=== PATIENT | female | born 1930 | race Caucasian/White ===

== ENCOUNTER 2017-01-08 17:43 | Inpatient (IN) | payer MEDICARE, OTHER ==
[~2017-01-08] VITALS: Ht 160 cm; Wt 63.9 kg
[~2017-01-08 17:43] MED LIST: ACET325T33 PO; AMLO-218 PO; CALC-459 PO; CHOL50009 PO; DOCU-144 PO; DONE10TA7 PO; FER325 PO; LEVO137T24 PO; MEMA28CA PO; MULT-212 PO; OMEP10CA2 PO; OXYC-281 PO; PARO10TA26 PO; SERT100T PO; [UNRECOGNIZED DRUG - CODE] PO
--- NOTE | 2017-01-08 18:35 | RADRPT ---
PROCEDURE: XR Chest. CLINICAL INDICATION: Shortness of breath, assess for pulmonary edema TECHNIQUE: Single frontal view of the chest was obtained. COMPARISON: None available FINDINGS: The cardiomediastinal silhouette is borderline enlarged. Pulmonary vasculature is within normal gar its. There is diffuse increased interstitial thickening. There is prominent aortic calcification.. No signs of pleural fluid or pneumothorax are seen. There is diffuse bony demineralization. IMPRESSION: 1. Hypoventilatory examination. Borderline prominent. Heart size. 2. Prominent interstitial markings likely reflecting chronic lung change. 3. Prominent aortic calcification. RPTAT: HBST .Warner Arrington MD, MD Date Time Electronically viewed and signed by .Warner Arrington MD, on 01/08/2017 18:34 .T/
[2017-01-08] MEDS ORDERED: ACET325T45 PO (18:36)
[2017-01-08] MEDS ORDERED: AMLO-147 PO (18:39)
[2017-01-08] MEDS ORDERED: DOCU-159 PO (18:40)
[2017-01-08] MEDS ORDERED: DIVA125T14 PO (18:40)
[2017-01-08] MEDS ORDERED: ERGO500037 PO (18:41)
[2017-01-08] MEDS ORDERED: EXEL46P TD (18:42)
[2017-01-08] MEDS ORDERED: LEVO137T3 PO (18:43)
[2017-01-08] MEDS ORDERED: ATOR10TA65 PO (18:43)
[2017-01-08] MEDS ORDERED: SERT25TA83 PO (18:44)
[2017-01-08] MEDS ORDERED: TRAM-40 PO (18:45)
[2017-01-08 19:06] LABS: BASOPHILS % 0.3 % (0.0-2.0); EOSINOPHILS # 0.1 10^3/ul (0.0-0.5); EOSINOPHILS % 1.6 % (0.0-7.0); HEMATOCRIT 44.6 % (37.0-47.0); HEMOGLOBIN 14.9 g/dl (12.0-16.0); LYMPHOCYTES # 2.2 10^3/ul (0.8-2.9); LYMPHOCYTES % 30.9 % (15.0-51.0); MEAN CORPUSCULAR HEMOGLOBIN 29.8 pg (29.0-33.0); MEAN CORPUSCULAR HGB CONC 33.4 g/dl (32.0-37.0); MEAN CORPUSCULAR VOLUME 89.2 fl (82.0-101.0); MEAN PLATELET VOLUME 9.5 fl (7.4-10.4); MONOCYTE # 0.5 10^3/ul (0.3-0.9); MONOCYTES % 7.4 % (0.0-11.0); NEUTROPHIL # 4.1 10^3/ul (1.6-7.5); NEUTROPHILS % 59.1 % (39.0-77.0); PLATELET COUNT 320 10^3/UL (140-415); RED CELL DISTRIBUTION WIDTH 12.3 % (11.5-14.5)
--- NOTE | 2017-01-08 19:06 | ERA ---
ER Documentation Chief Complaint Date/Time DATE: 01/08/17 TIME: 19:02 Chief Complaint CHEST PAIN WITH MILD SOB PER STAFF. NONVERBAL. COMPLAINT PER FAMILY HPI 86-year-old female with a history of CHF, hypertension, hypothyroidism, dementia , and contractures sent from her snf for evaluation of weight gain and possible heart failure. The patient is unable to give a history as she is nonverbal at baseline per EMS. ROS Limited secondary to clinical condition, nonverbal, dementia Medications Home Meds Reported Medications Tramadol Hcl* (Ultram*) 50 Mg Tablet, 50 MG PO Q12H Y for PAIN 1-01/13, TAB 01/08/17 Sertraline Hcl* (Sertraline Hcl*) 25 Mg Tablet, 25 MG PO DAILY, #30 TAB 01/08/17 Atorvastatin Calcium (Atorvastatin Calcium) 10 Mg Tablet, 10 MG PO QHS, #30 TAB 01/08/17 Levothyroxine Sodium* (Levothyroxine Sodium*) 137 Mcg Tablet, 137 MCG PO BEFORE BREAKFAST, #30 TAB 01/08/17 Rivastigmine* Patch (Exelon* Patch) 4.6 Mg/24 Hr Patch.td24, 1 PATCH TD Q24H, PATCH 01/08/17 Ergocalciferol (Vitamin D2) (VITAMIN D2) 50,000 Unit Capsule, 70277 UNIT PO Q7D , CAP 01/08/17 Docusate Sodium* (Docusate Sodium*) 100 Mg Capsule, 100 MG PO BID, #60 CAP 01/08/17 Divalproex Sodium* (Depakote*) 125 Mg Tablet.dr, 250 MG PO TID, #90 TAB 01/08/17 Amlodipine Besylate* (Amlodipine Besylate*) 10 Mg Tablet, 10 MG PO DAILY, #30 TAB HOLD FOR SBP LESS THAN 110 MMHG OR HR LESS THAN 60 BPM 01/08/17 Acetaminophen* (Acetaminophen*) 325 Mg Tablet, 650 MG PO BID Y for PAIN AND OR ELEVATED TEMP, #30 TAB 01/08/17 Discontinued Reported Medications Paroxetine Hcl* (Paxil*) 10 Mg Tablet, 5 MG PO HS, TAB 01/27/14 Sertraline Hcl* (Zoloft*) 100 Mg Tablet, 100 MG PO DAILY, TAB 01/27/14 Acetaminophen* (Tylenol*) 325 Mg Tablet, 650 MG PO Q4H Y for MILD PAIN LEVEL 1-3 , TAB 01/27/14 Oxycodone Hcl-Acetaminophen* (Percocet*) 5-325 Mg Tablet, 2 TAB PO Q4H Y for SEVERE PAIN LEVEL 7-10, TAB 01/27/14 Oxycodone Hcl-Acetaminophen* (Percocet*) 5-325 Mg Tablet, 1 TAB PO Q6 Y for PAIN , TAB 01/27/14 Docusate Sodium* (Colace*) 100 Mg Capsule, 100 MG PO BID Y for CONSTIPATION, CAP 01/27/14 Donepezil* (Aricept*) 10 Mg Tablet, 10 MG PO QHS, TAB 01/27/14 Amlodipine Besylate* (Norvasc*) 10 Mg Tablet, 10 MG PO DAILY, TAB 01/27/14 Ferrous Sulfate* (Ferrous Sulfate*) 325 Mg Tabec, 325 MG PO TID, TAB 01/27/14 Memantine* (Namenda* XR) 28 Mg Cap.spr.24, 28 MG PO DAILY, TAB 01/27/14 Levothyroxine Sodium* (Synthroid*) 137 Mcg Tablet, 137 MCG PO AC BREAKFAST, TAB 01/27/14 Omeprazole* (Prilosec*) 10 Mg Capsule.dr, 10 MG PO AC BREAKFAST, CAP 01/27/14 Amino Acids/Protein Hydrolys (Pro-Stat 64 Liquid) 30 Ml Liquid, 30 ML PO DAILY 01/27/14 Multivitamin With Minerals (ONE DAILY) 1 Each Tablet, 1 EACH PO DAILY 01/27/14 Calcium Carbonate (Calcium Carbonate) 500 Mg Tab.chew, 500 MG PO BID, TAB.CHEW 01/27/14 Cholecalciferol* (Vitamin D*) 5,000 Unit Tablet, 62334 UNIT PO WEEKLY ON THURSDAY, TAB 01/27/14 Allergies Allergies: Coded Allergies: Penicillins (Verified Allergy, Severe, 01/08/17) lactose (Unverified Allergy, Unknown, 01/08/17) PMhx/Soc History of Surgery: Yes (Right Hip ORIF 11/2013, Left Hip ORIF 2010, appendectomy) Anesthesia Reaction: No Hx Neurological Disorder: No Hx Respiratory Disorders: No Hx Cardiac Disorders: Yes (Hypertension, Palpitation) Hx Psychiatric Problems: Yes (Dementia, Alzheimer's ) Hx Miscellaneous Medical Probl: No Hx Alcohol Use: No Hx Substance Use: No Hx Tobacco Use: No Smoking Status: Never smoker FmHx Family History: other (Unable to obtain) Physical Exam Vitals Vital Signs Date Time Temp Pulse Resp B/P Pulse Ox O2 Delivery O2 Flow Rate FiO2 01/08/17 18:37 75 16 130/69 96 Room Air 01/08/17 17:50 97.8 78 16 137/70 95 Physical Exam Const: well appearing, no distress Head: Atraumatic Eyes: Normal Conjunctiva ENT: Normal External Ears, Nose and Mouth. Neck: No JVD. No meningismus. Resp: Diminished bilaterally with bibasilar crackles, however poor respiratory effort Cardio: Regular rate and rhythm, 2/6 HSM Abd: Soft, non tender, non distended. Normal bowel sounds Skin: No petechiae or rashes Ext: No cyanosis, or edema. contractures of extremities Neur: Awake and alert, makes incomprehensible sounds, nonverbal. spontaneously moving arms and legs. Psych: calm Procedures/MDM EMERGENT LABS AND DIAGNOSTIC STUDIES: Lab Results above were reviewed and interpreted by me. CBC and BMP unremarkable Troponin within normal limits BNP elevated Urinalysis shows evidence of possible infection 12-lead EKG was interpreted by Pippa Guadarrama MD: Atrial flutter versus normal sinus rhythm Dense of old anterior, lateral, inferior infarct Normal axis Normal intervals No acute ST or T wave changes suggestive of acute ischemia or STEMI. Radiology Results as interpreted by Radiology below were reviewed by Marcus Guadarrama MD: CXR: IMPRESSION: 1. Hypoventilatory examination. Borderline prominent. Heart size. 2. Prominent interstitial markings likely reflecting chronic lung change. 3. Prominent aortic calcification. RPTAT: HBST .Warner Arrington MD, Date Time Electronically viewed and signed by .Warner Arrington MD, on 01/08/2017 18:34 Initial Nursing notes reviewed. Previous Medical Records requested via the Electronic Health Record. EMERGENCY DEPARTMENT COURSE / MEDICAL DECISION MAKING: Patient is presenting with weight gain and for evaluation for CHF. Initial vitals were stable. EKG did not show acute ischemia. Initial troponin is negative. Chest x-ray did not show evidence of fluid overload or pneumonia. I spoke with her primary care doctor, , requested the patient be admitted for her weight gain and possible heart failure. Patient's blood pressure was elevated (>120/80) but appears stable without evidence of hypertensive emergency or urgency. The patient was counseled about the risks of hypertension and urged to pursue outpatient monitoring and therapy within a week with their primary care physician. Departure Diagnosis: Primary Impression: Weight gain Condition: Stable SOILA GUADARRAMA MD Jan 08, 2017 19:06
[2017-01-08 19:19] LABS: ANION GAP 9 (8-16); BLOOD UREA NITROGEN 11 mg/dl (7-20); CALCIUM 9.8 mg/dl (8.4-10.2); CARBON DIOXIDE 32 mmol/L (21-31); CHLORIDE 104 mmol/L (97-110); CREATININE 0.56 mg/dl (0.44-1.00); GLUCOSE 87 mg/dl (70-220); POTASSIUM 4.3 mmol/L (3.5-5.1); SODIUM 141 mmol/L (135-144)
[2017-01-08 19:34] LABS: TROPONIN-I < 0.012 ng/ml (0.00-0.12)
[2017-01-08 20:18] LABS: ADD UMIC YES; UR ASCORBIC ACID 40 mg/dL (NEGATIVE); UR BILIRUBIN (Dip) NEGATIVE (NEGATIVE); UR BLOOD (Dip) 1+ mg/dL (NEGATIVE); UR CLARITY CLOUDY (CLEAR); UR COLOR YELLOW (YELLOW); UR GLUCOSE (Dip) NEGATIVE (NEGATIVE); UR KETONES (Dip) NEGATIVE (NEGATIVE); UR LEUKOCYTE ESTERASE (Dip) 3+ Leu/ul (NEGATIVE); UR MUCUS FEW /HPF (NONE SEEN); UR NITRITE (Dip) NEGATIVE (NEGATIVE); UR RBC 19 /HPF (0-5); UR SPECIFIC GRAVITY (Dip) 1.012 (1.003-1.030); UR TOTAL PROTEIN (Dip) NEGATIVE (NEGATIVE); UR UROBILINOGEN (Dip) NEGATIVE (NEGATIVE)
[2017-01-08] MEDS ORDERED: ACETAMINOPHEN 325 MG TAB PO PRN (20:30)
[2017-01-08] MEDS ORDERED: ONDANSETRON 4 MG INJ IV PRN (20:30)
[2017-01-08 20:50] VITALS: Ht 160 cm; Wt 63.9 kg
[2017-01-08] MEDS ORDERED: RIVASTIGMINE 4.6MG/24H PATCH TRANSDERM SCH (22:30)
[2017-01-08] MEDS ORDERED: ERGOCALCIFEROL 50,000 UNIT CAP PO SCH (22:30)
[2017-01-08] MEDS ORDERED: traMADol 50 MG TAB PO PRN (22:30)
[2017-01-08] MEDS ORDERED: DOCUSATE SODIUM 100 MG CAP PO SCH (22:30)
[2017-01-09] MEDS: DIVALPROEX (EC) 125 MG TAB PO SCH ×4 (00:07→20:53)
[2017-01-09 03:16] VITALS: BP 142/65; RESP 16
[2017-01-09 05:13] LABS: BASOPHILS % 0.6 % (0.0-2.0); EOSINOPHILS # 0.3 10^3/ul (0.0-0.5); EOSINOPHILS % 3.4 % (0.0-7.0); HEMOGLOBIN 13.9 g/dl (12.0-16.0); LYMPHOCYTES # 2.4 10^3/ul (0.8-2.9); LYMPHOCYTES % 32.3 % (15.0-51.0); MEAN CORPUSCULAR HEMOGLOBIN 29.3 pg (29.0-33.0); MEAN CORPUSCULAR HGB CONC 33.1 g/dl (32.0-37.0); MEAN CORPUSCULAR VOLUME 88.4 fl (82.0-101.0); MEAN PLATELET VOLUME 9.5 fl (7.4-10.4); MONOCYTE # 0.7 10^3/ul (0.3-0.9); MONOCYTES % 9.2 % (0.0-11.0); NEUTROPHIL # 3.9 10^3/ul (1.6-7.5); NEUTROPHILS % 53.8 % (39.0-77.0); PLATELET COUNT 300 10^3/UL (140-415); RED BLOOD COUNT 4.75 10^6/ul (4.20-5.40); RED CELL DISTRIBUTION WIDTH 12.6 % (11.5-14.5); WHITE BLOOD COUNT 7.3 10^3/ul (4.8-10.8)
[2017-01-09 05:49] LABS: CALCIUM 9.4 mg/dl (8.4-10.2); CREATININE 0.47 mg/dl (0.44-1.00); POTASSIUM 3.8 mmol/L (3.5-5.1)
[2017-01-09] MEDS: LEVOTHYROXINE 137 MCG TAB PO SCH (07:31)
[2017-01-09 08:20] VITALS: BP 113/54; RESP 17
[2017-01-09] MEDS: AMLODIPINE 10 MG TAB PO SCH (08:36)
[2017-01-09] MEDS: SERTRALINE 50 MG TAB PO SCH (08:36)
[2017-01-09] MEDS: DOCUSATE SODIUM 100 MG CAP PO SCH ×2 (08:39→20:52)
[2017-01-09] MEDS ORDERED: DIVALPROEX (EC) 125 MG TAB PO SCH (09:00)
[2017-01-09] MEDS: RIVASTIGMINE 4.6MG/24H PATCH TRANSDERM SCH (11:32)
[2017-01-09] MEDS ORDERED: LEVALBUTEROL (NEB) 0.63 MG/3 ML AMP HHN PRN (13:00)
--- NOTE | 2017-01-09 13:35 | HP ---
DATE OF ADMISSION: 01/08/2017 CHIEF COMPLAINT: Chest pain with mild shortness of breath per staff. The patient is nonverbal with underlying dementia. HISTORY OF PRESENT ILLNESS: The patient is an 86-year-old female with history of dementia, congesti ve heart failure, hypertension, hypothyroidism, anxiety and high cholesterol. The patient was sent from [facility] for complaints of shortness of breath in chains per family member and also evaluation for recent weight gain. The patient is nonverbal at baseline. Most of the history was obtained from medical records and talking to the nursing staff. The patient underwent a 12-lead EKG in the emergency room which revealed atrial flutter versus normal sinus rhythm and old anterior and lateral inferior infarct, no acute ST-T wave changes suggestive of acute ischemia, non-ST eleva tion myocardial infarction. The patient's troponin was negative on admission. However, the BNP was elevated to 486. Patient also noted to have positive leukocyte esterase on urinalysis. However, p atient did not have any leukocytosis. Chest x-ray in the emergency room revealed hypoventilatory ex amination, borderline prominent heart size, prominence of interstitial markings likely reflecting ch ronic lung change, prominent aortic calcifications. The patient will be admitted for further evalua tion and management. PAST MEDICAL HISTORY: Per HPI. PAST SURGICAL HISTORY: Right hip ORIF on 11/2013, left hip ORIF in 2010 and status post appendectom y. FAMILY HISTORY: Noncontributory. SOCIAL HISTORY: Patient is a resident of detention facility. No history of tobacco, alcohol or illicit drug use reported. ALLERGIES: PATIENT IS ALLERGIC TO PENICILLIN ANTIBIOTICS, LACTOSE. MEDICATIONS ON ADMISSION: Includes: 1. Tramadol. 2. Sertraline. 3. Atorvastatin. 4. Levothyroxine. 5. Exelon patch. 6. Vitamin D2. 7. Colace. 8. Depakote. 9. Amlodipine. 10. Tylenol. REVIEW OF SYSTEMS: A 12-point review of systems is negative unless what mentioned in the HPI. PHYSICAL ASSESSMENT: GENERAL: Well-developed, well-nourished female who is awake and nonverbal at baseline, moans in res ponse to touch. VITAL SIGNS: Temperature is 96.7, heart rate is 82, blood pressure is 113/54, respiratory rate 17, oxygen saturation 96% on room air. HEENT: Head is atraumatic, normocephalic. Pupils equal, round, reactive to light and accommodation . Oral mucosa is pink and moist. NECK: Supple, no cervical lymphadenopathy. JVD is present. LUNGS: Diminished bilaterally with bibasilar crackles with poor respiratory effort. No wheezing no kaylie. CARDIOVASCULAR: Irregular rhythm and rate. II/ murmur noted. ABDOMEN: Round, soft, nondistended, nontender. Bowel sounds present. No guarding, no rebound tend erness. EXTREMITIES: Mild edema 2+ bilateral lower extremity and contracted. NEUROLOGIC: The patient is awake, alert, spontaneously moves upper extremities and lower extremity with contracture awake, alert, nonverbal at baseline. LABORATORY DATA: On admission, CBC: White blood cells 7.0, hemoglobin 14.9, hematocrit 44.6, plate lets 320. Chemistry: Sodium is 141, potassium 4.3, chloride 104, carbon dioxide 32, anion gap 9, B UN is 11, creatinine 0.52, glucose 87, calcium 9.8. Troponin less than 0.012. BNP is 486. ASSESSMENT AND PLAN: 1. Possible congestive heart failure exacerbation. We will obtain 2D echo to evaluate left ventric ular and valvular function. We will ask Dr. Dyer to see patient in cardiology consultation. 2. Rule out acute coronary syndrome. We will obtain cardiac enzymes q.8 hours x2. 3. Shortness of breath secondary to congestive heart failure exacerbation. 4. Possible urinary tract infection. Will obtain urine culture and start Levaquin. 5. Hypothyroidism. Continue current dose of Synthroid. Will check TSH and T4. 6. Alzheimer dementia. We will continue Exelon patch. 7. Hypertension. The patient is currently normotensive. Further recommendations based on clinical course. We will continue Lovenox for deep venous thrombosis prophylaxis and Pepcid for peptic ulce r disease prophylaxis. Further recommendations based on clinical course. Plan of care discussed [facility] Dr. Mckinney. Dictated By: ALO GUERRERO HOT DOG VENDOR for FRANKY MCKINNEY MD SR/NTS Conf#: [id number] DID#: [id number]
[2017-01-09 13:52] LABS: CHOL/HDL RATIO 3.3 RATIO
[2017-01-09 14:22] LABS: THYROID STIMULATING HORMONE 4.91 MIU/L (0.465-4.680)
[2017-01-09] MEDS: FAMOTIDINE 20 MG TAB PO SCH (14:54)
[2017-01-09] MEDS: LEVOFLOXACIN 250MG/D5W (PMX) 50 ML IVPB SCH (14:54)
[2017-01-09] MEDS: ENOXAPARIN 30 MG/0.3 ML SYG SC SCH (14:55)
--- NOTE | 2017-01-09 16:16 | RADRPT ---
PROCEDURE: US Lower extremity Venous. CLINICAL INDICATION: Bilateral lower extremity edema TECHNIQUE: Multiple sonographic images of the bilateral lower extremity deep venous system was obt ained utilizing grayscale, color-flow, compressive sonography and doppler imaging with augmentation. The images were reviewed on a PACS workstation. COMPARISON: US LOWER EXTREMITY 01/27/2014 FINDINGS: There is normal compressibility and flow within the bilateral common femoral, femoral , posterior ti bial and popliteal veins. RPTAT: AA IMPRESSION: No sonographic evidence for deep venous thrombosis. .Humberto Rai MD, MD Date Time Electronically viewed and signed by .Humberto Rai MD, on 01/09/2017 16:16 .S/
[2017-01-09] MEDS ORDERED: FUROSEMIDE 20 MG INJ IV SCH (16:30)
[2017-01-09] MEDS: POTASSIUM CHLORIDE (SR) 10 MEQ TAB PO SCH (17:56)
[2017-01-09 18:59] LABS: CREATINE KINASE 32 IU/L (23-200)
[2017-01-09 19:11] LABS: CK-MB 0.49 ng/ml (0.0-2.4); TROPONIN-I < 0.012 ng/ml (0.00-0.12)
[2017-01-09 20:00] VITALS: BP 116/85; RESP 20
--- NOTE | 2017-01-09 20:17 | RADRPT ---
Echocardiogram Report Patient Name: IVY BRICENO Gender: Female Date: 1930 Study Date: 09-Jan-2017 Ceramic Coater: [facility] Location: 2264 Ref. Physician: ALO GUERRERO Quality: Good Procedures: Transthoracic echocardiogram with complete 2D, M-Mode, and doppler examination. Indications: Evaluate Left Ventricular function. Murmur. 2D/M Mode Doppler Measurement Value Normal Ranges Measurement Value Normal Ranges AoR Diam MM 3.0 cm AV Mean Dimitri 2.6 m/sec ACS MM 1.6 cm AV Mean PG 30.0 mmHg LA/Ao MM 1.0 AV Peak Dimitri 3.7 m/sec LA Dimen MM 3.0 cm AV Peak PG 54.0 mmHg LVIDd 2D 3.4 3.5 - 5.6 cm AV VTI 71.4 cm LVIDs 2D 2.7 2.1 - 4.1 cm MV E Peak Dimitri 0.9 m/sec LVPWd 2D 1.2 0.6 - 1.1 cm MV A Peak Dimitri 1.5 m/sec IVSd 2D 1.2 0.6 - 1.1 cm MV E/A 0.6 EDV 2D 48.9 cm3 MV Decel Time 323 msec ESV 2D 19.[address] [facility] 3 LA Dimen 2D 3.0 2.3 - 4.0 cm MV E/A 0.6 TR Peak Dimitri 2.9 m/sec TR Peak PG 33.7 mmHg Findings Left Ventricle: Hyperdynamic left ventricular systolic function. Normal left ventricular cavity size. Mild concentric left ventricular hypertrophy. Ejection fraction is visually estimated at >65 %. Tissue Doppler/Mitral Doppler indices are consistent with pseudonormalization with mildly elevated left atrial pressure (Stage II diastolic dysfunction). Right Ventricle: Normal right ventricular size. Normal right ventricular systolic function. Left Atrium: The left atrium is normal in size. Right Atrium: The right atrium is normal in size. Mitral Valve: Moderate mitral annular calcification. Trace mitral regurgitation. Aortic Valve: Moderate aortic stenosis. Mean PG 30.00 mmHg. Aortic cusps appear mildly calcified. Tricuspid Valve: Normal appearance of the tricuspid valve. There is trace tricuspid regurgitation. Pulmonic Valve: Normal pulmonic valve appearance. Pericardium: Normal pericardium with no significant pericardial effusion. Aorta: Normal aortic root. IVC: Normal size and normal respiratory collapse consistent with normal right atrial pressure. Pulmonary Artery: Not well visualized. Conclusions 1.Hyperdynamic left ventricular systolic function. Normal left ventricular cavity size. Mild concentric left ventricular hypertrophy. Ejection fraction is visually estimated at >65 %. Tissue Doppler/Mitral Doppler indices are consistent with pseudonormalization with mildly elevated left atrial pressure (Stage II diastolic dysfunction). 2.Moderate mitral annular calcification. Trace mitral regurgitation. 3.Moderate aortic stenosis by gradient only. LALO not calculated by lead medical technologist. Mean PG 30.00 mmHg. Aortic cusps appear mildly calcified. 4.Normal appearance of the tricuspid valve. There is trace tricuspid regurgitation. Electronically Signed By: Mathew Dyer 09-Jan-2017 20:16:56 -0700 Patient Name: IVY BRICENO Study Date: 09-Jan-2017 [id number]
[2017-01-09] MEDS: ISOSORBIDE DINITRATE 10 MG TAB PO SCH (20:53)
[2017-01-09] MEDS: ATORVASTATIN 10 MG TAB PO SCH (20:53)
[2017-01-09] MEDS ORDERED: INFLUENZA VIRUS VACCINE 0.5 ML SYG IM* ONE (21:00)
[2017-01-10 01:37] LABS: CREATINE KINASE 22 IU/L (23-200)
[2017-01-10 01:43] LABS: CK-MB 0.57 ng/ml (0.0-2.4)
[2017-01-10 01:44] LABS: TROPONIN-I < 0.012 ng/ml (0.00-0.12)
[2017-01-10 02:00] VITALS: BP 131/65; RESP 20
[2017-01-10] MEDS: FUROSEMIDE 20 MG INJ IV SCH ×2 (05:23→17:29)
[2017-01-10 06:34] LABS: BASOPHIL # 0.1 10^3/ul (0.0-0.1); BASOPHILS % 0.7 % (0.0-2.0); EOSINOPHILS # 0.4 10^3/ul (0.0-0.5); EOSINOPHILS % 4.8 % (0.0-7.0); HEMATOCRIT 39.6 % (37.0-47.0); HEMOGLOBIN 13.2 g/dl (12.0-16.0); LYMPHOCYTES # 1.9 10^3/ul (0.8-2.9); LYMPHOCYTES % 25.9 % (15.0-51.0); MEAN CORPUSCULAR HEMOGLOBIN 29.7 pg (29.0-33.0); MEAN CORPUSCULAR HGB CONC 33.3 g/dl (32.0-37.0); MEAN CORPUSCULAR VOLUME 89.2 fl (82.0-101.0); MEAN PLATELET VOLUME 9.5 fl (7.4-10.4); MONOCYTE # 0.7 10^3/ul (0.3-0.9); MONOCYTES % 9.4 % (0.0-11.0); NEUTROPHIL # 4.3 10^3/ul (1.6-7.5); NEUTROPHILS % 58.4 % (39.0-77.0); PLATELET COUNT 305 10^3/UL (140-415); RED BLOOD COUNT 4.44 10^6/ul (4.20-5.40); RED CELL DISTRIBUTION WIDTH 12.5 % (11.5-14.5); WHITE BLOOD COUNT 7.3 10^3/ul (4.8-10.8)
[2017-01-10 06:50] LABS: CALCIUM 9.4 mg/dl (8.4-10.2); CREATININE 0.55 mg/dl (0.44-1.00); POTASSIUM 3.6 mmol/L (3.5-5.1)
[2017-01-10] MEDS: LEVOTHYROXINE 137 MCG TAB PO SCH (07:59)
[2017-01-10 08:00] VITALS: BP 135/64; RESP 18
[2017-01-10] MEDS: DOCUSATE SODIUM 10 MG/ML (10ML CUP) PO SCH ×2 (09:35→20:06)
[2017-01-10] MEDS: SERTRALINE 50 MG TAB PO SCH (09:36)
[2017-01-10] MEDS: POTASSIUM CHLORIDE (SR) 10 MEQ TAB PO SCH (09:36)
[2017-01-10] MEDS: FAMOTIDINE 20 MG TAB PO SCH (09:36)
[2017-01-10] MEDS: AMLODIPINE 10 MG TAB PO SCH (09:37)
[2017-01-10] MEDS: ISOSORBIDE DINITRATE 10 MG TAB PO SCH ×3 (09:37→20:07)
[2017-01-10] MEDS: ENOXAPARIN 30 MG/0.3 ML SYG SC SCH (09:40)
[2017-01-10 09:58] LABS: ALBUMIN 3.3 g/dl (3.3-4.9); BILIRUBIN,INDIRECT 0.2 mg/dl (0-1.1); BILIRUBIN,TOTAL 0.2 mg/dl (0.2-1.3); TOTAL PROTEIN 6.4 g/dl (6.1-8.1)
[2017-01-10] MEDS: RIVASTIGMINE 4.6MG/24H PATCH TRANSDERM SCH (11:01)
[2017-01-10] MEDS: VALPROIC ACID LIQUID CUP 250 MG/5 ML CUP PO SCH ×3 (11:03→20:06)
--- NOTE | 2017-01-10 12:10 | PN ---
Date/Time of Note Date/Time of Note DATE: 01/10/17 TIME: 12:04 Assessment/Plan VTE Prophylaxis VTE Prophylaxis Intervention: other Lines/Catheters IV [facility] Urinary Cath still in place: No Assessment/Plan Assessment/Plan 1. Possible congestive heart failure exacerbation. We will obtain 2D echo to evaluate left ventricular and valvular function. We will ask Dr. Dyer to see patient in cardiology consultation. 2. Rule out acute coronary syndrome. We will obtain cardiac enzymes q.8 hours x2. 3. Shortness of breath secondary to congestive heart failure exacerbation. 4. Possible urinary tract infection. Will obtain urine culture and start Levaquin. 5. Hypothyroidism. Continue current dose of Synthroid. Will check TSH and T4. 6. Alzheimer dementia. We will continue Exelon patch. 7. Hypertension. The patient is currently normotensive. Further recommendations based on clinical course. We will continue Lovenox for deep venous thrombosis prophylaxis and Pepcid for peptic ulcer disease prophylaxis. Further recommendations based on clinical course. Plan of care discussed with Dr. Mckinney. Subjective 24 Hr Interval Summary Free Text/Dictation Steve any chest pain, shortness of breath, C/O DRY COUGH, AFEBRILE Cardiology follows. dw staff Constitutional: requiring O2 Exam/Review of Systems Vital Signs Vitals Vital Signs Date Time Temp Pulse Resp B/P Pulse Ox O2 Delivery O2 Flow Rate FiO2 01/10/17 08:00 97.5 76 18 135/64 95 01/08/17 20:10 Room Air Intake and Output 01/09/17 01/09/17 01/10/17 15:00 23:00 07:00 Intake Total 480 ml 0 ml Balance 480 ml 0 ml Exam Constitutional: alert Respiratory: diminished breath sounds, normal air movement Cardiovascular: regular rate and rhythm Gastrointestinal: non-tender, soft Musculoskeletal: nl extremities to inspection Results Result Diagram: 01/10/17 0535 01/10/17 0535 Results 24 hrs Laboratory Tests Test 01/09/17 18:07 01/10/17 00:51 01/10/17 05:35 Creatine Kinase 32 22 L Creatine Kinase Index 1.5 2.6 Creatinine Kinase MB (Mass) 0.49 0.57 Troponin I < 0.012 < 0.012 White Blood Count 7.3 Red Blood Count 4.44 Hemoglobin 13.2 Hematocrit 39.6 Mean Corpuscular Volume 89.2 Mean Corpuscular Hemoglobin 29.7 Mean Corpuscular Hemoglobin Concent 33.3 Red Cell Distribution Width 12.5 Platelet Count 305 Mean Platelet Volume 9.5 Neutrophils % 58.4 Lymphocytes % 25.9 Monocytes % 9.4 Eosinophils % 4.8 Basophils % 0.7 Nucleated Red Blood Cells % 0.0 Neutrophils # 4.3 Lymphocytes # 1.9 Monocytes # 0.7 Eosinophils # 0.4 Basophils # 0.1 Nucleated Red Blood Cells # 0.0 Sodium Level 137 Potassium Level 3.6 Chloride Level 103 Carbon Dioxide Level 30 Anion Gap 8 Blood Urea Nitrogen 12 Creatinine 0.55 Glucose Level 97 Calcium Level 9.4 Total Bilirubin 0.2 Direct Bilirubin 0.00 Indirect Bilirubin 0.2 Aspartate Amino Transf (AST/SGOT) 42 Alanine Aminotransferase (ALT/SGPT) 32 Alkaline Phosphatase 60 Total Protein 6.4 Albumin 3.3 Medications Medications Current Medications Acetaminophen (Tylenol Tab) 650 mg BID PRN PO PAIN AND OR ELEVATED TEMP; Start 01/08/17 at 22:30 Amlodipine Besylate (Norvasc) 10 mg DAILY PO Last administered on 01/10/17 09: 37; Admin Dose 10 MG; Start 01/09/17 at 09:00 Atorvastatin Calcium (Lipitor) 10 mg QHS PO Last administered on 01/09/17 20: 53; Admin Dose 10 MG; Start 01/09/17 at 21:00 Sertraline HCl (Zoloft) 25 mg DAILY PO Last administered on 01/10/17 09:36; Admin Dose 25 MG; Start 01/09/17 at 09:00 Tramadol HCl (Ultram) 50 mg Q12H PRN PO PAIN -01/13; Start 01/08/17 at 22:30 Ergocalciferol (Drisdol) 50,000 unit Tu@09 PO ; Start 01/13/17 at 09:00 Rivastigmine Tartrate 1 patch 1 patch Q24H TRANSDERM Last administered on 11:01; Admin Dose 1 PATCH; Start 01/09/17 at 10:15 Levofloxacin/ Dextrose (Levaquin 250 Mg/ D5W 50 ml (Pmx)) 50 ml @ 50 mls/hr Q24H IVPB Last administered on 01/09/17 14:54; Admin Dose 50 MLS/HR; Start at 14:00 Famotidine (Pepcid) 20 mg DAILY PO Last administered on 01/10/17 09:36; Admin Dose 20 MG; Start 01/09/17 at 13:00 Enoxaparin Sodium (Lovenox) 30 mg DAILY SC Last administered on 01/10/17 09:40 ; Admin Dose 30 MG; Start 01/09/17 at 13:00 Potassium Chloride (Klor-Con 10) 10 meq DAILY PO Last administered on 09:36; Admin Dose 10 MEQ; Start 01/09/17 at 16:30 Isosorbide Dinitrate (Isordil) 10 mg TID PO Last administered on 01/10/17 09: 37; Admin Dose 10 MG; Start 01/09/17 at 21:00 Docusate Sodium (Colace Liquid Cup) 100 mg BID PO Last administered on 09:35; Admin Dose 100 MG; Start 01/10/17 at 09:00 Valproate Sodium (Depakene Liquid Cup) 250 mg TID PO Last administered on 11:03; Admin Dose 250 MG; Start 01/10/17 at 09:00 TRAVIS MARTINS Jan 10, 2017 12:10
[2017-01-10 14:00] VITALS: BP 123/63; RESP 18
[2017-01-10] MEDS: LEVOFLOXACIN 250MG/D5W (PMX) 50 ML IVPB SCH (14:08)
[2017-01-10] MEDS: ACETAMINOPHEN 325 MG TAB PO PRN (14:08)
--- NOTE | 2017-01-10 15:42 | CONS ---
Date/Time of Note Date/Time of Note DATE: 01/10/17 TIME: 15:38 Assessment/Plan Assessment/Plan Additional Assessment/Plan Congestive heart failure Hypertension Dyslipidemia Hypothyroidism Anxiety Heart failure clinically compensated Continue Diurese with Lasix Continue Norvasc Continue Imdur Continue Lipitor Continue GI and DVT Prophylaxis Consultation Date/Type/Reason Admit Date/Time Jan 08, 2017 at 20:12 Constitutional: requiring O2 Social History Smoking Status: Never smoker Exam/Review of Systems Vital Signs Vitals Vital Signs Date Time Temp Pulse Resp B/P Pulse Ox O2 Delivery O2 Flow Rate FiO2 01/10/17 08:00 97.5 76 18 135/64 95 01/08/17 20:10 Room Air Intake and Output 01/09/17 01/09/17 01/10/17 15:00 23:00 07:00 Intake Total 480 ml 0 ml Balance 480 ml 0 ml Exam Psych: no complaints Head: atraumatic, normocephalic Neck: non-tender, supple Respiratory: clear to auscultation Cardiovascular: regular rate and rhythm Gastrointestinal: nl liver, spleen, non-tender, soft Extremities: normal pulses Results Result Diagram: 01/10/17 0535 01/10/17 0535 Results 24 hrs Laboratory Tests Test 01/09/17 18:07 01/10/17 00:51 01/10/17 05:35 01/10/17 13:00 Creatine Kinase 32 22 L Creatine Kinase Index 1.5 2.6 Creatinine Kinase MB (Mass) 0.49 0.57 Troponin I < 0.012 < 0.012 White Blood Count 7.3 Red Blood Count 4.44 Hemoglobin 13.2 Hematocrit 39.6 Mean Corpuscular Volume 89.2 Mean Corpuscular Hemoglobin 29.7 Mean Corpuscular Hemoglobin Concent 33.3 Red Cell Distribution Width 12.5 Platelet Count 305 Mean Platelet Volume 9.5 Neutrophils % 58.4 Lymphocytes % 25.9 Monocytes % 9.4 Eosinophils % 4.8 Basophils % 0.7 Nucleated Red Blood Cells % 0.0 Neutrophils # 4.3 Lymphocytes # 1.9 Monocytes # 0.7 Eosinophils # 0.4 Basophils # 0.1 Nucleated Red Blood Cells # 0.0 Sodium Level 137 Potassium Level 3.6 Chloride Level 103 Carbon Dioxide Level 30 Anion Gap 8 Blood Urea Nitrogen 12 Creatinine 0.55 Glucose Level 97 Calcium Level 9.4 Total Bilirubin 0.2 Direct Bilirubin 0.00 Indirect Bilirubin 0.2 Aspartate Amino Transf (AST/SGOT) 42 Alanine Aminotransferase (ALT/SGPT) 32 Alkaline Phosphatase 60 Total Protein 6.4 Albumin 3.3 Thyroid Stimulating Hormone (TSH) 4.310 Medications Medications Current Medications Acetaminophen (Tylenol Tab) 650 mg BID PRN PO PAIN AND OR ELEVATED TEMP Last administered on 01/10/17 14:08; Admin Dose 650 MG; Start 01/08/17 at 22:30 Amlodipine Besylate (Norvasc) 10 mg DAILY PO Last administered on 01/10/17 09: 37; Admin Dose 10 MG; Start 01/09/17 at 09:00 Atorvastatin Calcium (Lipitor) 10 mg QHS PO Last administered on 01/09/17 20: 53; Admin Dose 10 MG; Start 01/09/17 at 21:00 Sertraline HCl (Zoloft) 25 mg DAILY PO Last administered on 01/10/17 09:36; Admin Dose 25 MG; Start 01/09/17 at 09:00 Tramadol HCl (Ultram) 50 mg Q12H PRN PO PAIN 1-01/13; Start 01/08/17 at 22:30 Ergocalciferol (Drisdol) 50,000 unit Tu@09 PO ; Start 01/13/17 at 09:00 Rivastigmine Tartrate 1 patch 1 patch Q24H TRANSDERM Last administered on 11:01; Admin Dose 1 PATCH; Start 01/09/17 at 10:15 Levofloxacin/ Dextrose (Levaquin 250 Mg/ D5W 50 ml (Pmx)) 50 ml @ 50 mls/hr Q24H IVPB Last administered on 01/10/17 14:08; Admin Dose 50 MLS/HR; Start at 14:00 Famotidine (Pepcid) 20 mg DAILY PO Last administered on 01/10/17 09:36; Admin Dose 20 MG; Start 01/09/17 at 13:00 Enoxaparin Sodium (Lovenox) 30 mg DAILY SC Last administered on 01/10/17 09:40 ; Admin Dose 30 MG; Start 01/09/17 at 13:00 Potassium Chloride (Klor-Con 10) 10 meq DAILY PO Last administered on 09:36; Admin Dose 10 MEQ; Start 01/09/17 at 16:30 Isosorbide Dinitrate (Isordil) 10 mg TID PO Last administered on 01/10/17 14: 08; Admin Dose 10 MG; Start 01/09/17 at 21:00 Docusate Sodium (Colace Liquid Cup) 100 mg BID PO Last administered on 09:35; Admin Dose 100 MG; Start 01/10/17 at 09:00 Valproate Sodium (Depakene Liquid Cup) 250 mg TID PO Last administered on 14:08; Admin Dose 250 MG; Start 01/10/17 at 09:00 AVZQUEZ MARROQUIN M.D. Jan 10, 2017 15:42
--- NOTE | 2017-01-10 16:52 | RADRPT ---
PROCEDURE: XR Chest. CLINICAL INDICATION: Shortness of breath. TECHNIQUE: Single frontal view. COMPARISON: 01/08/2017. FINDINGS: The lungs are clear. The heart size is normal. There is calcification in the aorta consistent with atherosclerosis. There is no pleural effusion. There is no pneumothorax. IMPRESSION: 1. Atherosclerosis. 2. Clear lungs. RPTAT: QQ .Amadeo Crane MD, MD Date Time Electronically viewed and signed by .Amadeo Crane MD, on 01/10/2017 16:52 .R/
[2017-01-10 20:00] VITALS: BP_SYST 100; BP_SYST 124; BP_DIAS 59; BP_DIAS 69; RESP 18; RESP 20
[2017-01-10] MEDS: ATORVASTATIN 10 MG TAB PO SCH (20:06)
[2017-01-11 02:00] VITALS: BP 134/62; RESP 18
[2017-01-11] MEDS: FUROSEMIDE 20 MG INJ IV SCH ×2 (05:12→17:38)
[2017-01-11 07:02] LABS: BASOPHIL # 0.1 10^3/ul (0.0-0.1); BASOPHILS % 0.7 % (0.0-2.0); EOSINOPHILS # 0.3 10^3/ul (0.0-0.5); EOSINOPHILS % 3.5 % (0.0-7.0); HEMATOCRIT 43.3 % (37.0-47.0); HEMOGLOBIN 14.5 g/dl (12.0-16.0); LYMPHOCYTES % 26.9 % (15.0-51.0); MEAN CORPUSCULAR HEMOGLOBIN 29.4 pg (29.0-33.0); MEAN CORPUSCULAR HGB CONC 33.5 g/dl (32.0-37.0); MEAN CORPUSCULAR VOLUME 87.8 fl (82.0-101.0); MEAN PLATELET VOLUME 9.3 fl (7.4-10.4); MONOCYTE # 0.7 10^3/ul (0.3-0.9); NEUTROPHIL # 4.3 10^3/ul (1.6-7.5); NEUTROPHILS % 58.9 % (39.0-77.0); PLATELET COUNT 317 10^3/UL (140-415); RED BLOOD COUNT 4.93 10^6/ul (4.20-5.40); RED CELL DISTRIBUTION WIDTH 12.3 % (11.5-14.5); WHITE BLOOD COUNT 7.4 10^3/ul (4.8-10.8)
[2017-01-11 07:25] LABS: CALCIUM 9.2 mg/dl (8.4-10.2); CREATININE 0.55 mg/dl (0.44-1.00); POTASSIUM 3.7 mmol/L (3.5-5.1)
[2017-01-11 08:00] VITALS: BP 141/68; RESP 18
[2017-01-11] MEDS: FAMOTIDINE 20 MG TAB PO SCH (08:17)
[2017-01-11] MEDS: SERTRALINE 50 MG TAB PO SCH (08:17)
[2017-01-11] MEDS: AMLODIPINE 10 MG TAB PO SCH (08:18)
[2017-01-11] MEDS: ISOSORBIDE DINITRATE 10 MG TAB PO SCH ×3 (08:18→22:00)
[2017-01-11] MEDS: DOCUSATE SODIUM 10 MG/ML (10ML CUP) PO SCH ×2 (08:18→21:58)
[2017-01-11] MEDS: POTASSIUM CHLORIDE (SR) 10 MEQ TAB PO SCH (08:18)
[2017-01-11] MEDS: LEVOTHYROXINE 137 MCG TAB PO SCH (08:19)
[2017-01-11] MEDS: VALPROIC ACID LIQUID CUP 250 MG/5 ML CUP PO SCH ×3 (08:19→21:58)
[2017-01-11] MEDS: ENOXAPARIN 30 MG/0.3 ML SYG SC SCH (08:20)
[2017-01-11] MEDS: RIVASTIGMINE 4.6MG/24H PATCH TRANSDERM SCH (11:15)
--- NOTE | 2017-01-11 12:34 | PN ---
Date/Time of Note Date/Time of Note DATE: 01/11/17 TIME: 12:33 Assessment/Plan VTE Prophylaxis VTE Prophylaxis Intervention: other Lines/Catheters IV C[facility]ter Type (from [facility]): Saline Lock Urinary Cath still in place: No Assessment/Plan Assessment/Plan 1. Possible congestive heart failure exacerbation. - perp cardiology 2. Rule out acute coronary syndrome. 3. Shortness of breath secondary to congestive heart failure exacerbation. 4. Possible urinary tract infection. Will obtain urine culture and start Levaquin. 5. Hypothyroidism. Continue current dose of Synthroid. Will check TSH and T4. 6. Alzheimer dementia. We will continue Exelon patch. 7. Hypertension. The patient is currently normotensive. Further recommendations based on clinical course. We will continue Lovenox for deep venous thrombosis prophylaxis and Pepcid for peptic ulcer disease prophylaxis. Further recommendations based on clinical course. Plan of care discussed with Dr. Mckinney. Subjective 24 Hr Interval Summary Constitutional: requiring O2 Exam/Review of Systems Vital Signs Vitals Vital Signs Date Time Temp Pulse Resp B/P Pulse Ox O2 Delivery O2 Flow Rate FiO2 01/11/17 08:00 97.4 76 18 141/68 97 01/08/17 20:10 Room Air Intake and Output 01/10/17 01/10/17 01/11/17 14:59 22:59 06:59 Intake Total 50 ml 740 ml 0 ml Balance 50 ml 740 ml 0 ml Exam Respiratory: diminished breath sounds, normal air movement Cardiovascular: regular rate and rhythm Gastrointestinal: non-tender, soft Musculoskeletal: nl extremities to inspection Extremities: normal pulses Neurological: other Results Result Diagram: 01/11/17 0612 01/11/17 0612 Results 24 hrs Laboratory Tests Test 01/10/17 13:00 01/10/17 14:33 01/11/17 06:12 Thyroid Stimulating Hormone (TSH) 4.310 Free Thyroxine 1.27 White Blood Count 7.4 Red Blood Count 4.93 Hemoglobin 14.5 Hematocrit 43.3 Mean Corpuscular Volume 87.8 Mean Corpuscular Hemoglobin 29.4 Mean Corpuscular Hemoglobin Concent 33.5 Red Cell Distribution Width 12.3 Platelet Count 317 Mean Platelet Volume 9.3 Neutrophils % 58.9 Lymphocytes % 26.9 Monocytes % 9.0 Eosinophils % 3.5 Basophils % 0.7 Nucleated Red Blood Cells % 0.0 Neutrophils # 4.3 Lymphocytes # 2.0 Monocytes # 0.7 Eosinophils # 0.3 Basophils # 0.1 Nucleated Red Blood Cells # 0.0 Sodium Level 140 Potassium Level 3.7 Chloride Level 100 Carbon Dioxide Level 32 H Anion Gap 12 Blood Urea Nitrogen 14 Creatinine 0.55 Glucose Level 116 Calcium Level 9.2 Medications Medications Current Medications Acetaminophen (Tylenol Tab) 650 mg BID PRN PO PAIN AND OR ELEVATED TEMP Last administered on 01/10/17 14:08; Admin Dose 650 MG; Start 01/08/17 at 22:30 Amlodipine Besylate (Norvasc) 10 mg DAILY PO Last administered on 01/11/17 08: 18; Admin Dose 10 MG; Start 01/09/17 at 09:00 Atorvastatin Calcium (Lipitor) 10 mg QHS PO Last administered on 01/10/17 20: 06; Admin Dose 10 MG; Start 01/09/17 at 21:00 Sertraline HCl (Zoloft) 25 mg DAILY PO Last administered on 01/11/17 08:17; Admin Dose 25 MG; Start 01/09/17 at 09:00 Tramadol HCl (Ultram) 50 mg Q12H PRN PO PAIN 1-01/13 Last administered on 22:22; Admin Dose 50 MG; Start 01/08/17 at 22:30 Ergocalciferol (Drisdol) 50,000 unit Tu@09 PO ; Start 01/13/17 at 09:00 Rivastigmine Tartrate 1 patch 1 patch Q24H TRANSDERM Last administered on 11:15; Admin Dose 1 PATCH; Start 01/09/17 at 10:15 Levofloxacin/ Dextrose (Levaquin 250 Mg/ D5W 50 ml (Pmx)) 50 ml @ 50 mls/hr Q24H IVPB Last administered on 01/10/17 14:08; Admin Dose 50 MLS/HR; Start at 14:00 Famotidine (Pepcid) 20 mg DAILY PO Last administered on 01/11/17 08:17; Admin Dose 20 MG; Start 01/09/17 at 13:00 Enoxaparin Sodium (Lovenox) 30 mg DAILY SC Last administered on 01/11/17 08:20 ; Admin Dose 30 MG; Start 01/09/17 at 13:00 Potassium Chloride (Klor-Con 10) 10 meq DAILY PO Last administered on 08:18; Admin Dose 10 MEQ; Start 01/09/17 at 16:30 Isosorbide Dinitrate (Isordil) 10 mg TID PO Last administered on 01/11/17 12: 13; Admin Dose 10 MG; Start 01/09/17 at 21:00 Docusate Sodium (Colace Liquid Cup) 100 mg BID PO Last administered on 08:18; Admin Dose 100 MG; Start 01/10/17 at 09:00 Valproate Sodium (Depakene Liquid Cup) 250 mg TID PO Last administered on 12:13; Admin Dose 250 MG; Start 01/10/17 at 09:00 TRAVIS MARTINS Jan 11, 2017 12:34
[2017-01-11 14:00] VITALS: BP 139/74; RESP 20
[2017-01-11] MEDS: LEVOFLOXACIN 250MG/D5W (PMX) 50 ML IVPB SCH (15:00)
--- NOTE | 2017-01-11 16:57 | CONS ---
Date/Time of Note Date/Time of Note DATE: 01/11/17 TIME: 16:56 Assessment/Plan Assessment/Plan Additional Assessment/Plan Congestive heart failure Hypertension Dyslipidemia Hypothyroidism Anxiety Heart failure clinically compensated Continue Diurese with Lasix Continue Norvasc Continue Imdur Continue Lipitor Continue GI and DVT Prophylaxis Consultation Date/Type/Reason Admit Date/Time Jan 11, 2017 at 02:22 Initial Consult Date Exam/Review of Systems Vital Signs Vitals Vital Signs Date Time Temp Pulse Resp B/P Pulse Ox O2 Delivery O2 Flow Rate FiO2 01/11/17 08:00 97.4 76 18 141/68 97 01/08/17 20:10 Room Air Intake and Output 01/10/17 01/10/17 01/11/17 15:00 23:00 07:00 Intake Total 50 ml 740 ml 0 ml Balance 50 ml 740 ml 0 ml Exam Head: atraumatic, normocephalic Neck: non-tender, supple Respiratory: clear to auscultation Cardiovascular: regular rate and rhythm Gastrointestinal: nl liver, spleen, non-tender, soft Extremities: normal pulses Results Result Diagram: 01/11/17 0612 01/11/17 0612 Results 24 hrs Laboratory Tests Test 01/11/17 06:12 White Blood Count 7.4 Red Blood Count 4.93 Hemoglobin 14.5 Hematocrit 43.3 Mean Corpuscular Volume 87.8 Mean Corpuscular Hemoglobin 29.4 Mean Corpuscular Hemoglobin Concent 33.5 Red Cell Distribution Width 12.3 Platelet Count 317 Mean Platelet Volume 9.3 Neutrophils % 58.9 Lymphocytes % 26.9 Monocytes % 9.0 Eosinophils % 3.5 Basophils % 0.7 Nucleated Red Blood Cells % 0.0 Neutrophils # 4.3 Lymphocytes # 2.0 Monocytes # 0.7 Eosinophils # 0.3 Basophils # 0.1 Nucleated Red Blood Cells # 0.0 Sodium Level 140 Potassium Level 3.7 Chloride Level 100 Carbon Dioxide Level 32 H Anion Gap 12 Blood Urea Nitrogen 14 Creatinine 0.55 Glucose Level 116 Calcium Level 9.2 Medications Medications Current Medications Acetaminophen (Tylenol Tab) 650 mg BID PRN PO PAIN AND OR ELEVATED TEMP Last administered on 01/10/17 14:08; Admin Dose 650 MG; Start 01/08/17 at 22:30 Amlodipine Besylate (Norvasc) 10 mg DAILY PO Last administered on 01/11/17 08: 18; Admin Dose 10 MG; Start 01/09/17 at 09:00 Atorvastatin Calcium (Lipitor) 10 mg QHS PO Last administered on 01/10/17 20: 06; Admin Dose 10 MG; Start 01/09/17 at 21:00 Sertraline HCl (Zoloft) 25 mg DAILY PO Last administered on 01/11/17 08:17; Admin Dose 25 MG; Start 01/09/17 at 09:00 Tramadol HCl (Ultram) 50 mg Q12H PRN PO PAIN -01/13 Last administered on 22:22; Admin Dose 50 MG; Start 01/08/17 at 22:30 Ergocalciferol (Drisdol) 50,000 unit Tu@09 PO ; Start 01/13/17 at 09:00 Rivastigmine Tartrate 1 patch 1 patch Q24H TRANSDERM Last administered on 11:15; Admin Dose 1 PATCH; Start 01/09/17 at 10:15 Levofloxacin/ Dextrose (Levaquin 250 Mg/ D5W 50 ml (Pmx)) 50 ml @ 50 mls/hr Q24H IVPB Last administered on 01/11/17 15:00; Admin Dose 50 MLS/HR; Start at 14:00 Famotidine (Pepcid) 20 mg DAILY PO Last administered on 01/11/17 08:17; Admin Dose 20 MG; Start 01/09/17 at 13:00 Enoxaparin Sodium (Lovenox) 30 mg DAILY SC Last administered on 01/11/17 08:20 ; Admin Dose 30 MG; Start 01/09/17 at 13:00 Potassium Chloride (Klor-Con 10) 10 meq DAILY PO Last administered on 08:18; Admin Dose 10 MEQ; Start 01/09/17 at 16:30 Isosorbide Dinitrate (Isordil) 10 mg TID PO Last administered on 01/11/17 12: 13; Admin Dose 10 MG; Start 01/09/17 at 21:00 Docusate Sodium (Colace Liquid Cup) 100 mg BID PO Last administered on 08:18; Admin Dose 100 MG; Start 01/10/17 at 09:00 Valproate Sodium (Depakene Liquid Cup) 250 mg TID PO Last administered on t 12:13; Admin Dose 250 MG; Start 01/10/17 at 09:00 VAZQUEZ MARROQUIN M.D. Jan 11, 2017 16:56
[2017-01-11 20:00] VITALS: BP 131/81; RESP 18
[2017-01-11] MEDS: ATORVASTATIN 10 MG TAB PO SCH (21:58)
[2017-01-12 02:00] VITALS: BP 146/67; RESP 17
[2017-01-12] MEDS: FUROSEMIDE 20 MG INJ IV SCH ×2 (06:09→18:10)
[2017-01-12] MEDS: LEVOTHYROXINE 137 MCG TAB PO SCH (06:09)
[2017-01-12 06:34] LABS: BASOPHIL # 0.1 10^3/ul (0.0-0.1); BASOPHILS % 0.7 % (0.0-2.0); EOSINOPHILS # 0.3 10^3/ul (0.0-0.5); EOSINOPHILS % 4.4 % (0.0-7.0); HEMATOCRIT 41.8 % (37.0-47.0); HEMOGLOBIN 13.9 g/dl (12.0-16.0); LYMPHOCYTES # 2.3 10^3/ul (0.8-2.9); LYMPHOCYTES % 33.8 % (15.0-51.0); MEAN CORPUSCULAR HEMOGLOBIN 29.7 pg (29.0-33.0); MEAN CORPUSCULAR HGB CONC 33.3 g/dl (32.0-37.0); MEAN CORPUSCULAR VOLUME 89.3 fl (82.0-101.0); MEAN PLATELET VOLUME 9.4 fl (7.4-10.4); MONOCYTE # 0.7 10^3/ul (0.3-0.9); MONOCYTES % 10.2 % (0.0-11.0); NEUTROPHIL # 3.4 10^3/ul (1.6-7.5); NEUTROPHILS % 49.7 % (39.0-77.0); PLATELET COUNT 298 10^3/UL (140-415); RED BLOOD COUNT 4.68 10^6/ul (4.20-5.40); RED CELL DISTRIBUTION WIDTH 12.3 % (11.5-14.5); WHITE BLOOD COUNT 6.9 10^3/ul (4.8-10.8)
--- NOTE | 2017-01-12 06:57 | CONS ---
DATE OF ADMISSION: 01/11/2017 DATE OF CONSULTATION: 01/09/2017 CARDIOLOGY CONSULTATION REASON FOR CONSULTATION: Shortness of breath, assess for congestive heart failure and chest pain, a ssess for acute coronary syndrome. REQUESTING PHYSICIAN: Dr. Franky Mckinney HISTORY OF PRESENT ILLNESS: Ms. Gomes is an 86-year-old female with a history of dementia, ashlee estive heart failure, hypertension, hypothyroidism, dyslipidemia, prior open reduction and internal fixation of the left hip in 2010, right hip in 2013, status post appendectomy, who initially present ed with complaints of shortness of breath, associated weight gain and episodes of substernal chest p ain. The patient's chest pain is poorly described, occurring at rest. Upon arrival in the emergenc y department, temperature 97.8, blood pressure 137/70, pulse 78, respirations 16, saturating 95%. T he patient's labs revealed a white blood cell count of 7.0, hemoglobin 14.9, platelet count of 320. Sodium 141, potassium 4.3, creatinine of 0.56, BUN 11. Troponin negative. BNP is elevated at 486. TSH mildly elevated at 4.91, LDL 108, HDL 53. The patient's UA was positive. Patient underwent a chest x-ray revealing hypoventilatory examination, borderline prominent heart size, prominent inter stitial markings likely reflecting chronic lung change and a venous ultrasound that revealed no sono graphic evidence for DVT. The patient's electrocardiogram revealed sinus rhythm at a rate of 72 wit h normal axis, inferior Q's and poor R-wave progression concerning for prior anterior anterolateral FL. The patient has been admitted to the floor and since admit to the floor, has had relatively sta ble vital signs. The patient's troponin negative x1. The patient has been placed on daily La six diuresis with Norvasc for control of blood pressure. ALLERGIES: PENICILLIN. SOCIAL HISTORY: No tobacco, ETOH or illicit drug use. FAMILY HISTORY: No history of sudden cardiac or early CAD. REVIEW OF SYSTEMS: As above in HPI. CONSTITUTIONAL: No fevers, chills. PULMONARY: Shortness of breath. CARDIOVASCULAR: Chest pain. GASTROINTESTINAL: No vomiting. GENITOURINARY: No hematuria. MUSCULOSKELETAL: Degenerative joint disease. PSYCHIATRIC: medications. NEUROLOGIC: No documented history of CVA. ENDOCRINE: Hypothyroidism. PHYSICAL EXAMINATION: VITAL SIGNS: Temperature of 96.7, blood pressure 113/54, pulse 82, respirations 17, saturating 96%. GENERAL: The patient is alert, awake, noncommunicative. NECK: JVP approximately 9 cm of water. CHEST: Upper airway chest rhonchorous sounds with mildly decreased breath sounds at the bases bilat erally. HEART: Regular rate and rhythm. Normal S1, increased S2, I/ systolic murmur, nondisplaced PMI. ABDOMEN: Positive bowel sounds, soft. EXTREMITIES: 1+ edema bilaterally, 1+ pulses bilaterally, posterior tibial, dorsalis pedis. LABORATORY DATA: Most recently from today, sodium 140, potassium 3.8, creatinine 0.47, BUN of 9. W [place] blood cell count 7.3, hemoglobin 13.9, platelet count 300. IMAGING STUDIES: As above in HPI. No further imaging studies for my review at this time. ECG: As above in HPI. No further electrocardiograms for my review at this time. IMPRESSION: 1. Chest pain, assess for acute coronary syndrome, somewhat poorly described. 2. Abnormal electrocardiogram with inferior Q's and poor R-wave progression across the anterior juwan ds and anterolateral Q's. Assess for acute coronary syndrome, concerning for history of prior myoca rdial infarction. 3. Shortness of breath with increased BNP, assess for congestive heart failure. 4. Dyslipidemia. 5. Urinary tract infection. 6. Hypothyroidism. 7. Psychiatric disorder. RECOMMENDATIONS: 1. At this time, would complete a rule out for myocardial infarction to ensure that the patient's E KG abnormalities are chronic in nature and not due to any recent acute coronary syndrome and that th e chest pain was not indicative of an acute coronary syndrome such as acute myocardial infarction. 2. Continue the patient's baseline Norvasc at this time, and we will give patient low dose Isordil as well given chest pains. 3. Check a 2D echocardiogram to further assess patient's ejection fraction, wall motion, rule out a ny major valvular abnormalities. 4. Continue patient's gentle Lasix diuresis, following strict I's and O's and creatinine to grade d iuresis closely. 5. Continue the patient's antibiotics and follow up all culture data including urine culture, and c ontinue the patient's bronchodilator therapy. 6. Continue the patient's statin and adjust it according to a fasting lipid panel and that should b e checked. Thank you for allowing me to take part in the care of this patient. I will continue to follow along very closely with you with further recommendations to be made as [facility] Dictated By: RAMILA LYNCH/REN Conf#: [id number] DID#: [id number] CC: FRANKY MCKINNEY MD;*EndCC*
[2017-01-12 07:14] LABS: CALCIUM 9.3 mg/dl (8.4-10.2); CREATININE 0.65 mg/dl (0.44-1.00); POTASSIUM 3.6 mmol/L (3.5-5.1)
[2017-01-12 07:41] VITALS: BP 131/65; RESP 17
[2017-01-12] MEDS: DOCUSATE SODIUM 10 MG/ML (10ML CUP) PO SCH ×2 (09:10→20:42)
[2017-01-12] MEDS: POTASSIUM CHLORIDE (SR) 10 MEQ TAB PO SCH (09:11)
[2017-01-12] MEDS: VALPROIC ACID LIQUID CUP 250 MG/5 ML CUP PO SCH ×3 (09:11→20:42)
[2017-01-12] MEDS: ISOSORBIDE DINITRATE 10 MG TAB PO SCH ×3 (09:12→20:41)
[2017-01-12] MEDS: AMLODIPINE 10 MG TAB PO SCH (09:12)
[2017-01-12] MEDS: FAMOTIDINE 20 MG TAB PO SCH (09:12)
[2017-01-12] MEDS: SERTRALINE 50 MG TAB PO SCH (09:12)
[2017-01-12] MEDS: ENOXAPARIN 30 MG/0.3 ML SYG SC SCH (09:17)
[2017-01-12] MEDS: RIVASTIGMINE 4.6MG/24H PATCH TRANSDERM SCH (11:19)
[2017-01-12 13:12] VITALS: BP 119/59; PULSE 78
[2017-01-12] MEDS: LEVOFLOXACIN 250MG/D5W (PMX) 50 ML IVPB SCH (13:14)
[2017-01-12 14:27] VITALS: BP 122/61; RESP 19
[2017-01-12 18:09] VITALS: BP 126/66; PULSE 81
--- NOTE | 2017-01-12 18:28 | PN ---
Date/Time of Note Date/Time of Note DATE: 01/12/17 TIME: 18:20 Assessment/Plan VTE Prophylaxis VTE Prophylaxis Intervention: SCD's Lines/Catheters [facility] Saline Lock Urinary Cath still in place: No Assessment/Plan Chief Complaint/Hosp Course Patient remains hemodynamically stable in no distress Problems: Assessment/Plan - Possible congestive heart failure exacerbation. Results pending for 2D echo. Dr. Dyer is following in cardiology consultation. - Rule out acute coronary syndrome. Cardiac enzymes are negative 3. - Shortness of breath secondary to congestive heart failure exacerbation. - Hypertension, continue Norvasc - UTI per UA. Continue Levaquin. - Hypothyroidism. Continue current dose of Synthroid. - Alzheimer dementia. Continue Exelon patch. Further recommendations based on clinical course. Plan of care discussed with Dr. Mckinney. Exam/Review of Systems Vital Signs Vitals Vital Signs Date Time Temp Pulse Resp B/P Pulse Ox O2 Delivery O2 Flow Rate FiO2 01/12/17 18:09 81 126/66 01/12/17 14:27 98.5 19 95 01/08/17 20:10 Room Air Intake and Output 01/11/17 01/11/17 01/12/17 15:00 23:00 07:00 Intake Total 175 ml 0 ml Balance 175 ml 0 ml Exam Constitutional: non-verbal Head: normocephalic Neck: supple Respiratory: diminished breath sounds Cardiovascular: irregular rhythm, murmurs/extra sounds Gastrointestinal: non-tender, soft Extremities: edema, other (Contracted) Results Result Diagram: 01/12/17 0548 01/12/17 0548 Results 24 hrs Laboratory Tests Test 01/12/17 05:48 White Blood Count 6.9 Red Blood Count 4.68 Hemoglobin 13.9 Hematocrit 41.8 Mean Corpuscular Volume 89.3 Mean Corpuscular Hemoglobin 29.7 Mean Corpuscular Hemoglobin Concent 33.3 Red Cell Distribution Width 12.3 Platelet Count 298 Mean Platelet Volume 9.4 Neutrophils % 49.7 Lymphocytes % 33.8 Monocytes % 10.2 Eosinophils % 4.4 Basophils % 0.7 Nucleated Red Blood Cells % 0.0 Neutrophils # 3.4 Lymphocytes # 2.3 Monocytes # 0.7 Eosinophils # 0.3 Basophils # 0.1 Nucleated Red Blood Cells # 0.0 Sodium Level 138 Potassium Level 3.6 Chloride Level 99 Carbon Dioxide Level 34 H Anion Gap 9 Blood Urea Nitrogen 22 H Creatinine 0.65 Glucose Level 95 Calcium Level 9.3 Medications Medications Current Medications Acetaminophen (Tylenol Tab) 650 mg BID PRN PO PAIN AND OR ELEVATED TEMP Last administered on 01/10/17 14:08; Admin Dose 650 MG; Start 01/08/17 at 22:30 Amlodipine Besylate (Norvasc) 10 mg DAILY PO Last administered on 01/12/17 09: 12; Admin Dose 10 MG; Start 01/09/17 at 09:00 Atorvastatin Calcium (Lipitor) 10 mg QHS PO Last administered on 01/11/17 21: 58; Admin Dose 10 MG; Start 01/09/17 at 21:00 Sertraline HCl (Zoloft) 25 mg DAILY PO Last administered on 01/12/17 09:12; Admin Dose 25 MG; Start 01/09/17 at 09:00 Tramadol HCl (Ultram) 50 mg Q12H PRN PO PAIN -01/13 Last administered on 22:22; Admin Dose 50 MG; Start 01/08/17 at 22:30 Ergocalciferol (Drisdol) 50,000 unit Tu@09 PO ; Start 01/13/17 at 09:00 Rivastigmine Tartrate (Exelon 4.6 Mg/ 24 Hr Patch) 1 patch Q24H TRANSDERM Last administered on 01/12/17 11:19; Admin Dose 1 PATCH; Start 01/09/17 at 10:15 Famotidine (Pepcid) 20 mg DAILY PO Last administered on 01/12/17 09:12; Admin Dose 20 MG; Start 01/09/17 at 13:00 Enoxaparin Sodium (Lovenox) 30 mg DAILY SC Last administered on 01/12/17 09:17 ; Admin Dose 30 MG; Start 01/09/17 at 13:00 Potassium Chloride (Klor-Con 10) 10 meq DAILY PO Last administered on 09:11; Admin Dose 10 MEQ; Start 01/09/17 at 16:30 Isosorbide Dinitrate (Isordil) 10 mg TID PO Last administered on 01/12/17 13: 14; Admin Dose 10 MG; Start 01/09/17 at 21:00 Docusate Sodium (Colace Liquid Cup) 100 mg BID PO Last administered on 09:10; Admin Dose 100 MG; Start 01/10/17 at 09:00 Valproate Sodium (Depakene Liquid Cup) 250 mg TID PO Last administered on 13:14; Admin Dose 250 MG; Start 01/10/17 at 09:00 Levofloxacin (Levaquin) 250 mg DAILY@06 PO ; Start 01/13/17 at 06:00 ALO GUERERRO Jan 12, 2017 18:28
--- NOTE | 2017-01-12 19:12 | CONS ---
Date/Time of Note Date/Time of Note DATE: 01/12/17 TIME: 19:05 Assessment/Plan Assessment/Plan Chief Complaint/Hosp Course IMPRESSION: 1. Chest pain, assess for acute coronary syndrome, somewhat poorly described.- negative trop x 3/NL EF 60-65% by echo this admit 2. Abnormal electrocardiogram with inferior Q's and poor R-wave progression across the anterior leads and anterolateral Q's. Assess for acute coronary syndrome, concerning for history of prior myocardial infarction. 3. Shortness of breath with increased BNP, assess for congestive heart failure. 4. Dyslipidemia. 5. Urinary tract infection. 6. Hypothyroidism. 7. Psychiatric disorder. REcc: -Continue norvasc/isordil -Continue statin -Continue lasix but change to PO and follow volume sttatus -Continue abx's and f/u cx data -Continue bronchodilators Problems: Consultation Date/Type/Reason Admit Date/Time Jan 11, 2017 at 02:22 Initial Consult Date 01/11/2017 Type of Consultation: Cardiology Reason for Consultation Chest pain Referring Provider: FRANKY LEMUS MD Exam/Review of Systems Vital Signs Vitals Vital Signs Date Time Temp Pulse Resp B/P Pulse Ox O2 Delivery O2 Flow Rate FiO2 01/12/17 18:09 81 126/66 01/12/17 14:27 98.5 19 95 01/08/17 20:10 Room Air Intake and Output 01/11/17 01/11/17 01/12/17 15:00 23:00 07:00 Intake Total 175 ml 0 ml Balance 175 ml 0 ml Exam Review of Systems: CONSTITUTIONAL: No fevers, chills. PULMONARY: No sob CARDIOVASCULAR: No chest pain/palpitations GASTROINTESTINAL: No nausea/vomiting. GENITOURINARY: No hematuria/dysuria. MUSCULOSKELETAL: No myagias/arthalgias. PSYCHIATRIC: The patient denies depression. NEUROLOGIC: lethargic Constitutional: alert Psych: no complaints Head: normocephalic ENMT: mucosa pink and moist Neck: supple Respiratory: diminished breath sounds (at bases/B) Cardiovascular: regular rate and rhythm Gastrointestinal: non-tender, soft Musculoskeletal: muscle tone (normal) Extremities: edema (none) Neurological: lethargic, other (No focal deficits) Results Result Diagram: 01/12/1748 01/12/17547 Results 24 hrs Laboratory Tests Test 01/12/17 05:48 White Blood Count 6.9 Red Blood Count 4.68 Hemoglobin 13.9 Hematocrit 41.8 Mean Corpuscular Volume 89.3 Mean Corpuscular Hemoglobin 29.7 Mean Corpuscular Hemoglobin Concent 33.3 Red Cell Distribution Width 12.3 Platelet Count 298 Mean Platelet Volume 9.4 Neutrophils % 49.7 Lymphocytes % 33.8 Monocytes % 10.2 Eosinophils % 4.4 Basophils % 0.7 Nucleated Red Blood Cells % 0.0 Neutrophils # 3.4 Lymphocytes # 2.3 Monocytes # 0.7 Eosinophils # 0.3 Basophils # 0.1 Nucleated Red Blood Cells # 0.0 Sodium Level 138 Potassium Level 3.6 Chloride Level 99 Carbon Dioxide Level 34 H Anion Gap 9 Blood Urea Nitrogen 22 H Creatinine 0.65 Glucose Level 95 Calcium Level 9.3 Medications Medications Current Medications Acetaminophen (Tylenol Tab) 650 mg BID PRN PO PAIN AND OR ELEVATED TEMP Last administered on 01/10/17 14:08; Admin Dose 650 MG; Start 01/08/17 at 22:30 Amlodipine Besylate (Norvasc) 10 mg DAILY PO Last administered on 01/12/17 09: 12; Admin Dose 10 MG; Start 01/09/17 at 09:00 Atorvastatin Calcium (Lipitor) 10 mg QHS PO Last administered on 01/11/17 21: 58; Admin Dose 10 MG; Start 01/09/17 at 21:00 Sertraline HCl (Zoloft) 25 mg DAILY PO Last administered on 01/12/17 09:12; Admin Dose 25 MG; Start 01/09/17 at 09:00 Tramadol HCl (Ultram) 50 mg Q12H PRN PO PAIN -01/13 Last administered on 22:22; Admin Dose 50 MG; Start 01/08/17 at 22:30 Ergocalciferol (Drisdol) 50,000 unit Tu@09 PO ; Start 01/13/17 at 09:00 Rivastigmine Tartrate (Exelon 4.6 Mg/ 24 Hr Patch) 1 patch Q24H TRANSDERM Last administered on 01/12/17 11:19; Admin Dose 1 PATCH; Start 01/09/17 at 10:15 Famotidine (Pepcid) 20 mg DAILY PO Last administered on 01/12/17 09:12; Admin Dose 20 MG; Start 01/09/17 at 13:00 Enoxaparin Sodium (Lovenox) 30 mg DAILY SC Last administered on 01/12/17 09:17 ; Admin Dose 30 MG; Start 01/09/17 at 13:00 Potassium Chloride (Klor-Con 10) 10 meq DAILY PO Last administered on 09:11; Admin Dose 10 MEQ; Start 01/09/17 at 16:30 Isosorbide Dinitrate (Isordil) 10 mg TID PO Last administered on 01/12/17 13: 14; Admin Dose 10 MG; Start 01/09/17 at 21:00 Docusate Sodium (Colace Liquid Cup) 100 mg BID PO Last administered on 09:10; Admin Dose 100 MG; Start 01/10/17 at 09:00 Valproate Sodium (Depakene Liquid Cup) 250 mg TID PO Last administered on 13:14; Admin Dose 250 MG; Start 01/10/17 at 09:00 Levofloxacin (Levaquin) 250 mg DAILY@06 PO ; Start 01/13/17 at 06:00 RAMILA DIAZ Jan 12, 2017 19:12
[2017-01-12] MEDS: ATORVASTATIN 10 MG TAB PO SCH (20:42)
[2017-01-12 20:50] VITALS: BP 133/67; RESP 18
[2017-01-13] VITALS (7 sets, daily range): BP systolic 108–142; BP diastolic 59–76; PULSE 62–76; RESP 18–20
[2017-01-13] MEDS: LEVOFLOXACIN 250 MG TAB PO SCH (06:19)
[2017-01-13] MEDS: FUROSEMIDE 20 MG TAB PO SCH ×2 (06:19→17:53)
[2017-01-13] MEDS: LEVOTHYROXINE 137 MCG TAB PO SCH (06:26)
[2017-01-13 06:54] LABS: CALCIUM 9.4 mg/dl (8.4-10.2); CREATININE 0.7 mg/dl (0.44-1.00); POTASSIUM 3.4 mmol/L (3.5-5.1)
[2017-01-13] MEDS: DOCUSATE SODIUM 10 MG/ML (10ML CUP) PO SCH ×2 (08:30→20:41)
[2017-01-13] MEDS: ERGOCALCIFEROL 50,000 UNIT CAP PO SCH ×2 (08:31→08:45)
[2017-01-13] MEDS: VALPROIC ACID LIQUID CUP 250 MG/5 ML CUP PO SCH ×3 (08:31→20:41)
[2017-01-13] MEDS: SERTRALINE 50 MG TAB PO SCH (08:31)
[2017-01-13] MEDS: POTASSIUM CHLORIDE (SR) 10 MEQ TAB PO SCH (08:31)
[2017-01-13] MEDS: FAMOTIDINE 20 MG TAB PO SCH (08:32)
[2017-01-13] MEDS: AMLODIPINE 10 MG TAB PO SCH (08:33)
--- NOTE | 2017-01-13 09:49 | CONS ---
Date/Time of Note Date/Time of Note DATE: 01/13/17 TIME: 09:48 Assessment/Plan Assessment/Plan Additional Assessment/Plan 1. Chest pain, assess for acute coronary syndrome, somewhat poorly described.- negative trop x 3/NL EF 60-65% by echo this admit - NO CP now, off tele, med Rx now 2. Abnormal electrocardiogram with inferior Q's and poor R-wave progression across the anterior leads and anterolateral Q's. Assess for acute coronary syndrome, concerning for history of prior myocardial infarction - r/o WI, EF 60 % 3. Shortness of breath with increased BNP, assess for congestive heart failure - con't to remove fluid as tolerated. 4. Dyslipidemia. 5. Urinary tract infection- on a nti-Bx, treated now 6. Hypothyroidism. 7. Psychiatric disorder. Consultation Date/Type/Reason Admit Date/Time Jan 11, 2017 at 02:22 Initial Consult Date Type of Consultation: Cardiology Referring Provider: FRANKY LEMUS MD 24 HR Interval Summary Free Text/Dictation NO acute events - BP stable - will monitor clinically. ROS: No fever, no chills, no nausea, no vomiting, no diarrhea/constipation No recent weight changes No chest pain, no PND, no orthopnea No dizziness, blurred vision No thirst, no heat or cold intolerance Exam/Review of Systems Vital Signs Vitals Vital Signs Date Time Temp Pulse Resp B/P Pulse Ox O2 Delivery O2 Flow Rate FiO2 01/13/17 06:21 62 142/68 01/13/17 03:02 97.9 19 94 Intake and Output 01/12/17 01/12/17 01/13/17 15:00 23:00 07:00 Intake Total 50 ml 240 ml 120 ml Balance 50 ml 240 ml 120 ml Exam General: WN/WD/NAD, AOx 0-1 comfortable HEENT: Unicetric/atraumatic/EOMI (does not follow commands) NECK: JVD elevated, no thyromegaly Lymph: no lymphadenopathy HEART: regular with no S3, II/ systolic murmur at apex LUNGS: Coarse sounds ABD: soft, NT, ND, +BS : Intact Neuro: non focal SKIN: chronic changes EXT: trace edema Results Result Diagram: 01/12/17 0548 01/13/17 0535 Results 24 hrs Laboratory Tests Test 01/13/17 05:35 Sodium Level 139 Potassium Level 3.4 L Chloride Level 97 Carbon Dioxide Level 36 H Anion Gap 9 Blood Urea Nitrogen 24 H Creatinine 0.70 Glucose Level 93 Calcium Level 9.4 Medications Medications Current Medications Acetaminophen (Tylenol Tab) 650 mg BID PRN PO PAIN AND OR ELEVATED TEMP Last administered on 01/10/17 14:08; Admin Dose 650 MG; Start 01/08/17 at 22:30 Amlodipine Besylate (Norvasc) 10 mg DAILY PO Last administered on 01/13/17 08 :33; Admin Dose 10 MG; Start 01/09/17 at 09:00 Atorvastatin Calcium (Lipitor) 10 mg QHS PO Last administered on 01/12/17 20: 42; Admin Dose 10 MG; Start 01/09/17 at 21:00 Sertraline HCl (Zoloft) 25 mg DAILY PO Last administered on 01/13/17 08:31; Admin Dose 25 MG; Start 01/09/17 at 09:00 Tramadol HCl (Ultram) 50 mg Q12H PRN PO PAIN Last administered on 22:22; Admin Dose 50 MG; Start 01/08/17 at 22:30 Ergocalciferol (Drisdol) 50,000 unit Tu@09 PO ; Start 01/13/17 at 09:00 Rivastigmine Tartrate (Exelon 4.6 Mg/ 24 Hr Patch) 1 patch Q24H TRANSDERM Last administered on 01/12/17 11:19; Admin Dose 1 PATCH; Start 01/09/17 at 10:15 Famotidine (Pepcid) 20 mg DAILY PO Last administered on 01/13/17 08:32; Admin Dose 20 MG; Start 01/09/17 at 13:00 Enoxaparin Sodium (Lovenox) 30 mg DAILY SC Last administered on 01/12/17 09:17 ; Admin Dose 30 MG; Start 01/09/17 at 13:00 Potassium Chloride (Klor-Con 10) 10 meq DAILY PO Last administered on 08:31; Admin Dose 10 MEQ; Start 01/09/17 at 16:30 Isosorbide Dinitrate (Isordil) 10 mg TID PO Last administered on 01/12/17 20: 41; Admin Dose 10 MG; Start 01/09/17 at 21:00 Docusate Sodium (Colace Liquid Cup) 100 mg BID PO Last administered on 08:30; Admin Dose 100 MG; Start 01/10/17 at 09:00 Valproate Sodium (Depakene Liquid Cup) 250 mg TID PO Last administered on 01/13 08:31; Admin Dose 250 MG; Start 01/10/17 at 09:00 Levofloxacin (Levaquin) 250 mg DAILY@06 PO Last administered on 01/13/17 06: 19; Admin Dose 250 MG; Start 01/13/17 at 06:00 KEELY CASSIDY MD Jan 13, 2017 09:49
[2017-01-13] MEDS: ISOSORBIDE DINITRATE 10 MG TAB PO SCH ×3 (09:55→20:41)
[2017-01-13] MEDS: RIVASTIGMINE 4.6MG/24H PATCH TRANSDERM SCH (09:56)
[2017-01-13] MEDS: ENOXAPARIN 30 MG/0.3 ML SYG SC SCH (09:56)
--- NOTE | 2017-01-13 18:00 | PN ---
Date/Time of Note Date/Time of Note DATE: 01/13/17 TIME: 17:57 Assessment/Plan VTE Prophylaxis VTE Prophylaxis Intervention: SCD's Lines/Catheters IV Catheter Type (from Nrs): Saline Lock Central line still needed: Yes Urinary Cath still in place: No Assessment/Plan Chief Complaint/Hosp Course Hypokalemia potassium replaced, continue to monitor electrolytes Assessment/Plan - Acute on chronic diastolic congestive heart failure. Continue Lasix. Dr. Dyer is following in cardiology consultation. - Rule out acute coronary syndrome. Cardiac enzymes are negative 3. - Shortness of breath secondary to congestive heart failure exacerbation. - Hypertension, continue Norvasc - UTI per UA. Continue Levaquin. - Hypothyroidism. Continue current dose of Synthroid. - Alzheimer dementia. Continue Exelon patch. Further recommendations based on clinical course. Plan of care discussed with Dr. Mckinney. Problems: Exam/Review of Systems Vital Signs Vitals Vital Signs Date Time Temp Pulse Resp B/P Pulse Ox O2 Delivery O2 Flow Rate FiO2 01/13/17 17:30 76 124/63 01/13/17 14:00 98.6 18 96 Intake and Output 01/12/17 01/12/17 01/13/17 15:00 23:00 07:00 Intake Total 50 ml 240 ml 120 ml Balance 50 ml 240 ml 120 ml Exam Constitutional: non-verbal Head: normocephalic Neck: supple Respiratory: diminished breath sounds Cardiovascular: irregular rhythm, murmurs/extra sounds Gastrointestinal: non-tender, soft Extremities: edema, other (Contracted) Results Result Diagram: 01/12/17 0548 01/13/17 0535 Results 24 hrs Laboratory Tests Test 01/13/17 05:35 Sodium Level 139 Potassium Level 3.4 L Chloride Level 97 Carbon Dioxide Level 36 H Anion Gap 9 Blood Urea Nitrogen 24 H Creatinine 0.70 Glucose Level 93 Calcium Level 9.4 Medications Medications Current Medications Acetaminophen (Tylenol Tab) 650 mg BID PRN PO PAIN AND OR ELEVATED TEMP Last administered on 01/10/17 14:08; Admin Dose 650 MG; Start 01/08/17 at 22:30 Amlodipine Besylate (Norvasc) 10 mg DAILY PO Last administered on 01/13/17 08 :33; Admin Dose 10 MG; Start 01/09/17 at 09:00 Atorvastatin Calcium (Lipitor) 10 mg QHS PO Last administered on 01/12/17 20: 42; Admin Dose 10 MG; Start 01/09/17 at 21:00 Sertraline HCl (Zoloft) 25 mg DAILY PO Last administered on 01/13/17 08:31; Admin Dose 25 MG; Start 01/09/17 at 09:00 Tramadol HCl (Ultram) 50 mg Q12H PRN PO PAIN -01/13 Last administered on 22:22; Admin Dose 50 MG; Start 01/08/17 at 22:30 Rivastigmine Tartrate (Exelon 4.6 Mg/ 24 Hr Patch) 1 patch Q24H TRANSDERM Last administered on 01/13/17 09:56; Admin Dose 1 PATCH; Start 01/09/17 at 10:15 Famotidine (Pepcid) 20 mg DAILY PO Last administered on 01/13/17 08:32; Admin Dose 20 MG; Start 01/09/17 at 13:00 Enoxaparin Sodium (Lovenox) 30 mg DAILY SC Last administered on 01/13/17 09: 56; Admin Dose 30 MG; Start 01/09/17 at 13:00 Isosorbide Dinitrate (Isordil) 10 mg TID PO Last administered on 01/13/17 12: 54; Admin Dose 10 MG; Start 01/09/17 at 21:00 Docusate Sodium (Colace Liquid Cup) 100 mg BID PO Last administered on 08:30; Admin Dose 100 MG; Start 01/10/17 at 09:00 Valproate Sodium (Depakene Liquid Cup) 250 mg TID PO Last administered on 01/13 12:53; Admin Dose 250 MG; Start 01/10/17 at 09:00 Levofloxacin (Levaquin) 250 mg DAILY@06 PO Last administered on 01/13/17 06: 19; Admin Dose 250 MG; Start 01/13/17 at 06:00 Potassium Chloride (Potassium Chloride Pwd/Soln) 20 meq DAILY PO ; Start at 09:00 Cholecalciferol (Vitamin D) 1,000 unit DAILY PO ; Start 01/14/17 at 09:00 ALO GUERRERO Jan 13, 2017 18:00
[2017-01-13] MEDS: ATORVASTATIN 10 MG TAB PO SCH (20:41)
[2017-01-14 02:57] VITALS: BP 122/66; RESP 22
[2017-01-14 06:30] VITALS: BP 121/58; PULSE 66
[2017-01-14] MEDS: LEVOFLOXACIN 250 MG TAB PO SCH (06:32)
[2017-01-14] MEDS: LEVOTHYROXINE 137 MCG TAB PO SCH (06:33)
[2017-01-14] MEDS: FUROSEMIDE 20 MG TAB PO SCH ×2 (06:33→17:44)
[2017-01-14 07:09] LABS: CALCIUM 9.2 mg/dl (8.4-10.2); CREATININE 0.6 mg/dl (0.44-1.00); POTASSIUM 3.3 mmol/L (3.5-5.1)
[2017-01-14 08:00] VITALS: BP 124/63; RESP 20
[2017-01-14] MEDS: SERTRALINE 50 MG TAB PO SCH (09:51)
[2017-01-14] MEDS: AMLODIPINE 10 MG TAB PO SCH (09:51)
[2017-01-14] MEDS: CHOLECALCIFEROL 1,000 UNIT TAB PO SCH (09:51)
[2017-01-14] MEDS: ISOSORBIDE DINITRATE 10 MG TAB PO SCH ×3 (09:52→22:54)
[2017-01-14] MEDS: VALPROIC ACID LIQUID CUP 250 MG/5 ML CUP PO SCH ×3 (09:52→23:02)
[2017-01-14] MEDS: FAMOTIDINE 20 MG TAB PO SCH (09:52)
[2017-01-14] MEDS: DOCUSATE SODIUM 10 MG/ML (10ML CUP) PO SCH ×2 (09:52→22:53)
[2017-01-14] MEDS: POTASSIUM CHLORIDE 20 MEQ POWDER FOR ORAL SOLN PO SCH (09:52)
[2017-01-14] MEDS: ENOXAPARIN 30 MG/0.3 ML SYG SC SCH (10:03)
[2017-01-14] MEDS: RIVASTIGMINE 4.6MG/24H PATCH TRANSDERM SCH (12:42)
[2017-01-14 14:00] VITALS: BP 124/62; RESP 20
--- NOTE | 2017-01-14 16:55 | CONS ---
Date/Time of Note Date/Time of Note DATE: 01/14/17 TIME: 16:52 Assessment/Plan Assessment/Plan Chief Complaint/Hosp Course IMPRESSION: 1. Chest pain, assess for acute coronary syndrome, somewhat poorly described.- negative trop x 3/NL EF 60-65% by echo this admit 2. Abnormal electrocardiogram with inferior Q's and poor R-wave progression across the anterior leads and anterolateral Q's.-negative troponins/NL EF by echo 3. Shortness of breath with increased BNP, assess for congestive heart failure. 4. Dyslipidemia. 5. Urinary tract infection. 6. Hypothyroidism. 7. Psychiatric disorder. REcc: -Continue norvasc/isordil -Continue statin -Continue lasix PO and follow volume sttatus -Continue abx's and f/u cx data -Continue bronchodilators -D/C planning Problems: Consultation Date/Type/Reason Admit Date/Time Jan 11, 2017 at 02:22 Initial Consult Date 01/11/2017 Type of Consultation: Cardiology Reason for Consultation chest pain Referring Provider: FRANKY LEMUS MD Exam/Review of Systems Vital Signs Vitals Vital Signs Date Time Temp Pulse Resp B/P Pulse Ox O2 Delivery O2 Flow Rate FiO2 01/14/17 14:00 97.8 76 20 124/62 96 Intake and Output 01/13/17 01/13/17 01/14/17 15:00 23:00 07:00 Intake Total 580 ml 240 ml Balance 580 ml 240 ml Exam Review of Systems: CONSTITUTIONAL: No fevers, chills. PULMONARY: No sob CARDIOVASCULAR: No chest pain/palpitations GASTROINTESTINAL: No nausea/vomiting. GENITOURINARY: No hematuria/dysuria. MUSCULOSKELETAL: No myagias/arthalgias. PSYCHIATRIC: The patient denies depression. NEUROLOGIC: No weakness Constitutional: alert Psych: no complaints Head: normocephalic ENMT: mucosa pink and moist Neck: jvd (9 cm water), supple Respiratory: clear to auscultation Cardiovascular: regular rate and rhythm Gastrointestinal: non-tender, soft Musculoskeletal: muscle tone (normal) Extremities: edema (nonw) Neurological: lethargic, other (No focal deficits) Results Result Diagram: 01/12/17 0548 01/14/17 0553 Results 24 hrs Laboratory Tests Test 01/14/17 05:53 Sodium Level 141 Potassium Level 3.3 L Chloride Level 100 Carbon Dioxide Level 33 H Anion Gap 11 Blood Urea Nitrogen 25 H Creatinine 0.60 Glucose Level 104 Calcium Level 9.2 Medications Medications Current Medications Acetaminophen (Tylenol Tab) 650 mg BID PRN PO PAIN AND OR ELEVATED TEMP Last administered on 01/10/17 14:08; Admin Dose 650 MG; Start 01/08/17 at 22:30 Amlodipine Besylate (Norvasc) 10 mg DAILY PO Last administered on 01/14/17 09 :51; Admin Dose 10 MG; Start 01/09/17 at 09:00 Atorvastatin Calcium (Lipitor) 10 mg QHS PO Last administered on 01/13/17 20: 41; Admin Dose 10 MG; Start 01/09/17 at 21:00 Sertraline HCl (Zoloft) 25 mg DAILY PO Last administered on 01/14/17 09:51; Admin Dose 25 MG; Start 01/09/17 at 09:00 Tramadol HCl (Ultram) 50 mg Q12H PRN PO PAIN -01/13 Last administered on 22:22; Admin Dose 50 MG; Start 01/08/17 at 22:30 Rivastigmine Tartrate (Exelon 4.6 Mg/ 24 Hr Patch) 1 patch Q24H TRANSDERM Last administered on 01/14/17 12:42; Admin Dose 1 PATCH; Start 01/09/17 at 10:15 Famotidine (Pepcid) 20 mg DAILY PO Last administered on 01/14/17 09:52; Admin Dose 20 MG; Start 01/09/17 at 13:00 Enoxaparin Sodium (Lovenox) 30 mg DAILY SC Last administered on 01/14/17 10: 03; Admin Dose 30 MG; Start 01/09/17 at 13:00 Isosorbide Dinitrate (Isordil) 10 mg TID PO Last administered on 01/14/17 12: 42; Admin Dose 10 MG; Start 01/09/17 at 21:00 Docusate Sodium (Colace Liquid Cup) 100 mg BID PO Last administered on 09:52; Admin Dose 100 MG; Start 01/10/17 at 09:00 Valproate Sodium (Depakene Liquid Cup) 250 mg TID PO Last administered on 01/14 12:41; Admin Dose 250 MG; Start 01/10/17 at 09:00 Levofloxacin (Levaquin) 250 mg DAILY@06 PO Last administered on 01/14/17 06: 32; Admin Dose 250 MG; Start 01/13/17 at 06:00 Potassium Chloride (Potassium Chloride Pwd/Soln) 20 meq DAILY PO Last administered on 01/14/17 09:52; Admin Dose 20 MEQ; Start 01/14/17 at 09:00 Cholecalciferol (Vitamin D) 1,000 unit DAILY PO Last administered on 09:51; Admin Dose 1,000 UNIT; Start 01/14/17 at 09:00 RAMILA DIAZ Jan 14, 2017 16:55
--- NOTE | 2017-01-14 17:30 | PN ---
Date/Time of Note Date/Time of Note DATE: 01/14/17 TIME: 17:28 Assessment/Plan VTE Prophylaxis VTE Prophylaxis Intervention: SCD's Lines/Catheters [facility] Saline Lock Urinary Cath still in place: No Assessment/Plan Chief Complaint/Hosp Course Hypokalemia, potassium replaced. Assessment/Plan - Acute on chronic diastolic congestive heart failure. Continue Lasix. Dr. Dyer is following in cardiology consultation. - Rule out acute coronary syndrome. Cardiac enzymes are negative 3. - Shortness of breath secondary to congestive heart failure exacerbation. - Hypertension, continue Norvasc - UTI per UA. Continue Levaquin. - Hypothyroidism. Continue current dose of Synthroid. - Alzheimer dementia. Continue Exelon patch. Further recommendations based on clinical course. Plan of care discussed with Dr. Mckinney. Problems: Exam/Review of Systems Vital Signs Vitals Vital Signs Date Time Temp Pulse Resp B/P Pulse Ox O2 Delivery O2 Flow Rate FiO2 01/14/17 14:00 97.8 76 20 124/62 96 Intake and Output 01/13/17 01/13/17 01/14/17 15:00 23:00 07:00 Intake Total 580 ml 240 ml Balance 580 ml 240 ml Exam Constitutional: non-verbal Head: normocephalic Neck: supple Respiratory: diminished breath sounds Cardiovascular: irregular rhythm, murmurs/extra sounds Gastrointestinal: non-tender, soft Extremities: edema, other (Contracted) Results Result Diagram: 01/12/17 0548 01/14/17 0553 Results 24 hrs Laboratory Tests Test 01/14/17 05:53 Sodium Level 141 Potassium Level 3.3 L Chloride Level 100 Carbon Dioxide Level 33 H Anion Gap 11 Blood Urea Nitrogen 25 H Creatinine 0.60 Glucose Level 104 Calcium Level 9.2 Medications Medications Current Medications Acetaminophen (Tylenol Tab) 650 mg BID PRN PO PAIN AND OR ELEVATED TEMP Last administered on 01/10/17 14:08; Admin Dose 650 MG; Start 01/08/17 at 22:30 Amlodipine Besylate (Norvasc) 10 mg DAILY PO Last administered on 01/14/17 09 :51; Admin Dose 10 MG; Start 01/09/17 at 09:00 Atorvastatin Calcium (Lipitor) 10 mg QHS PO Last administered on 01/13/17 20: 41; Admin Dose 10 MG; Start 01/09/17 at 21:00 Sertraline HCl (Zoloft) 25 mg DAILY PO Last administered on 01/14/17 09:51; Admin Dose 25 MG; Start 01/09/17 at 09:00 Tramadol HCl (Ultram) 50 mg Q12H PRN PO PAIN 1-01/13 Last administered on 22:22; Admin Dose 50 MG; Start 01/08/17 at 22:30 Rivastigmine Tartrate (Exelon 4.6 Mg/ 24 Hr Patch) 1 patch Q24H TRANSDERM Last administered on 01/14/17 12:42; Admin Dose 1 PATCH; Start 01/09/17 at 10:15 Famotidine (Pepcid) 20 mg DAILY PO Last administered on 01/14/17 09:52; Admin Dose 20 MG; Start 01/09/17 at 13:00 Enoxaparin Sodium (Lovenox) 30 mg DAILY SC Last administered on 01/14/17 10: 03; Admin Dose 30 MG; Start 01/09/17 at 13:00 Isosorbide Dinitrate (Isordil) 10 mg TID PO Last administered on 01/14/17 12: 42; Admin Dose 10 MG; Start 01/09/17 at 21:00 Docusate Sodium (Colace Liquid Cup) 100 mg BID PO Last administered on 09:52; Admin Dose 100 MG; Start 01/10/17 at 09:00 Valproate Sodium (Depakene Liquid Cup) 250 mg TID PO Last administered on 01/14 12:41; Admin Dose 250 MG; Start 01/10/17 at 09:00 Levofloxacin (Levaquin) 250 mg DAILY@06 PO Last administered on 01/14/17 06: 32; Admin Dose 250 MG; Start 01/13/17 at 06:00 Potassium Chloride (Potassium Chloride Pwd/Soln) 20 meq DAILY PO Last administered on 01/14/17 09:52; Admin Dose 20 MEQ; Start 01/14/17 at 09:00 Cholecalciferol (Vitamin D) 1,000 unit DAILY PO Last administered on 09:51; Admin Dose 1,000 UNIT; Start 01/14/17 at 09:00 ALO GUERRERO Jan 14, 2017 17:30
[2017-01-14 20:13] VITALS: BP 132/68; RESP 19
[2017-01-14] MEDS: ATORVASTATIN 10 MG TAB PO SCH (22:53)
[2017-01-15 02:59] VITALS: BP 124/61; RESP 18
[2017-01-15 05:19] LABS: BASOPHIL # 0.1 10^3/ul (0.0-0.1); BASOPHILS % 0.6 % (0.0-2.0); EOSINOPHILS # 0.2 10^3/ul (0.0-0.5); EOSINOPHILS % 1.8 % (0.0-7.0); HEMATOCRIT 42.8 % (37.0-47.0); HEMOGLOBIN 14.2 g/dl (12.0-16.0); LYMPHOCYTES # 2.6 10^3/ul (0.8-2.9); LYMPHOCYTES % 28.9 % (15.0-51.0); MEAN CORPUSCULAR HEMOGLOBIN 29.1 pg (29.0-33.0); MEAN CORPUSCULAR HGB CONC 33.2 g/dl (32.0-37.0); MEAN CORPUSCULAR VOLUME 87.7 fl (82.0-101.0); MEAN PLATELET VOLUME 9.4 fl (7.4-10.4); MONOCYTE # 0.9 10^3/ul (0.3-0.9); MONOCYTES % 10.5 % (0.0-11.0); NEUTROPHIL # 5.1 10^3/ul (1.6-7.5); NEUTROPHILS % 57.2 % (39.0-77.0); PLATELET COUNT 319 10^3/UL (140-415); RED BLOOD COUNT 4.88 10^6/ul (4.20-5.40); RED CELL DISTRIBUTION WIDTH 12.5 % (11.5-14.5); WHITE BLOOD COUNT 8.9 10^3/ul (4.8-10.8)
[2017-01-15] MEDS: LEVOFLOXACIN 250 MG TAB PO SCH (05:48)
[2017-01-15] MEDS: FUROSEMIDE 20 MG TAB PO SCH ×2 (05:48→17:39)
[2017-01-15 05:53] LABS: CALCIUM 9.2 mg/dl (8.4-10.2); CREATININE 0.65 mg/dl (0.44-1.00); POTASSIUM 3.3 mmol/L (3.5-5.1)
[2017-01-15] MEDS: LEVOTHYROXINE 137 MCG TAB PO SCH (06:48)
[2017-01-15 07:35] VITALS: BP 138/76; RESP 18
[2017-01-15] MEDS: POTASSIUM CHLORIDE 20 MEQ POWDER FOR ORAL SOLN PO SCH (08:39)
[2017-01-15] MEDS: ISOSORBIDE DINITRATE 10 MG TAB PO SCH ×3 (08:40→20:15)
[2017-01-15] MEDS: AMLODIPINE 10 MG TAB PO SCH (08:44)
[2017-01-15] MEDS: FAMOTIDINE 20 MG TAB PO SCH (08:44)
[2017-01-15] MEDS: SERTRALINE 50 MG TAB PO SCH (08:44)
[2017-01-15] MEDS: VALPROIC ACID LIQUID CUP 250 MG/5 ML CUP PO SCH ×3 (08:45→20:14)
[2017-01-15] MEDS: DOCUSATE SODIUM 10 MG/ML (10ML CUP) PO SCH ×2 (08:45→20:14)
[2017-01-15] MEDS: CHOLECALCIFEROL 1,000 UNIT TAB PO SCH (08:45)
[2017-01-15] MEDS: ENOXAPARIN 30 MG/0.3 ML SYG SC SCH (08:51)
[2017-01-15] MEDS: RIVASTIGMINE 4.6MG/24H PATCH TRANSDERM SCH (10:26)
--- NOTE | 2017-01-15 13:40 | RADRPT ---
Vent Rate: 68 bpm RR Interval: 0 msec FL Interval: 182 msec QRS Duration: 64 msec QT Interval: 406 msec QTC Interval: 431 msec P-R-T [place]: 44 - -40 - 8 degrees Normal sinus rhythm Left axis deviation Inferior infarct , age undetermined Anterolateral infarct , age undetermined Abnormal ECG Electronically Signed By: Evin Mercado [id number]
[2017-01-15 14:04] VITALS: BP 124/62; RESP 18
--- NOTE | 2017-01-15 17:39 | CONS ---
Date/Time of Note Date/Time of Note DATE: 01/15/17 TIME: 17:37 Assessment/Plan Assessment/Plan Chief Complaint/Hosp Course IMPRESSION: 1. Chest pain, assess for acute coronary syndrome, somewhat poorly described.- negative trop x 3/NL EF 60-65% by echo this admit 2. Abnormal electrocardiogram with inferior Q's and poor R-wave progression across the anterior leads and anterolateral Q's.-negative troponins/NL EF by echo 3. Shortness of breath with increased BNP, assess for congestive heart failure. 4. Dyslipidemia. 5. Urinary tract infection. 6. Hypothyroidism. 7. Psychiatric disorder. 8. HTN-reasonable control REcc: -Continue norvasc/isordil -Continue statin -Continue lasix PO and follow volume sttatus -Continue abx's and f/u cx data -Continue bronchodilators -D/C planning Problems: Consultation Date/Type/Reason Admit Date/Time Jan 11, 2017 at 02:22 Initial Consult Date 01/11/2017 Type of Consultation: Cardiology Reason for Consultation chest pain Referring Provider: FRANKY LEMUS MD Exam/Review of Systems Vital Signs Vitals Vital Signs Date Time Temp Pulse Resp B/P Pulse Ox O2 Delivery O2 Flow Rate FiO2 01/15/17 14:04 98.2 72 18 124/62 93 Intake and Output 01/14/17 01/14/17 01/15/17 15:00 23:00 07:00 Intake Total 460 ml 240 ml Balance 460 ml 240 ml Exam Review of Systems: CONSTITUTIONAL: No fevers, chills. PULMONARY: No sob CARDIOVASCULAR: No chest pain/palpitations GASTROINTESTINAL: No nausea/vomiting. GENITOURINARY: No hematuria/dysuria. MUSCULOSKELETAL: No myagias/arthalgias. PSYCHIATRIC: The patient denies depression. NEUROLOGIC: No weakness Constitutional: other (sleeping) Psych: no complaints Head: normocephalic ENMT: mucosa pink and moist Neck: jvd (9 cm water), supple Respiratory: diminished breath sounds Cardiovascular: regular rate and rhythm Gastrointestinal: non-tender, soft Musculoskeletal: muscle weakness (generalized) Extremities: edema (none) Neurological: lethargic Results Result Diagram: 01/15/17 0433 01/15/17 0433 Results 24 hrs Laboratory Tests Test 01/15/17 04:33 White Blood Count 8.9 # Red Blood Count 4.88 Hemoglobin 14.2 Hematocrit 42.8 Mean Corpuscular Volume 87.7 Mean Corpuscular Hemoglobin 29.1 Mean Corpuscular Hemoglobin Concent 33.2 Red Cell Distribution Width 12.5 Platelet Count 319 Mean Platelet Volume 9.4 Neutrophils % 57.2 Lymphocytes % 28.9 Monocytes % 10.5 Eosinophils % 1.8 Basophils % 0.6 Nucleated Red Blood Cells % 0.0 Neutrophils # 5.1 Lymphocytes # 2.6 Monocytes # 0.9 Eosinophils # 0.2 Basophils # 0.1 Nucleated Red Blood Cells # 0.0 Sodium Level 140 Potassium Level 3.3 L Chloride Level 99 Carbon Dioxide Level 34 H Anion Gap 10 Blood Urea Nitrogen 24 H Creatinine 0.65 Glucose Level 103 Calcium Level 9.2 Medications Medications Current Medications Acetaminophen (Tylenol Tab) 650 mg BID PRN PO PAIN AND OR ELEVATED TEMP Last administered on 01/10/17 14:08; Admin Dose 650 MG; Start 01/08/17 at 22:30 Amlodipine Besylate (Norvasc) 10 mg DAILY PO Last administered on 01/15/17 08 :44; Admin Dose 10 MG; Start 01/09/17 at 09:00 Atorvastatin Calcium (Lipitor) 10 mg QHS PO Last administered on 01/14/17 22: 53; Admin Dose 10 MG; Start 01/09/17 at 21:00 Sertraline HCl (Zoloft) 25 mg DAILY PO Last administered on 01/15/17 08:44; Admin Dose 25 MG; Start 01/09/17 at 09:00 Tramadol HCl (Ultram) 50 mg Q12H PRN PO PAIN -01/13 Last administered on 22:22; Admin Dose 50 MG; Start 01/08/17 at 22:30 Rivastigmine Tartrate (Exelon 4.6 Mg/ 24 Hr Patch) 1 patch Q24H TRANSDERM Last administered on 01/15/17 10:26; Admin Dose 1 PATCH; Start 01/09/17 at 10:15 Famotidine (Pepcid) 20 mg DAILY PO Last administered on 01/15/17 08:44; Admin Dose 20 MG; Start 01/09/17 at 13:00 Enoxaparin Sodium (Lovenox) 30 mg DAILY SC Last administered on 01/15/17 08: 51; Admin Dose 30 MG; Start 01/09/17 at 13:00 Isosorbide Dinitrate (Isordil) 10 mg TID PO Last administered on 01/15/17 13: 16; Admin Dose 10 MG; Start 01/09/17 at 21:00 Docusate Sodium (Colace Liquid Cup) 100 mg BID PO Last administered on 22:53; Admin Dose 100 MG; Start 01/10/17 at 09:00 Valproate Sodium (Depakene Liquid Cup) 250 mg TID PO Last administered on 01/15 13:16; Admin Dose 250 MG; Start 01/10/17 at 09:00 Potassium Chloride (Potassium Chloride Pwd/Soln) 20 meq DAILY PO Last administered on 01/15/17 08:39; Admin Dose 20 MEQ; Start 01/14/17 at 09:00 Cholecalciferol (Vitamin D) 1,000 unit DAILY PO Last administered on 08:45; Admin Dose 1,000 UNIT; Start 01/14/17 at 09:00 RAMILA DIAZ Jan 15, 2017 17:39
[2017-01-15 20:00] VITALS: BP 131/67; RESP 19
[2017-01-15] MEDS: ATORVASTATIN 10 MG TAB PO SCH (20:15)
[2017-01-15] MEDS: ACETAMINOPHEN 325 MG TAB PO PRN (20:15)
--- NOTE | 2017-01-15 20:58 | PN ---
Date/Time of Note Date/Time of Note DATE: 01/15/17 TIME: 20:58 Assessment/Plan Lines/Catheters IV [facility] Type (from [facility] Saline Lock Urinary Cath still in place: No Assessment/Plan Assessment/Plan - Acute on chronic diastolic congestive heart failure. Continue Lasix. Dr. Dyer is following in cardiology consultation. - Rule out acute coronary syndrome. Cardiac enzymes are negative 3. - Shortness of breath secondary to congestive heart failure exacerbation. - Hypertension, continue Norvasc - UTI per UA. Continue Levaquin. - Hypothyroidism. Continue current dose of Synthroid. - Alzheimer dementia. Continue Exelon patch. Further recommendations based on clinical course. Plan of care discussed with Dr. Mckinney. Exam/Review of Systems Vital Signs Vitals Vital Signs Date Time Temp Pulse Resp B/P Pulse Ox O2 Delivery O2 Flow Rate FiO2 01/15/17 14:04 98.2 72 18 124/62 93 Intake and Output 01/14/17 01/14/17 01/15/17 15:00 23:00 07:00 Intake Total 460 ml 240 ml Balance 460 ml 240 ml Results Result Diagram: 01/15/17 0433 01/15/17 0433 Results 24 hrs Laboratory Tests Test 01/15/17 04:33 White Blood Count 8.9 # Red Blood Count 4.88 Hemoglobin 14.2 Hematocrit 42.8 Mean Corpuscular Volume 87.7 Mean Corpuscular Hemoglobin 29.1 Mean Corpuscular Hemoglobin Concent 33.2 Red Cell Distribution Width 12.5 Platelet Count 319 Mean Platelet Volume 9.4 Neutrophils % 57.2 Lymphocytes % 28.9 Monocytes % 10.5 Eosinophils % 1.8 Basophils % 0.6 Nucleated Red Blood Cells % 0.0 Neutrophils # 5.1 Lymphocytes # 2.6 Monocytes # 0.9 Eosinophils # 0.2 Basophils # 0.1 Nucleated Red Blood Cells # 0.0 Sodium Level 140 Potassium Level 3.3 L Chloride Level 99 Carbon Dioxide Level 34 H Anion Gap 10 Blood Urea Nitrogen 24 H Creatinine 0.65 Glucose Level 103 Calcium Level 9.2 Medications Medications Current Medications Acetaminophen (Tylenol Tab) 650 mg BID PRN PO PAIN AND OR ELEVATED TEMP Last administered on 01/15/17t 20:15; Admin Dose 650 MG; Start 01/08/17 at 22:30 Amlodipine Besylate (Norvasc) 10 mg DAILY PO Last administered on 01/15/17 08 :44; Admin Dose 10 MG; Start 01/09/17 at 09:00 Atorvastatin Calcium (Lipitor) 10 mg QHS PO Last administered on 01/15/17 20: 15; Admin Dose 10 MG; Start 01/09/17 at 21:00 Sertraline HCl (Zoloft) 25 mg DAILY PO Last administered on 01/15/17 08:44; Admin Dose 25 MG; Start 01/09/17 at 09:00 Tramadol HCl (Ultram) 50 mg Q12H PRN PO PAIN -01/13 Last administered on 22:22; Admin Dose 50 MG; Start 01/08/17 at 22:30 Rivastigmine Tartrate (Exelon 4.6 Mg/ 24 Hr Patch) 1 patch Q24H TRANSDERM Last administered on 01/15/17 10:26; Admin Dose 1 PATCH; Start 01/09/17 at 10:15 Famotidine (Pepcid) 20 mg DAILY PO Last administered on 01/15/17 08:44; Admin Dose 20 MG; Start 01/09/17 at 13:00 Enoxaparin Sodium (Lovenox) 30 mg DAILY SC Last administered on 01/15/17 08: 51; Admin Dose 30 MG; Start 01/09/17 at 13:00 Isosorbide Dinitrate (Isordil) 10 mg TID PO Last administered on 01/15/17 20: 15; Admin Dose 10 MG; Start 01/09/17 at 21:00 Docusate Sodium (Colace Liquid Cup) 100 mg BID PO Last administered on 20:14; Admin Dose 100 MG; Start 01/10/17 at 09:00 Valproate Sodium (Depakene Liquid Cup) 250 mg TID PO Last administered on 01/15 20:14; Admin Dose 250 MG; Start 01/10/17 at 09:00 Potassium Chloride (Potassium Chloride Pwd/Soln) 20 meq DAILY PO Last administered on 01/15/17 08:39; Admin Dose 20 MEQ; Start 01/14/17 at 09:00 Cholecalciferol (Vitamin D) 1,000 unit DAILY PO Last administered on 08:45; Admin Dose 1,000 UNIT; Start 01/14/17 at 09:00 TRAVIS MARTINS Jan 15, 2017 20:58
[2017-01-16 02:00] VITALS: BP 122/60; RESP 19
[2017-01-16] MEDS: LEVOTHYROXINE 137 MCG TAB PO SCH (06:01)
[2017-01-16] MEDS: FUROSEMIDE 20 MG TAB PO SCH ×2 (06:01→17:49)
[2017-01-16 07:40] VITALS: BP 133/77; RESP 18
[2017-01-16] MEDS: ENOXAPARIN 30 MG/0.3 ML SYG SC SCH (08:52)
[2017-01-16] MEDS: FAMOTIDINE 20 MG TAB PO SCH (08:53)
[2017-01-16] MEDS: CHOLECALCIFEROL 1,000 UNIT TAB PO SCH (08:53)
[2017-01-16] MEDS: VALPROIC ACID LIQUID CUP 250 MG/5 ML CUP PO SCH ×3 (08:53→21:15)
[2017-01-16] MEDS: SERTRALINE 50 MG TAB PO SCH (08:53)
[2017-01-16] MEDS: DOCUSATE SODIUM 10 MG/ML (10ML CUP) PO SCH ×2 (08:53→21:15)
[2017-01-16] MEDS: AMLODIPINE 10 MG TAB PO SCH (08:54)
[2017-01-16] MEDS: ISOSORBIDE DINITRATE 10 MG TAB PO SCH ×3 (08:54→21:16)
[2017-01-16] MEDS: POTASSIUM CHLORIDE 20 MEQ POWDER FOR ORAL SOLN PO SCH (08:54)
[2017-01-16] MEDS: RIVASTIGMINE 4.6MG/24H PATCH TRANSDERM SCH (10:44)
[2017-01-16] MEDS: ACETAMINOPHEN 325 MG TAB PO PRN (13:09)
[2017-01-16 14:18] VITALS: BP 124/69; RESP 18
--- NOTE | 2017-01-16 17:48 | CONS ---
Date/Time of Note Date/Time of Note DATE: 01/16/17 TIME: 17:47 Assessment/Plan Assessment/Plan Chief Complaint/Hosp Course IMPRESSION: 1. Chest pain, assess for acute coronary syndrome, somewhat poorly described.- negative trop x 3/NL EF 60-65% by echo this admit 2. Abnormal electrocardiogram with inferior Q's and poor R-wave progression across the anterior leads and anterolateral Q's.-negative troponins/NL EF by echo 3. Shortness of breath with increased BNP, assess for congestive heart failure. 4. Dyslipidemia. 5. Urinary tract infection. 6. Hypothyroidism. 7. Psychiatric disorder. 8. HTN-reasonable control REcc: -Continue norvasc/isordil -Continue statin -Continue lasix PO and follow volume sttatus -Continue abx's and f/u cx data -Continue bronchodilators -D/C planning Problems: Consultation Date/Type/Reason Admit Date/Time Jan 11, 2017 at 02:22 Initial Consult Date 01/11/2017 Type of Consultation: Cardiology Reason for Consultation Chest pain Referring Provider: FRANKY LEMUS MD Exam/Review of Systems Vital Signs Vitals Vital Signs Date Time Temp Pulse Resp B/P Pulse Ox O2 Delivery O2 Flow Rate FiO2 01/16/17 14:18 98.3 80 18 124/69 95 Intake and Output 01/15/17 01/15/17 01/16/17 15:00 23:00 07:00 Intake Total 440 ml 350 ml Balance 440 ml 350 ml Exam Review of Systems: CONSTITUTIONAL: No fevers, chills. PULMONARY: No sob CARDIOVASCULAR: No chest pain/palpitations GASTROINTESTINAL: No nausea/vomiting. GENITOURINARY: No hematuria/dysuria. MUSCULOSKELETAL: No myagias/arthalgias. PSYCHIATRIC: The patient denies depression. NEUROLOGIC: lethargic Constitutional: alert Psych: no complaints Head: normocephalic ENMT: mucosa pink and moist Neck: jvd (9 cm water), supple Respiratory: diminished breath sounds (at bases/B) Cardiovascular: regular rate and rhythm Gastrointestinal: soft Musculoskeletal: muscle weakness (mild generalized) Extremities: edema (none) Neurological: lethargic Results Result Diagram: 01/15/17 0433 01/15/17 0433 Medications Medications Current Medications Acetaminophen (Tylenol Tab) 650 mg BID PRN PO PAIN AND OR ELEVATED TEMP Last administered on 01/16/17 13:09; Admin Dose 650 MG; Start 01/08/17 at 22:30 Amlodipine Besylate (Norvasc) 10 mg DAILY PO Last administered on 01/16/17 08 :54; Admin Dose 10 MG; Start 01/09/17 at 09:00 Atorvastatin Calcium (Lipitor) 10 mg QHS PO Last administered on 01/15/17 20: 15; Admin Dose 10 MG; Start 01/09/17 at 21:00 Sertraline HCl (Zoloft) 25 mg DAILY PO Last administered on 01/16/17 08:53; Admin Dose 25 MG; Start 01/09/17 at 09:00 Tramadol HCl (Ultram) 50 mg Q12H PRN PO PAIN -01/13 Last administered on 22:22; Admin Dose 50 MG; Start 01/08/17 at 22:30 Rivastigmine Tartrate (Exelon 4.6 Mg/ 24 Hr Patch) 1 patch Q24H TRANSDERM Last administered on 01/16/17 10:44; Admin Dose 1 PATCH; Start 01/09/17 at 10:15 Famotidine (Pepcid) 20 mg DAILY PO Last administered on 01/16/17 08:53; Admin Dose 20 MG; Start 01/09/17 at 13:00 Enoxaparin Sodium (Lovenox) 30 mg DAILY SC Last administered on 01/16/17 08: 52; Admin Dose 30 MG; Start 01/09/17 at 13:00 Isosorbide Dinitrate (Isordil) 10 mg TID PO Last administered on 01/16/17 13: 09; Admin Dose 10 MG; Start 01/09/17 at 21:00 Docusate Sodium (Colace Liquid Cup) 100 mg BID PO Last administered on 08:53; Admin Dose 100 MG; Start 01/10/17 at 09:00 Valproate Sodium (Depakene Liquid Cup) 250 mg TID PO Last administered on 01/16 13:08; Admin Dose 250 MG; Start 01/10/17 at 09:00 Potassium Chloride (Potassium Chloride Pwd/Soln) 20 meq DAILY PO Last administered on 01/16/17 08:54; Admin Dose 20 MEQ; Start 01/14/17 at 09:00 Cholecalciferol (Vitamin D) 1,000 unit DAILY PO Last administered on 08:53; Admin Dose 1,000 UNIT; Start 01/14/17 at 09:00 RAMILA DIAZ Jan 16, 2017 17:48
[2017-01-16 17:51] VITALS: BP 115/59
--- NOTE | 2017-01-16 19:03 | PN ---
Date/Time of Note Date/Time of Note DATE: 01/16/17 TIME: 19:02 Assessment/Plan VTE Prophylaxis VTE Prophylaxis Intervention: SCD's Lines/Catheters IV [facility]from [facility] Urinary Cath still in place: No Assessment/Plan Chief Complaint/Hosp Course Will check BMP stat,patient with persistent hypokalemia however on daily replacement potassium, potassium is stable on current regimen patient could be discharged to long-term facility. Assessment/Plan - Acute on chronic diastolic congestive heart failure. Continue Lasix. Dr. Dyer is following in cardiology consultation. - Rule out acute coronary syndrome. Cardiac enzymes are negative 3. - Shortness of breath secondary to congestive heart failure exacerbation. - Hypertension, continue Norvasc - UTI per UA. Continue Levaquin. - Hypothyroidism. Continue current dose of Synthroid. - Alzheimer dementia. Continue Exelon patch. Further recommendations based on clinical course. Plan of care discussed with Dr. Mckinney. Problems: Exam/Review of Systems Vital Signs Vitals Vital Signs Date Time Temp Pulse Resp B/P Pulse Ox O2 Delivery O2 Flow Rate FiO2 01/16/17 17:51 115/59 01/16/17 14:18 98.3 80 18 95 Intake and Output 01/15/17 01/15/17 01/16/17 15:00 23:00 07:00 Intake Total 440 ml 350 ml Balance 440 ml 350 ml Exam Constitutional: non-verbal Head: normocephalic Neck: supple Respiratory: diminished breath sounds Cardiovascular: irregular rhythm, murmurs/extra sounds Gastrointestinal: non-tender, soft Extremities: edema, other (Contracted) Results Result Diagram: 01/15/17 0433 01/15/17 0433 Medications Medications Current Medications Acetaminophen (Tylenol Tab) 650 mg BID PRN PO PAIN AND OR ELEVATED TEMP Last administered on 01/16/17 13:09; Admin Dose 650 MG; Start 01/08/17 at 22:30 Amlodipine Besylate (Norvasc) 10 mg DAILY PO Last administered on 01/16/17 08 :54; Admin Dose 10 MG; Start 01/09/17 at 09:00 Atorvastatin Calcium (Lipitor) 10 mg QHS PO Last administered on 01/15/17 20: 15; Admin Dose 10 MG; Start 01/09/17 at 21:00 Sertraline HCl (Zoloft) 25 mg DAILY PO Last administered on 01/16/17 08:53; Admin Dose 25 MG; Start 01/09/17 at 09:00 Tramadol HCl (Ultram) 50 mg Q12H PRN PO PAIN -01/13 Last administered on 22:22; Admin Dose 50 MG; Start 01/08/17 at 22:30 Rivastigmine Tartrate (Exelon 4.6 Mg/ 24 Hr Patch) 1 patch Q24H TRANSDERM Last administered on 01/16/17 10:44; Admin Dose 1 PATCH; Start 01/09/17 at 10:15 Famotidine (Pepcid) 20 mg DAILY PO Last administered on 01/16/17 08:53; Admin Dose 20 MG; Start 01/09/17 at 13:00 Enoxaparin Sodium (Lovenox) 30 mg DAILY SC Last administered on 01/16/17 08: 52; Admin Dose 30 MG; Start 01/09/17 at 13:00 Isosorbide Dinitrate (Isordil) 10 mg TID PO Last administered on 01/16/17 13: 09; Admin Dose 10 MG; Start 01/09/17 at 21:00 Docusate Sodium (Colace Liquid Cup) 100 mg BID PO Last administered on 08:53; Admin Dose 100 MG; Start 01/10/17 at 09:00 Valproate Sodium (Depakene Liquid Cup) 250 mg TID PO Last administered on 01/16 13:08; Admin Dose 250 MG; Start 01/10/17 at 09:00 Potassium Chloride (Potassium Chloride Pwd/Soln) 20 meq DAILY PO Last administered on 01/16/17 08:54; Admin Dose 20 MEQ; Start 01/14/17 at 09:00 Cholecalciferol (Vitamin D) 1,000 unit DAILY PO Last administered on 08:53; Admin Dose 1,000 UNIT; Start 01/14/17 at 09:00 ALO GUERRERO Jan 16, 2017 19:03
[2017-01-16 19:50] LABS: CALCIUM 9.2 mg/dl (8.4-10.2); CREATININE 0.66 mg/dl (0.44-1.00); POTASSIUM 4.1 mmol/L (3.5-5.1)
[2017-01-16] MEDS: ATORVASTATIN 10 MG TAB PO SCH (21:15)
== END 2017-01-16 22:00 | DRG 292 ==
LOC: E/R 17:43 → PP2 20:12 → E/R 20:40 → OBSVTOIN 01-11 02:22
PROVIDERS: ADMIT Internal Medicine; ATTEND Internal Medicine
DX: I11.0 Hypertensive heart disease with heart failure (principal); N39.0 Urinary tract infection, site not specified; G30.9 Alzheimer's disease, unspecified; F02.80 Dementia in other diseases classified elsewhere, unspecified severity, without behavioral disturbance, psychotic disturbance, mood disturbance, and anxiety; I50.33 Acute on chronic diastolic (congestive) heart failure; R63.5 Abnormal weight gain; E03.9 Hypothyroidism, unspecified; E78.5 Hyperlipidemia, unspecified; F41.9 Anxiety disorder, unspecified; F99 Mental disorder, not otherwise specified
CPT/HCPCS: 36415; 71010; 80048; 80061; 80076; 81001; 82550; 82553; 83880; 84439; 84443; 84484; 85025; 87081; 87086; 90686; 93005; 93306; 93970; G0378; J1940; A4310; J1650; J1956

== ENCOUNTER 2017-11-20 12:59 | Inpatient (IN) | END 2017-11-24 18:30 | DRG 391 ==

== ENCOUNTER 2018-05-20 16:19 | Emergency (ER) | payer MEDICARE, OTHER ==
[~2018-05-20] VITALS: Ht 152.4 cm; Wt 60.0 kg
[~2018-05-20 16:19] MED LIST changes: -ACET325T33 PO; +ACET325T45 PO; +ASPI-903 PO; +ATOR10TA65 PO; -CALC-459 PO; +CHOL100062 PO; -CHOL50009 PO; -DONE10TA7 PO; +FAMO20TA18 PO; -FER325 PO; +FURO20TA3 PO; +GUAI5SYR2 PO; +ISOS10TA2 PO; -LEVO137T24 PO; +LEVO137T3 PO; +MELA3TAB17 PO; -MEMA28CA PO; -MULT-212 PO; -OMEP10CA2 PO; -OXYC-281 PO; -PARO10TA26 PO; +POTA20TA96 PO; +RIVA1PAT2 TD; -SERT100T PO; +SERT25TA83 PO; +TRAM50TA PO; +VALP250C3 PO; -[UNRECOGNIZED DRUG - CODE] PO
[2018-05-20 16:31] VITALS: Ht 152.4 cm; Wt 60.0 kg
--- NOTE | 2018-05-20 16:52 | ERD ---
ER Documentation Chief Complaint Chief Complaint bib ra from snf for lt thigh pain HPI 87-year-old noncommunicative female presenting from her intermediate facility after they noticed that she has had left thigh swelling without any history of recent injury. It is unclear how long the swelling has been going on. Patient has unable to provide any history given her advanced dementia. ROS Unable to obtain Medications Home Meds Reported Medications Tramadol Hcl* (Ultram*) 50 Mg Tablet, 50 MG PO Q12H PRN for PAIN, TAB 05/20/18 Valproic Acid* (Valproic Acid* Liq) 250 Mg/5 Ml Syrup, 125 MG PO DAILY, ML 05/20/18 Sertraline Hcl* (Zoloft*) 25 Mg Tablet, 25 MG PO DAILY, #30 TAB 05/20/18 Potassium Chloride* (Potassium Chloride*) 20 Meq Tablet.er, 20 MEQ PO DAILY, TAB.SA 05/20/18 Omeprazole* (Omeprazole*) 20 Mg Capsule.dr, 40 MG PO QAM, #30 CAP 05/20/18 Amlodipine Besylate* (Norvasc*) 10 Mg Tablet, 10 MG PO DAILY, TAB HOLD FOR SBP<110 OR ID<60 05/20/18 Memantine* (Namenda*) 10 Mg Tablet, 10 MG PO DAILY, #30 TAB 05/20/18 Melatonin (Melatonin) 3 Mg Tablet.sa, 3 MG PO HS, TAB.SA 05/20/18 Atorvastatin Calcium* (Atorvastatin Calcium*) 20 Mg Tablet, 20 MG PO QHS, #30 TAB 05/20/18 Levothyroxine Sodium* (Levothyroxine Sodium*) 137 Mcg Tablet, 137 MCG PO BEFORE BREAKFAST, #30 TAB 05/20/18 Furosemide* (Lasix*) 20 Mg Tablet, 20 MG PO BID, TAB HOLD FOR SBP<110 OR ID<60 05/20/18 Isosorbide Dinitrate* (Isosorbide Dinitrate*) 10 Mg Tablet, 10 MG PO TID, TAB HOLD FOR SBP<110 OR ID<60 05/20/18 Rivastigmine* Patch (Exelon* Patch) 9.5 Mg/24 Hr Patch.td24, 1 PATCH TD DAILY, PATCH 05/20/18 Docusate Sodium* (Colace*) 100 Mg Capsule, 100 MG PO BID, #60 CAP 05/20/18 Cholecalciferol* (Vitamin D3*) 1,000 Unit Tablet, 2000 UNIT PO DAILY, TAB 05/20/18 Aspirin* (Aspirin* Chew) 81 Mg Tab.chew, 81 MG PO DAILY, TAB.CHEW 05/20/18 Acetaminophen* (Tylenol*) 325 Mg Tablet, 650 MG PO Q4H PRN for PAIN LEVEL 1- 5/10, TAB 05/20/18 Discontinued Reported Medications Valproic Acid* (Valproic Acid*) 250 Mg Capsule, 250 MG PO BID, CAP 11/19/17 Valproic Acid* (Valproic Acid*) 250 Mg Capsule, 125 MG PO DAILY, CAP 11/19/17 Tramadol Hcl* (Ultram*) 50 Mg Tablet, 50 MG PO Q12H PRN for PAIN LEVEL 6-10, TAB 11/19/17 Sertraline Hcl* (Sertraline Hcl*) 25 Mg Tablet, 25 MG PO DAILY, #30 TAB 11/19/17 Guaifenesin-Dextromethorphan* (Robitussin* DM) 100MG/10MG/5ML Syrup, 10 ML PO Q6H PRN for COUGH, ML 11/19/17 Potassium Chloride* (Potassium Chloride*) 20 Meq Tablet.er, 20 MEQ PO DAILY, TAB.SA 11/19/17 Amlodipine Besylate* (Norvasc*) 10 Mg Tablet, 10 MG PO DAILY, TAB HOLD FOR SBP<110 AND ID<60 11/19/17 Melatonin (Melatonin) 3 Mg Tablet.sa, 3 MG PO HS, TAB.SA 11/19/17 Levothyroxine Sodium* (Levothyroxine Sodium*) 137 Mcg Tablet, 137 MCG PO BEFORE BREAKFAST, #30 TAB 11/19/17 Isosorbide Dinitrate* (Isosorbide Dinitrate*) 10 Mg Tablet, 10 MG PO TID, TAB HOLD FOR SBP<110 AND ID<60 11/19/17 Furosemide* (Furosemide*) 20 Mg Tablet, 20 MG PO BID, #30 TAB HOLD FOR SBP<110 OR HR<60 11/19/17 Famotidine* (Famotidine*) 20 Mg Tablet, 20 MG PO DAILY, #30 TAB 11/19/17 Rivastigmine* Patch (Exelon* Patch) 9.5 Mg/24 Hr Patch.td24, 1 PATCH TD DAILY, PATCH 11/19/17 Docusate Sodium* (Colace*) 100 Mg Capsule, 100 MG PO BID, #60 CAP 11/19/17 Cholecalciferol* (Vitamin D3*) 1,000 Unit Tablet, 1000 UNIT PO DAILY, TAB 11/19/17 Atorvastatin Calcium (Atorvastatin Calcium) 10 Mg Tablet, 10 MG PO QHS, #30 TAB 11/19/17 Aspirin* (Aspirin* Chew) 81 Mg Tab.chew, 81 MG PO DAILY, TAB.CHEW 11/19/17 Acetaminophen* (Acetaminophen*) 325 Mg Tablet, 650 MG PO Q12H PRN for PAIN LEVEL 1-5, #30 TAB 11/19/17 Allergies Allergies: Coded Allergies: Penicillins (Verified Allergy, Severe, 05/20/18) lactose (Unverified Allergy, Unknown, 05/20/18) lactulose (Unverified Allergy, Unknown, 05/20/18) PMhx/Soc History of Surgery: Yes (bilateral hip ORIF) Anesthesia Reaction: No Hx Neurological Disorder: Yes (dementia) Hx Respiratory Disorders: No Hx Cardiac Disorders: Yes (CHF, hypercholesterolemia, hypertension) Hx Psychiatric Problems: Yes (depression, psychosis, anxiety, insomnia) Hx Miscellaneous Medical Probl: No Hx Alcohol Use: No Hx Substance Use: No Hx Tobacco Use: No Smoking Status: Never smoker FmHx Unable to obtain Physical Exam Vitals Vital Signs Date Temp Pulse Resp B/P (MAP) Pulse Ox O2 O2 Flow FiO2 Time Delivery Rate 05/20/18 78 18 128/79 98 Room Air 18:23 (95) 05/20/18 97.8 78 18 132/75 96 16:31 (94) Physical Exam INITIAL VITAL SIGNS: Reviewed by me GENERAL: Patient is lying on gurney, nonverbal HEAD: Normocephalic EYES: EOMI. PERRL. No icterus. No pallor. Lids, lashes, and conjunctiva clear. ENT: Mucous membranes dry, no erythema or tonsillar exudates. Airway patent. NECK: Supple. RESPIRATORY: Clear to auscultation bilaterally. CV: Regular rate and rhythm. No murmurs, No rubs or gallops. ABDOMEN: Soft, non-distended, non-tender. No guarding. No rebound. No pulsatile mass. Bowel sounds normal. EXTREMITIES: Left anterior thigh swelling, soft, no overlying erythema. No evidence of abscess. Nontender to palpation. Hip joints nontender. Knee not swollen with full range of motion. Full range of motion at the ankles as well.. Pulses symmetric. No deficits or delays. Calves non-tender. No cords. SKIN: Warm and dry. No obvious rash, petechiae or purpura. NEUROLOGIC: Awake and alert. Moves all extremities equally. Nonverbal. Not following commands (pt's baseline) Result Diagram: 05/20/18 1753 05/20/18 1753 Results 24 hrs Laboratory Tests Test 05/20/18 17:53 White Blood Count 6.6 10^3/ul Red Blood Count 5.10 10^6/ul Hemoglobin 14.6 g/dl Hematocrit 44.7 % Mean Corpuscular Volume 87.6 fl Mean Corpuscular Hemoglobin 28.6 pg Mean Corpuscular Hemoglobin Concent 32.7 g/dl Red Cell Distribution Width 13.8 % Platelet Count 210 10^3/UL Mean Platelet Volume 10.3 fl Immature Granulocytes % 0.300 % Neutrophils % 55.7 % Lymphocytes % 31.9 % Monocytes % 7.9 % Eosinophils % 3.7 % Basophils % 0.5 % Nucleated Red Blood Cells % 0.0 /100WBC Immature Granulocytes # 0.020 10^3/ul Neutrophils # 3.7 10^3/ul Lymphocytes # 2.1 10^3/ul Monocytes # 0.5 10^3/ul Eosinophils # 0.2 10^3/ul Basophils # 0.0 10^3/ul Nucleated Red Blood Cells # 0.0 10^3/ul Sodium Level 142 mmol/L Potassium Level 4.3 mmol/L Chloride Level 102 mmol/L Carbon Dioxide Level 32 mmol/L Anion Gap 8 Blood Urea Nitrogen 17 mg/dl Creatinine 0.58 mg/dl Est Glomerular Filtrat Rate mL/min mL/min Glucose Level 108 mg/dl Calcium Level 9.7 mg/dl Current Medications Medications Dose Sig/Rickie Start Time Status Last (Trade) Ordered Route PRN Stop Time Admin Dose Reason Admin Diazepam 5 mg ONCE ONCE 05/20/18 DC (Valium) GTB 17:00 05/20/18 17:00 Diazepam 2 mg ONCE ONCE 05/20/18 DC 05/20/18 (Valium) IV 17:00 16:45 05/20/18 17:01 Procedures/MDM EMERGENT LABS AND DIAGNOSTIC STUDIES: Labs were done and results reviewed by me. No significant abnormalities noted. Radiology Results as interpreted by Radiology below were reviewed by Marcus Guadarrama MD: X-ray left femur: No acute abnormalities Venous ultrasound left lower extremity: No evidence of DVT Initial Nursing notes reviewed. Previous Medical Records requested via the Electronic Health Record. EMERGENCY DEPARTMENT COURSE / MEDICAL DECISION MAKING: Patient is presenting with left thigh swelling that the facility thought was new, however the patient's family at bedside states that the swelling has been going on for quite some time. 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 Surgery was not recommended as the patient is mostly bedridden. I do not feel any further workup is necessary at this time. She does not seem to have an acute fracture. There is no evidence of infection. There is no evidence of abscess. There is no evidence of DVT. I spoke with Dr. Mckinney regarding this patient. He is aware that I am sending her back to the facility. I discussed the findings with the family and they are agreeable with the plan. Departure Diagnosis: Primary Impression: Swelling of thigh Condition: Stable SOILA GUADARRAMA MD May 20, 2018 16:52
[2018-05-20] MEDS ORDERED: DIAZEPAM 5 MG TAB GTB ONE (17:00)
[2018-05-20] MEDS ORDERED: DIAZEPAM 5 MG/ML SYG IV ONE (17:00)
[2018-05-20] MEDS ORDERED: ACET325T33 PO (17:56)
[2018-05-20] MEDS ORDERED: ASPI-903 PO (17:56)
[2018-05-20] MEDS ORDERED: CHOL100062 PO (17:57)
[2018-05-20] MEDS ORDERED: DOCU-144 PO (17:58)
[2018-05-20] MEDS ORDERED: RIVA1PAT2 TD (17:58)
[2018-05-20] MEDS ORDERED: ISOS10TA2 PO (17:59)
[2018-05-20] MEDS ORDERED: FURO-110 PO (18:00)
[2018-05-20] MEDS ORDERED: LEVO137T3 PO (18:00)
[2018-05-20] MEDS ORDERED: MELA3TAB17 PO (18:01)
[2018-05-20] MEDS ORDERED: ATOR20TA38 PO (18:01)
[2018-05-20] MEDS ORDERED: MEMA10TA PO (18:02)
[2018-05-20] MEDS ORDERED: AMLO-218 PO (18:05)
[2018-05-20] MEDS ORDERED: OMEP20CA16 PO (18:06)
[2018-05-20] MEDS ORDERED: POTA20TA96 PO (18:06)
[2018-05-20] MEDS ORDERED: SERT25TA PO (18:07)
[2018-05-20] MEDS ORDERED: VLP250480 PO (18:08)
[2018-05-20] MEDS ORDERED: TRAM50TA PO (18:09)
[2018-05-20 19:55] VITALS: BP 128/79; PULSE 66; RESP 18
== END 2018-05-20 20:00 | disposition home or self-care (01) ==
LOC: E/R 16:19
DX: R22.42 Localized swelling, mass and lump, left lower limb (principal); R40.2142 Coma scale, eyes open, spontaneous, at arrival to emergency department; R40.2222 Coma scale, best verbal response, incomprehensible words, at arrival to emergency department; R40.2352 Coma scale, best motor response, localizes pain, at arrival to emergency department; I11.0 Hypertensive heart disease with heart failure; I50.9 Heart failure, unspecified; Z79.82 Long term (current) use of aspirin
CPT/HCPCS: 73550; 80048; 85025; 93971; 96374; 99285; J3360

== ENCOUNTER 2018-09-06 16:04 | Inpatient (IN) | payer MEDICARE, OTHER ==
[~2018-09-06] VITALS: Ht 162.6 cm; Wt 59.9 kg
[~2018-09-06 16:04] MED LIST changes: +ACET325T33 PO; -ACET325T45 PO; -ATOR10TA65 PO; +ATOR20TA38 PO; -FAMO20TA18 PO; +FURO-110 PO; -FURO20TA3 PO; -GUAI5SYR2 PO; +MEMA10TA PO; +OMEP20CA16 PO; +SERT25TA PO; -SERT25TA83 PO; -VALP250C3 PO; +VLP250480 PO
--- NOTE | 2018-09-06 16:21 | ERD ---
ER Documentation Chief Complaint Chief Complaint Sentby Dr. Curiel for Left leg pain HPI The patient is a 88-year-old female, presenting to the ER because of left leg pain of unknown duration, sent by her physician. She is unable to provide any history because of her dementia, the history is obtained from the PCP, medical record Past medical history: Depression, hypertension, dyslipidemia, hypothyroidism, dementia, history of CHF, history of psychosis Past surgical history: Left hip ORIF Social history/review system: Unable to obtain due to her condition Medications Home Meds Reported Medications Guaifenesin-Dextromethorphan* (Robitussin* DM) 100MG/10MG/5ML Syrup, 10 ML PO Q6H PRN for COUGH, ML STOP DATE 09/17/18 09/06/18 Hydrocodone/Acetaminophen ([place] 5-325 Tablet) 1 Each Tablet, 1 EACH PO Q8H, TAB FOR PAIN LEVEL 7-10/10 09/06/18 Memantine* (Namenda*) 10 Mg Tablet, 10 MG PO DAILY, #30 TAB 09/06/18 Memantine* (Namenda*) 5 Mg Tablet, 5 MG PO QHS, #30 TAB 09/06/18 Carvedilol* (Carvedilol*) 3.125 Mg Tablet, 3.125 MG PO BID, #60 TAB HOLD IF SBP<110 OR HR<60 09/06/18 Acetaminophen* (Tylenol*) 325 Mg Tablet, 650 MG PO Q4H PRN for MILD PAIN LEVEL 1-3, TAB 09/06/18 Tramadol Hcl* (Ultram*) 50 Mg Tablet, 50 MG PO Q12H PRN for PAIN LEVEL 4-6/10, TAB 05/20/18 Potassium Chloride* (Potassium Chloride*) 20 Meq Tablet.er, 20 MEQ PO DAILY, TAB.SA 05/20/18 Omeprazole* (Omeprazole*) 20 Mg Capsule.dr, 40 MG PO QAM, #30 CAP 05/20/18 Amlodipine Besylate* (Norvasc*) 10 Mg Tablet, 10 MG PO DAILY, TAB HOLD FOR SBP<110 OR VA<60 05/20/18 Melatonin (Melatonin) 3 Mg Tablet.sa, 3 MG PO HS, TAB.SA 05/20/18 Atorvastatin Calcium* (Atorvastatin Calcium*) 20 Mg Tablet, 20 MG PO QHS, #30 TAB 05/20/18 Levothyroxine Sodium* (Levothyroxine Sodium*) 137 Mcg Tablet, 137 MCG PO BEFORE BREAKFAST, #30 TAB 05/20/18 Furosemide* (Lasix*) 20 Mg Tablet, 20 MG PO BID, TAB HOLD FOR SBP<110 OR VA<60 05/20/18 Isosorbide Dinitrate* (Isosorbide Dinitrate*) 10 Mg Tablet, 10 MG PO TID, TAB HOLD FOR SBP<110 OR VA<60 05/20/18 Docusate Sodium* (Colace*) 100 Mg Capsule, 100 MG PO BID, #60 CAP 05/20/18 Cholecalciferol* (Vitamin D3*) 1,000 Unit Tablet, 2000 UNIT PO DAILY, TAB 05/20/18 Aspirin* (Aspirin* Chew) 81 Mg Tab.chew, 81 MG PO DAILY, TAB.CHEW 05/20/18 Acetaminophen* (Tylenol*) 325 Mg Tablet, 650 MG PO Q6H PRN for FOR TEMP>100.2, T AB 05/20/18 Discontinued Reported Medications Valproic Acid* (Valproic Acid* Liq) 250 Mg/5 Ml Syrup, 125 MG PO DAILY, ML 05/20/18 Sertraline Hcl* (Zoloft*) 25 Mg Tablet, 25 MG PO DAILY, #30 TAB 05/20/18 Memantine* (Namenda*) 10 Mg Tablet, 10 MG PO DAILY, #30 TAB 05/20/18 Rivastigmine* Patch (Exelon* Patch) 9.5 Mg/24 Hr Patch.td24, 1 PATCH TD DAILY, PATCH 05/20/18 Allergies Allergies: Coded Allergies: Penicillins (Verified Allergy, Severe, 09/06/18) lactose (Unverified Allergy, Unknown, 09/06/18) lactulose (Unverified Allergy, Unknown, 09/06/18) PMhx/Soc History of Surgery: Yes (bilateral hip ORIF) Anesthesia Reaction: No Hx Neurological Disorder: Yes (dementia) Hx Respiratory Disorders: No Hx Cardiac Disorders: Yes (CHF, hypercholesterolemia, hypertension) Hx Psychiatric Problems: Yes (depression, psychosis, anxiety, insomnia) Hx Miscellaneous Medical Probl: Yes (hypothyroidism ) Hx Alcohol Use: No Hx Substance Use: No Hx Tobacco Use: No Physical Exam Vitals Physical Exam Const: No acute distress. Head: Atraumatic. Eyes: Normal Conjunctiva. ENT: Normal External Ears, Nose and Mouth. Neck: Full range of motion. No meningismus. Resp: Clear to auscultation bilaterally. Cardio: Regular rate and rhythm. Abd: Soft, non distended, normal bowel sounds, non tender. Skin: No petechiae or rashes. Back: No midline or flank tenderness. Ext: Left femur is edematous and tender, no skin violation, no cr epitus Neur: Awake limited exam due to her condition Psych: Unable to perform due to her condition Result Diagram: 09/13/1844 09/13/1844 Results 24 hrs Laboratory Tests Test 09/06/18 17:46 White Blood Count 8.5 10^3/ul Red Blood Count 4.30 10^6/ul Hemoglobin 12.3 g/dl Hematocrit 37.7 % Mean Corpuscular Volume 87.7 fl Mean Corpuscular Hemoglobin 28.6 pg Mean Corpuscular Hemoglobin Concent 32.6 g/dl Red Cell Distribution Width 14.6 % Platelet Count 343 10^3/UL Mean Platelet Volume 9.9 fl Immature Granulocytes % 0.500 % Neutrophils % 61.2 % Lymphocytes % 25.3 % Monocytes % 9.8 % Eosinophils % 2.7 % Basophils % 0.5 % Nucleated Red Blood Cells % 0.0 /100WBC Immature Granulocytes # 0.040 10^3/ul Neutrophils # 5.2 10^3/ul Lymphocytes # 2.2 10^3/ul Monocytes # 0.8 10^3/ul Eosinophils # 0.2 10^3/ul Basophils # 0.0 10^3/ul Nucleated Red Blood Cells # 0.0 10^3/ul Prothrombin Time 12.7 Sec Prothrombin Time Ratio 1.0 INR International Normalized Ratio 0.94 Activated Partial Thromboplast Time 32.3 Sec Sodium Level 139 mmol/L Potassium Level 3.5 mmol/L Chloride Level 107 mmol/L Carbon Dioxide Level 26 mmol/L Anion Gap 6 Blood Urea Nitrogen 18 mg/dl Creatinine 0.50 mg/dl Est Glomerular Filtrat Rate mL/min mL/min Glucose Level 120 mg/dl Calcium Level 8.9 mg/dl Troponin I < 0.012 ng/ml B-Type Natriuretic Peptide 253 PG/ML [facility] [address] Radiology Main Line: [phone] DIAGNOSTIC IMAGING REPORT Patient: IVY BRICENO : 1930 Age: 88 Sex: F MR #: [id number] DOS: 09/06/18 1626 Ordering MD: EJ GROVES MD Location: E/R Room/Bed: PROCEDURE: VA Venous Low Ext Left limited CLINICAL INDICATION: Left leg edema TECHNIQUE: Multiple sonographic images of the left lower extremity deep venous system was obtained utilizing grayscale, color-flow, compressive sonography and spectral doppler imaging with augmentation. The images were reviewed on a PACS workstation. Very limited exam secondary to patient inability to tolerate procedure. COMPARISON: US EXTREMITY 05/20/2018 FINDINGS: No thrombus within the left common femoral and proximal femoral vein. IMPRESSION: Patent left common femoral and proximal femoral veins. Remainder of the veins are not appreciated. RPTAT: BBGG Physician Mary Date Time Electronically viewed and signed by Jayant Salguero Physician on 09/06/2018 13:58 ME/ CC: EJ GROVES MD [id number] [facility] [id number] [place] [address] Radiology Main Line: [phone] DIAGNOSTIC IMAGING REPORT Patient: IVY BRICENO : 1930 Age: 88 Sex: F MR #: [id number] DOS: 09/06/18 1626 Ordering MD: EJ GROVES MD Location: E/R Room/Bed: PROCEDURE: XR right femur. CLINICAL INDICATION: Pain TECHNIQUE: 2 views of the right femur were obtained. COMPARISON: DR EXTREMITY 05/20/2018 FINDINGS: There are stable postsurgical changes of open reduction internal fixation of the left femur with intramedullary kelly and surgical screws. There is an acute, comminuted and the mildly displaced distal femoral fracture along the distal intramedullary kelly. There are osteoarthritic changes of the left hip and knee joints. Bones are osteopenic. Vascular calcifications are seen. IMPRESSION: 1. Acute, comminuted and mildly displaced distal femoral fracture along the distal aspect of the femoral intramedullary kelly. 2. Postsurgical changes of left femoral ORIF. 3. Left hip and knee joint osteoarthritis. 4. Osteopenia. RPTAT:HAJM Tammy Bales Physician Date Time Electronically viewed and signed by Tammy Bales Physician on 09/06/2018 17:25 RM/ CC: EJ GROVES MD [id number] [place] [address] Radiology Main Line: [phone] DIAGNOSTIC IMAGING REPORT Patient: IVY BRICENO : 1930 Age: 88 Sex: F MR #: [id number] DOS: 09/06/18 1626 Ordering MD: EJ GROVES MD Location: E/R Room/Bed: PROCEDURE: XR chest. CLINICAL INDICATION: Chest pain TECHNIQUE: Portable AP view of the chest was obtained. COMPARISON: 11/19/2017 FINDINGS: Lung volumes are small. Heart size is stable. Aorta is atherosclerotic. There is no pneumothorax or pleural effusion. There is no focal pulmonic consolidation. Cholecystectomy clips are seen in the right upper quadrant of the abdomen. IMPRESSION: 1. No acute pulmonary abnormality. 2. Aortic atherosclerosis. RPTAT:HAJM Physician Wanda Date Time Electronically viewed and signed by Physician Wanda on 09/06/2018 17:22 RM/ CC: EJ GROVES MD [id number] EKG: Read by emergency physician Rate/Rhythm: Normal Sinus Rhythm 95 beats/min QRS, ST, T-waves: No ST elevation, no T inversion,inferior Q's Impression: Abnormal EKG MEDICAL MAKING DECISION: The patient is a 88-year-old female, presenting with acute left femur fracture The differential diagnoses considered include but are not limited to pathologic fracture, internal derangement, osteoporosis Consultation: I discussed the patient with the on-call orthopedist Dr. Hines at 4 PM, who was made aware of the patient condition, the x-ray finding and he accepted the consult Departure Diagnosis: Primary Impression: Femur fracture, left Condition: Stable Comments I discussed the findings with the patient. I discussed the patient with Dr Mckinney, who was made aware of the lab, the treatment, the patient condition. He was in the ER to evaluate the patient. The patient is admitted to [facility] Disclaimer: Inadvertent spelling and grammatical errors are likely due to EHR/dictation software use and do not reflect on the overall quality of patient care. Also, please note that the electronic time recorded on this note does not necessarily reflect the actual time of the patient encounter. EJ GROVES MD Sep 06, 2018 16:21
[2018-09-06] MEDS ORDERED: ACET325T33 PO (17:30)
[2018-09-06] MEDS ORDERED: CARV3.1260 PO (17:31)
[2018-09-06] MEDS ORDERED: MEMA5TAB PO (17:33)
[2018-09-06] MEDS ORDERED: MEMA10TA PO (17:33)
[2018-09-06] MEDS ORDERED: HYDR-4011 PO (17:34)
[2018-09-06] MEDS ORDERED: GUAI5SYR2 PO (17:38)
[2018-09-06] MEDS ORDERED: ONDANSETRON (ODT) 4 MG TAB ODT STA (21:09)
[2018-09-06] MEDS ORDERED: HYDROCODONE/APAP (5/325) TAB PO ONE (21:30)
[2018-09-06 22:14] VITALS: BP 151/73; PULSE 106; RESP 20
[2018-09-07] VITALS (7 sets, daily range): BP systolic 100–156; BP diastolic 54–90; PULSE 90–106; RESP 18–20; Ht 162.6 cm; Wt 59.9 kg
[2018-09-07] MEDS ORDERED: GUAIFENESIN/DM 5ML CUP PO PRN (01:30)
[2018-09-07] MEDS ORDERED: ACETAMINOPHEN 325 MG TAB PO PRN ×2 (01:30)
[2018-09-07] MEDS ORDERED: HYDROCODONE/APAP (5/325) TAB PO SCH (01:30)
[2018-09-07] MEDS ORDERED: PENDING SANTYL ORDER FOR WOUND CARE XX PRN (04:00)
--- NOTE | 2018-09-07 05:14 | HP ---
DATE OF ADMISSION: 09/06/2018 CHIEF COMPLAINT: Left thigh swelling. HISTORY OF PRESENT ILLNESS: The patient is an 88-year-old female well known to me from previous admission. The patient has Alzheimer's dementia, diastolic heart failure, hypertension, dyslipidemia, hypothyroidism, osteoarthritis, also history of bilateral hip fracture status post surgery. The patient also has history of chronic soft tissue mass in the left thigh for the last several years. The patient is resident of a group home facility and was brought into ER because of left thigh swelling. The patient did not have any fall, no reported fever or chills. However, the patient's white count at group home [facility] was elevated. The patient did not have any cough or chest congestion. The patient did not have any leg edema. The patient denied any fever or chills. No reported vomiting. The patient remains awake, alert, however, confused. The patient was sent to ER and femur x-ray done in ER revealed acute comminuted and mildly displaced distal femoral fracture. The patient also had osteopenia and also left hip and knee joint osteoarthritis, postsurgical changes of left femoral artery. I spoke with Dr. Valencia from ER and requested him to notify Dr. Hines, who had seen her before. The patient could not provide any useful review of systems due to Alzheimer's disease. The patient, however, did not have any shortness of breath, chest congestion, abdominal distention or any acute skin rash. PAST MEDICAL HISTORY: As stated above. In addition, the patient was admitted back in 2018 for vomiting and had EEG done which revealed gastritis, esophagitis and antral polyp. During that admission, the patient's echocardiogram had revealed EF of 60%. PAST MEDICAL HISTORY: As stated above. ALLERGIES: 1. PENICILLIN. 2. LACTULOSE. 3. POSSIBLE LACTOSE. PAST SURGICAL HISTORY: Bilateral hip surgeries. FAMILY HISTORY: Noncontributory for patient's condition. SOCIAL HISTORY: No smoking or alcohol. The patient is a long-term resident of [facility]. PHYSICAL EXAMINATION: GENERAL: Revealed the patient to be awake, alert. VITAL SIGNS: Temperature 99, pulse 106, respiratory rate 20, blood pressure 151/73, O2 saturation 94% on room air. HEENT: Atraumatic, normocephalic head. Conjunctivae and lids are normal. Extraocular movements are grossly intact. Nose and ears are normal externally. Oropharynx is grossly intact. Suboptimal exam due to patient's dementia. NECK: No mass, no JVD, no carotid bruits. Supple. CHEST: Fairly clear. No use of accessory muscles. CARDIOVASCULAR: Regular rate and rhythm. S1, S2 normal. No murmur. ABDOMEN: Soft, nondistended, nontender. EXTREMITIES: No ankle edema. The patient has left thigh swelling. No exudate or erythema, although the patient does have pain when the left lower extremity is moved. SKIN: Without acute rash. NEUROLOGIC: The patient is awake, however, noncommunicative. LABORATORY DATA: Done in the ER, WBC 8.5, hemoglobin 12.3, platelet 343. Sodium 139, potassium 3.5, BUN 18, creatinine 0.5, glucose 120, calcium 8.9. Troponin negative. INR 0.9. DIAGNOSTIC DATA: Femur x-ray as in HPI. Venous Doppler is negative for DVT. Chest x-ray: No acute cardiopulmonary abnormality. IMPRESSION: 1. Acute comminuted and mildly displaced distal femoral fracture along the distal aspect of the femoral intramedullary kelly. The fracture seems to be due to osteopenia since the patient did not have any fall or any obvious injury. Dr. Hines has been notified by Dr. Valencia. We will wait for further recommendations. 2. Dementia. Continue Namenda. 3. Hypertension. Blood pressure is well controlled with Norvasc and carvedilol. 4. Daistolic heart failure. Continue Norvasc, carvedilol, Isordil and Lasix. 5. Hypothyroid : continue synthroid , recheck TSH 6. Osteopenia. Continue vitamin D. We will add Lovenox for deep venous thrombosis prophylaxis. Further recommendation will depend on the patient's hospital course and recommendation of Dr. Hines, orthopedics. Dictated By: FRANKY TA/REN Conf#: [id number] DID#: [id number] MTDFabiano
[2018-09-07] MEDS ORDERED: PANTOPRAZOLE (EC) 40 MG TAB PO SCH (06:00)
[2018-09-07] MEDS: traMADol 50 MG TAB PO PRN (06:29)
[2018-09-07] MEDS: LEVOTHYROXINE 137 MCG TAB PO SCH (06:29)
[2018-09-07] MEDS: FUROSEMIDE 20 MG TAB PO SCH ×2 (08:08→21:58)
[2018-09-07] MEDS: ISOSORBIDE DINITRATE 10 MG TAB PO SCH ×3 (08:08→22:11)
[2018-09-07] MEDS: POTASSIUM CHLORIDE (SR) 20 MEQ TAB PO SCH (08:08)
[2018-09-07] MEDS: CHOLECALCIFEROL 1,000 UNIT TAB PO SCH (08:08)
[2018-09-07] MEDS: ENOXAPARIN 30 MG/0.3 ML SYG SC SCH (08:09)
[2018-09-07] MEDS: MEMANTINE 10 MG TAB PO SCH (08:09)
[2018-09-07] MEDS: AMLODIPINE 10 MG TAB PO SCH (08:09)
[2018-09-07] MEDS: ASPIRIN 81 MG TAB PO SCH (08:09)
[2018-09-07] MEDS: DOCUSATE SODIUM 100 MG CAP PO SCH ×2 (08:11→21:59)
[2018-09-07] MEDS ORDERED: NON-FORMULARY/PATIENT OWN MED (Omeprazole* 40 MG) PO SCH (09:00)
[2018-09-07] MEDS ORDERED: HYDROCODONE/APAP (5/325) TAB PO PRN (09:30)
--- NOTE | 2018-09-07 15:20 | PN ---
Date/Time of Note Date/Time of Note DATE: 09/07/18 TIME: 15:17 Assessment/Plan VTE Prophylaxis Risk score (from [facility])>0 risk: 11 SCD applied (from [facility]): No SCD contraindicated: patient refusal Pharmacological prophylaxis: LMWH Lines/Catheters IV Catheter Type ([facility] Saline Lock Urinary Cath still in place: No Assessment/Plan Hospital Course Stable VS, pain is controlled with [place]. Assessment/Plan - Acute comminuted and mildly displaced distal femoral fracture along the distal aspect of the femoral intramedullary kelly. The fracture seems to be due to osteopenia since the patient did not have any fall or any obvious injury. Dr. Hines is following in orthopedic surgery consultation. - Hypertension. Continue Coreg and Norvasc. - Acute on chronic diastolic dysfunction congestive heart failure. Continue Lasix. - Dementia. Continue Namenda. - Osteopenia. Continue vitamin D. Further recommendations based on clinical course. Plan of care discussed with Dr. Mckinney Result Diagram: 09/07/18 0432 09/07/18 0432 Results 24hrs Laboratory Tests Test 09/06/18 17:46 09/07/18 04:32 White Blood Count 8.5 # 8.6 Red Blood Count 4.30 4.50 Hemoglobin 12.3 12.8 Hematocrit 37.7 38.9 Mean Corpuscular Volume 87.7 86.4 Mean Corpuscular Hemoglobin 28.6 L 28.4 L Mean Corpuscular Hemoglobin Concent 32.6 32.9 Red Cell Distribution Width 14.6 H 14.6 H Platelet Count 343 # 355 Mean Platelet Volume 9.9 10.3 Immature Granulocytes % 0.500 H 0.300 Neutrophils % 61.2 68.2 Lymphocytes % 25.3 21.3 Monocytes % 9.8 7.8 Eosinophils % 2.7 2.1 Basophils % 0.5 0.3 Nucleated Red Blood Cells % 0.0 0.0 Immature Granulocytes # 0.040 H 0.030 Neutrophils # 5.2 5.9 Lymphocytes # 2.2 1.8 Monocytes # 0.8 0.7 Eosinophils # 0.2 0.2 Basophils # 0.0 0.0 Nucleated Red Blood Cells # 0.0 0.0 Prothrombin Time 12.7 Prothrombin Time Ratio 1.0 INR International Normalized Ratio 0.94 Activated Partial Thromboplast Time 32.3 Sodium Level 139 142 Potassium Level 3.5 3.3 L Chloride Level 107 105 Carbon Dioxide Level 26 28 Anion Gap 6 9 Blood Urea Nitrogen 18 17 Creatinine 0.50 0.39 L Est Glomerular Filtrat Rate mL/min Glucose Level 120 113 Calcium Level 8.9 9.0 Troponin I < 0.012 B-Type Natriuretic Peptide 253 Exam/Review of Systems Exam Vitals Vital Signs Date Temp Pulse Resp B/P (MAP) Pulse Ox O2 O2 Flow FiO2 Time Delivery Rate 09/07/18 99.0 97 20 101/54 94 14:21 (70) 09/07/18 Room Air 13:16 Intake and Output 09/06/18 09/06/18 09/07/18 1515:00 23:00 07:00 IntakeIntake Total 60 ml BalanceBalance 60 ml Constitutional: alert, frail Neck: supple Respiratory: clear to auscultation Cardiovascular: nl pulses Gastrointestinal: soft, non-tender Extremities: normal pulses Results Results 24hrs Laboratory Tests Test 09/06/18 17:46 09/07/18 04:32 White Blood Count 8.5 # 8.6 Red Blood Count 4.30 4.50 Hemoglobin 12.3 12.8 Hematocrit 37.7 38.9 Mean Corpuscular Volume 87.7 86.4 Mean Corpuscular Hemoglobin 28.6 L 28.4 L Mean Corpuscular Hemoglobin Concent 32.6 32.9 Red Cell Distribution Width 14.6 H 14.6 H Platelet Count 343 # 355 Mean Platelet Volume 9.9 10.3 Immature Granulocytes % 0.500 H 0.300 Neutrophils % 61.2 68.2 Lymphocytes % 25.3 21.3 Monocytes % 9.8 7.8 Eosinophils % 2.7 2.1 Basophils % 0.5 0.3 Nucleated Red Blood Cells % 0.0 0.0 Immature Granulocytes # 0.040 H 0.030 Neutrophils # 5.2 5.9 Lymphocytes # 2.2 1.8 Monocytes # 0.8 0.7 Eosinophils # 0.2 0.2 Basophils # 0.0 0.0 Nucleated Red Blood Cells # 0.0 0.0 Prothrombin Time 12.7 Prothrombin Time Ratio 1.0 INR International Normalized Ratio 0.94 Activated Partial Thromboplast Time 32.3 Sodium Level 139 142 Potassium Level 3.5 3.3 L Chloride Level 107 105 Carbon Dioxide Level 26 28 Anion Gap 6 9 Blood Urea Nitrogen 18 17 Creatinine 0.50 0.39 L Est Glomerular Filtrat Rate mL/min Glucose Level 120 113 Calcium Level 8.9 9.0 Troponin I < 0.012 B-Type Natriuretic Peptide 253 Medications Medication Current Medications Acetaminophen (Tylenol Tab) 650 mg Q4H PRN PO MILD PAIN LEVEL 1-3; Start 09/07/18 at 01:30 Acetaminophen (Tylenol Tab) 650 mg Q6H PRN PO FOR TEMP>100.2; Start 09/07/18 at 01:30 Amlodipine Besylate (Norvasc) 10 mg DAILY PO Last administered on 09/07/18 08:09; Admin Dose 10 MG; Start 09/07/18 at 09:00 Aspirin (Aspirin) 81 mg DAILY PO Last administered on 09/07/18 08:09; Admin Dose 81 MG; Start 09/07/18 at 09:00 Atorvastatin Calcium (Lipitor) 20 mg QHS PO ; Start 09/07/18 at 21:00 Carvedilol (Coreg) 3.125 mg BID PO Last administered on 09/07/18 08:10; Admin Dose 3.125 MG; Start 09/07/18 at 09:00 Cholecalciferol (Vitamin D) 2,000 unit DAILY PO Last administered on 09/07/18 08:08; Admin Dose 2,000 UNIT; Start 09/07/18 at 09:00 Docusate Sodium (Colace) 100 mg BID PO Last administered on 09/07/18 08:11; Ad min Dose 100 MG; Start 09/07/18 at 09:00 Furosemide (Lasix) 20 mg BID PO Last administered on 09/07/18 08:08; Admin Dose 20 MG; Start 09/07/18 at 09:00 Guaifenesin/ Dextromethorphan (Robitussin Dm Liquid Cup) 10 ml Q6H PRN PO COUGH; Start 09/07/18 at 01:30 Isosorbide Dinitrate (Isordil) 10 mg TID PO Last administered on 09/07/18 13:11; Admin Dose 10 MG; Start 09/07/18 at 09:00 Levothyroxine Sodium (Synthroid) 137 mcg BEFORE BREAKFAST PO Last administered on 09/07/18 06:29; Admin Dose 137 MCG; Start 09/07/18 at 07:00 Memantine (Namenda) 5 mg QHS PO ; Start 09/07/18 at 21:00 Memantine (Namenda) 10 mg DAILY PO Last administered on 09/07/18at 08:09; Admin Dose 10 MG; Start 09/07/18 at 09:00 Potassium Chloride (Klor-Con 20) 20 meq DAILY PO Last administered on 09/07/18 08:08; Admin Dose 20 MEQ; Start 09/07/18 at 09:00 Tramadol HCl (Ultram) 50 mg Q12H PRN PO PAIN LEVEL 4-6/10 Last administered on 09/07/18 06:29; Admin Dose 50 MG; Start 09/07/18 at 01:30 Enoxaparin Sodium (Lovenox) 30 mg DAILY SC Last administered on 09/07/18 08:09; Admin Dose 30 MG; Start 09/07/18 at 09:00 Acetaminophen/ Hydrocodone Bitart ([place] (5/325)) 1 tab Q8H PRN PO PAIN LEVEL 7-10 Last administered on 09/07/18at 08:56; Admin Dose 1 TAB; Start 09/07/18 at 09:30 Pantoprazole (Protonix Tab) 40 mg DAILY@06 PO Last administered on 09/07/18 06:29; Admin Dose 40 MG; Start 09/07/18 at 06:00 Melatonin (Melatonin) 3 mg QHS PO ; Start 09/07/18 at 21:00 Miscellaneous Information (Pending Santyl Order For Wound Care) This patient manuel... PRN PRN XX WOUND CARE; Start 09/07/18 at 04:00 Acetaminophen/ Hydrocodone Bitart ([place] (7.5-325)) 1 tab Q6H PRN PO MODERATE PAIN LEVEL 4-6; Start 09/07/18 at 10:30 ALO GUERRERO Sep 07, 2018 15:20
--- NOTE | 2018-09-07 17:46 | CONS ---
DATE OF ADMISSION: 09/06/2018 DATE OF CONSULTATION: 09/07/2018 HISTORY OF PRESENT ILLNESS: The patient is an 88-year-old female, a resident of [facility] with multiple medical problems including Alzheimer dementia, heart failure, hypertension, dyslip idemia, osteoarthritis. She also had a fracture involving both hip and was treated with open reducti on and internal fixation utilizing long gamma nail on the left side. She was acting like she has a c onsiderable pain involving her left thigh starting from about 15 days ago according to the family mem bers and because of the worsening pain, radiologic examination of the left thigh was carried out rece ntly and she was found to have a fracture and was transferred into this facility. There was no known history of recent trauma. PHYSICAL EXAMINATION: My examination revealed an 88-year-old female who has a swelling and tendernes s over the distal portion of the left thigh. There were no gross deformities. However, range of mot ion of the left knee was limited with pain. The examination of the neurovascular condition was limit ed because of her Alzheimer disease. The x-rays of the left femur revealed that there is a long intr amedullary nail as a part of the long gamma nail system, which was used for the fixation of the inter trochanteric fracture of the left hip. There was a minimally displaced fracture noted over the dista l femur, proximal to the end of the long intramedullary device which was used for the fixation of the left hip fracture. DIAGNOSTIC IMPRESSION: Distal shaft fracture of the left femur is localized through the proximal sha ft of the left femur, proximal to the distal end of the preexisting intramedullary kelly, in good align ment. TREATMENT PLAN: Since there already is intramedullary nail in the femur and since this patient has n ot been ambulatory for the last 5 years according to the family members, we should try to manage the problems with the immobilization of the area using long leg brace with a dial lock at the knee joint. Her condition and recommended treatment was discussed with the family members and recommended long leg brace has been ordered. We will repeat the x-rays of the fracture site in the brace after the br niru is available. Dictated By: ZELDA SANTORO/REN Conf#: [id number] DID#: [id number] CC: FRANKY LEMUS MD;*EndCC*
[2018-09-07] MEDS: HYDROCODONE/APAP (7.5/325) TAB PO PRN (18:23)
[2018-09-07] MEDS ORDERED: NON-FORMULARY/PATIENT OWN MED (Melatonin 3 MG) PO SCH (21:00)
[2018-09-07] MEDS: ATORVASTATIN 20 MG TAB PO SCH (21:58)
[2018-09-07] MEDS: MELATONIN 3 MG TABLET PO SCH (21:58)
[2018-09-07] MEDS: MEMANTINE 5 MG TAB PO SCH (22:12)
[2018-09-08] MEDS: HYDROCODONE/APAP (7.5/325) TAB PO PRN (00:26)
[2018-09-08] MEDS: LEVOTHYROXINE 137 MCG TAB PO SCH (06:32)
[2018-09-08 08:41] VITALS: BP 128/65; PULSE 84; RESP 18
[2018-09-08] MEDS: DOCUSATE SODIUM 100 MG CAP PO SCH ×2 (09:02→21:39)
[2018-09-08] MEDS: POTASSIUM CHLORIDE (SR) 20 MEQ TAB PO SCH (09:02)
[2018-09-08] MEDS: ISOSORBIDE DINITRATE 10 MG TAB PO SCH ×3 (09:02→21:38)
[2018-09-08] MEDS: ASPIRIN 81 MG TAB PO SCH (09:02)
[2018-09-08] MEDS: AMLODIPINE 10 MG TAB PO SCH (09:02)
[2018-09-08] MEDS: FUROSEMIDE 20 MG TAB PO SCH ×2 (09:02→21:38)
[2018-09-08] MEDS: MEMANTINE 10 MG TAB PO SCH (09:02)
[2018-09-08] MEDS: CHOLECALCIFEROL 1,000 UNIT TAB PO SCH (09:02)
[2018-09-08] MEDS: ENOXAPARIN 30 MG/0.3 ML SYG SC SCH (09:04)
[2018-09-08] MEDS: LANSOPRAZOLE 30 MG CAP PO SCH (09:11)
--- NOTE | 2018-09-08 13:14 | PN ---
Date/Time of Note Date/Time of Note DATE: 09/08/18 TIME: 13:14 Assessment/Plan VTE Prophylaxis Risk score (from Ns)>0 risk: 9 SCD applied (from Ns): Yes Pharmacological prophylaxis: LMWH Lines/Catheters IV Catheter Type (from Nrsg): [place] Lock Urinary Cath still in place: Yes Reason Cath still needed: urinary retention Assessment/Plan Hospital Course Pt is very lethargic, patient complains of severe pain was giving him [place] last night. Assessment/Plan - Acute comminuted and mildly displaced distal femoral fracture along the distal aspect of the femoral intramedullary kelly. The fracture seems to be due to osteopenia since the patient did not have any fall or any obvious injury. Dr. Hines is following in orthopedic surgery consultation. Continue long-leg brace. - Hypertension. Continue Coreg and Norvasc. - Acute on chronic diastolic dysfunction congestive heart failure. Continue Lasix. - Dementia. Continue Namenda. - Osteopenia. Continue vitamin D. Further recommendations based on clinical course. Plan of care discussed with Dr. Mckinney Result Diagram: 09/07/1843109/07/18 0432 Exam/Review of Systems Exam Vitals Vital Signs Date Temp Pulse Resp B/P (MAP) Pulse Ox O2 O2 Flow FiO2 Time Delivery Rate 09/08/18 98.0 84 18 128/65 96 Room Air 08:41 (86) Intake and Output 09/07/18 09/07/18 09/08/18 1515:00 23:00 07:00 IntakeIntake Total 540 ml 120 ml BalanceBalance 540 ml 120 ml Exam Constitutional: alert, frail Neck: supple Respiratory: clear to auscultation Cardiovascular: nl pulses Gastrointestinal: soft, non-tender Extremities: normal pulses Medications Medication Current Medications Acetaminophen (Tylenol Tab) 650 mg Q4H PRN PO MILD PAIN LEVEL 1-3; Start 09/07/18 at 01:30 Acetaminophen (Tylenol Tab) 650 mg Q6H PRN PO FOR TEMP>100.2; Start 09/07/18 at 01:30 Amlodipine Besylate (Norvasc) 10 mg DAILY PO Last administered on 09/08/18at 09:02; Admin Dose 10 MG; Start 09/07/18 at 09:00 Aspirin (Aspirin) 81 mg DAILY PO Last administered on 09/08/18at 09:02; Admin Dose 81 MG; Start 09/07/18 at 09:00 Atorvastatin Calcium (Lipitor) 20 mg QHS PO Last administered on 09/07/18 21:58; Admin Dose 20 MG; Start 09/07/18 at 21:00 Carvedilol (Coreg) 3.125 mg BID PO Last administered on 09/08/18 09:03; Admin Dose 3.125 MG; Start 09/07/18 at 09:00 Cholecalciferol (Vitamin D) 2,000 unit DAILY PO Last administered on 09/08/18 09:02; Admin Dose 2,000 UNIT; Start 09/07/18 at 09:00 Docusate Sodium (Colace) 100 mg BID PO Last administered on 09/08/18 09:02; Admin Dose 100 MG; Start 09/07/18 at 09:00 Furosemide (Lasix) 20 mg BID PO Last administered on 09/08/18 09:02; Admin Dose 20 MG; Start 09/07/18 at 09:00 Guaifenesin/ Dextromethorphan (Robitussin Dm Liquid Cup) 10 ml Q6H PRN PO COUGH; Start 09/07/18 at 01:30 Isosorbide Dinitrate (Isordil) 10 mg TID PO Last administered on 09/08/18 09:02; Admin Dose 10 MG; Start 09/07/18 at 09:00 Levothyroxine Sodium (Synthroid) 137 mcg BEFORE BREAKFAST PO Last administered on 09/08/18 06:32; Admin Dose 137 MCG; Start 09/07/18 at 07:00 Memantine (Namenda) 5 mg QHS PO Last administered on 09/07/18 22:12; Admin Dose 5 MG; Start 09/07/18 at 21:00 Memantine (Namenda) 10 mg DAILY PO Last administered on 09/08/18 09:02; Admin Dose 10 MG; Start 09/07/18 at 09:00 Potassium Chloride (Klor-Con 20) 20 meq DAILY PO Last administered on 09/08/18 09:02; Admin Dose 20 MEQ; Start 09/07/18 at 09:00 Tramadol HCl (Ultram) 50 mg Q12H PRN PO PAIN LEVEL 4-6/10 Last administered on 09/07/18 06:29; Admin Dose 50 MG; Start 09/07/18 at 01:30 Enoxaparin Sodium (Lovenox) 30 mg DAILY SC Last administered on 09/08/18 09:04; Admin Dose 30 MG; Start 09/07/18 at 09:00 Melatonin (Melatonin) 3 mg QHS PO Last administered on 09/07/18 21:58; Admin Dose 3 MG; Start 09/07/18 at 21:00 Miscellaneous Information (Pending Santyl Order For Wound Care) This patient manuel... PRN PRN XX WOUND CARE; Start 09/07/18 at 04:00 Acetaminophen/ Hydrocodone Bitart ([place] (7.5-325)) 1 tab Q6H PRN PO MODERATE PAIN LEVEL 4-6 Last administered on 09/08/18 00:26; Admin Dose 1 TAB; Start 09/07/18 at 10:30 Lansoprazole (Prevacid) 30 mg DAILY@06 PO Last administered on 09/08/18 09:11; Admin Dose 30 MG; Start 09/08/18 at 06:30 ALO GUERRERO Sep 08, 2018 13:14
[2018-09-08 13:45] VITALS: BP 118/58; PULSE 82; RESP 18
[2018-09-08] MEDS: traMADol 50 MG TAB PO PRN ×2 (16:34→17:20)
[2018-09-08 20:00] VITALS: BP 136/63; PULSE 89; RESP 18
[2018-09-08] MEDS: MEMANTINE 5 MG TAB PO SCH (21:37)
[2018-09-08] MEDS: ATORVASTATIN 20 MG TAB PO SCH (21:37)
[2018-09-08] MEDS: MELATONIN 3 MG TABLET PO SCH (21:38)
[2018-09-09 02:00] VITALS: BP 108/65; PULSE 87; RESP 19
[2018-09-09] MEDS: LANSOPRAZOLE 30 MG CAP PO SCH (06:03)
[2018-09-09] MEDS: LEVOTHYROXINE 137 MCG TAB PO SCH (06:03)
[2018-09-09 07:48] VITALS: BP 110/71; PULSE 90; RESP 18
[2018-09-09] MEDS: DOCUSATE SODIUM 100 MG CAP PO SCH ×2 (09:05→21:13)
[2018-09-09] MEDS: MEMANTINE 10 MG TAB PO SCH (09:05)
[2018-09-09] MEDS: AMLODIPINE 10 MG TAB PO SCH (09:05)
[2018-09-09] MEDS: ISOSORBIDE DINITRATE 10 MG TAB PO SCH ×3 (09:05→21:13)
[2018-09-09] MEDS: CHOLECALCIFEROL 1,000 UNIT TAB PO SCH (09:06)
[2018-09-09] MEDS: ASPIRIN 81 MG TAB PO SCH (09:06)
[2018-09-09] MEDS: POTASSIUM CHLORIDE (SR) 20 MEQ TAB PO SCH (09:06)
[2018-09-09] MEDS: FUROSEMIDE 20 MG TAB PO SCH ×2 (09:06→21:13)
[2018-09-09] MEDS: ENOXAPARIN 30 MG/0.3 ML SYG SC SCH (09:07)
[2018-09-09 14:00] VITALS: BP 114/56; PULSE 89; RESP 18
--- NOTE | 2018-09-09 17:04 | DS ---
Date/Time of Note Date/Time of Note DATE: 09/09/18 TIME: 17:00 Discharge Summary Admission/Discharge Info Admit Date/Time Sep 06, 2018 at 18:58 Discharge Date/Time Patient Condition: Stable Hx of Present Illness The patient is an 88-year-old female well known to me from previous admission. The patient has Alzheimer's dementia, diastolic heart failure, hypertension, dyslipidemia, hypothyroidism, osteoarthritis, also history of bilateral hip fracture status post surgery. The patient also has history of chronic soft tissue mass in the left thigh for the last several years. The patient is resident of a nursing home facility and was brought into ER because of left thigh swelling. The patient did not have any fall, no reported fever or chills. However, the patient's white count at nursing home facility was elevated. The patient did not have any cough or chest congestion. The patient did not have any leg edema. The patient denied any fever or chills. No reported vomiting. The patient remains awake, alert, however, confused. The patient was sent to ER and femur x-ray done in ER revealed acute comminuted and mildly displaced distal femoral fracture. The patient also had osteopenia and also left hip and knee joint osteoarthritis, postsurgical changes of left femoral artery. I spoke with Dr. Valencia from ER and requested him to notify Dr. Hines, who had seen her before. The patient could not provide any useful review of systems due to Alzheimer's disease. The patient, however, did not have any shortness of breath, chest congestion, abdominal distention or any acute skin rash. Hospital Course - Acute comminuted and mildly displaced distal femoral fracture along the distal aspect of the femoral intramedullary kelly. The fracture seems to be due to osteopenia since the patient did not have any fall or any obvious injury. Dr. Hines is following in orthopedic surgery consultation. Continue long-leg brace. - Hypertension. Continue Coreg and Norvasc. - Acute on chronic diastolic dysfunction congestive heart failure. Continue Lasix. - Dementia. Continue Namenda. - Osteopenia. Continue vitamin D. Plan of care discussed with Dr. Mckinney Home Meds Reported Medications Guaifenesin-Dextromethorphan* (Robitussin* DM) 100MG/10MG/5ML Syrup, 10 ML PO Q6H PRN for COUGH, ML STOP DATE 09/17/18 09/06/18 Hydrocodone/Acetaminophen ([place] 5-325 Tablet) 1 Each Tablet, 1 EACH PO Q8H, TAB FOR PAIN LEVEL 7-01/1309/06/18 Memantine* (Namenda*) 10 Mg Tablet, 10 MG PO DAILY, #30 TAB 09/06/18 Memantine* (Namenda*) 5 Mg Tablet, 5 MG PO QHS, #30 TAB 09/06/18 Carvedilol* (Carvedilol*) 3.125 Mg Tablet, 3.125 MG PO BID, #60 TAB HOLD IF SBP<110 OR HR<60 09/06/18 Acetaminophen* (Tylenol*) 325 Mg Tablet, 650 MG PO Q4H PRN for MILD PAIN LEVEL 1-3, TAB 09/06/18 Tramadol Hcl* (Ultram*) 50 Mg Tablet, 50 MG PO Q12H PRN for PAIN LEVEL 4-09/13, TAB 05/20/18 Potassium Chloride* (Potassium Chloride*) 20 Meq Tablet.er, 20 MEQ PO DAILY, TAB.SA 05/20/18 Omeprazole* (Omeprazole*) 20 Mg Capsule.dr, 40 MG PO QAM, #30 CAP 05/20/18 Amlodipine Besylate* (Norvasc*) 10 Mg Tablet, 10 MG PO DAILY, TAB HOLD FOR SBP<110 OR MT<60 05/20/18 Melatonin (Melatonin) 3 Mg Tablet.sa, 3 MG PO HS, TAB.SA 05/20/18 Atorvastatin Calcium* (Atorvastatin Calcium*) 20 Mg Tablet, 20 MG PO QHS, #30 TAB 05/20/18 Levothyroxine Sodium* (Levothyroxine Sodium*) 137 Mcg Tablet, 137 MCG PO BEFORE BREAKFAST, #30 TAB 05/20/18 Furosemide* (Lasix*) 20 Mg Tablet, 20 MG PO BID, TAB HOLD FOR SBP<110 OR MT<60 05/20/18 Isosorbide Dinitrate* (Isosorbide Dinitrate*) 10 Mg Tablet, 10 MG PO TID, TAB HOLD FOR SBP<110 OR MT<60 05/20/18 Docusate Sodium* (Colace*) 100 Mg Capsule, 100 MG PO BID, #60 CAP 05/20/18 Cholecalciferol* (Vitamin D3*) 1,000 Unit Tablet, 2000 UNIT PO DAILY, TAB 05/20/18 Aspirin* (Aspirin* Chew) 81 Mg Tab.chew, 81 MG PO DAILY, TAB.CHEW 05/20/18 Acetaminophen* (Tylenol*) 325 Mg Tablet, 650 MG PO Q6H PRN for FOR TEMP>100.2, TAB 05/20/18 Discontinued Reported Medications Valproic Acid* (Valproic Acid* Liq) 250 Mg/5 Ml Syrup, 125 MG PO DAILY, ML 05/20/18 Sertraline Hcl* (Zoloft*) 25 Mg Tablet, 25 MG PO DAILY, #30 TAB 05/20/18 Memantine* (Namenda*) 10 Mg Tablet, 10 MG PO DAILY, #30 TAB 05/20/18 Rivastigmine* Patch (Exelon* Patch) 9.5 Mg/24 Hr Patch.td24, 1 PATCH TD DAILY, PATCH 05/20/18 Follow-up Plan Continue immobilization with a long brace, follow-up with Dr. Hines in 2 weeks. Primary Care Provider Troy Mckinney MD Time spent on discharge: > 30 minutes ALO GUERRERO Sep 09, 2018 17:04
[2018-09-09 20:02] VITALS: BP 109/60; PULSE 92; RESP 18
[2018-09-09] MEDS: MEMANTINE 5 MG TAB PO SCH (21:13)
[2018-09-09] MEDS: ATORVASTATIN 20 MG TAB PO SCH (21:13)
[2018-09-09] MEDS: MELATONIN 3 MG TABLET PO SCH (21:13)
[2018-09-10 02:15] VITALS: BP 127/62; PULSE 88; RESP 18
[2018-09-10] MEDS: LEVOTHYROXINE 137 MCG TAB PO SCH (06:07)
[2018-09-10] MEDS: LANSOPRAZOLE 30 MG CAP PO SCH (06:07)
--- NOTE | 2018-09-10 06:41 | PN ---
DATE: 09/09/2018 Comfortable with the long leg brace. Repeated x-rays in the brace revealed an acceptable alignment o f the fracture. Absolutely, no weightbearing at least for about 6 to 8 weeks. [facility] Further followup as an outpatient in about 2 weeks with repeated x-rays. Dictated By: ZELDA SANTORO/REN Conf#: [id number] DID#: [id number] CC: FRANKY LEMUS MD;*EndCC*
--- NOTE | 2018-09-10 06:49 | PN ---
Date/Time of Note Date/Time of Note DATE: 09/10/18 TIME: 06:48 Assessment/Plan VTE Prophylaxis Risk score (from Ns)>0 risk: 7 SCD applied (from [facility]): No SCD contraindicated: other Pharmacological prophylaxis: other Pharm contraindication: other Lines/Catheters IV Catheter Type (from Nrs): Peripheral IV Urinary Cath still in place: Yes Reason Cath still needed: urinary retention Assessment/Plan Assessment/Plan - Acute comminuted and mildly displaced distal femoral fracture along the distal aspect of the femoral intramedullary kelly. The fracture seems to be due to osteopenia since the patient did not have any fall or any obvious injury. Dr. Hines is following in orthopedic surgery consultation. Continue long-leg brace. - Hypertension. Continue Coreg and Norvasc. - Acute on chronic diastolic dysfunction congestive heart failure. Continue Lasix. - Dementia. Continue Namenda. - Osteopenia. Continue vitamin D. Further recommendations based on clinical course. Plan of care discussed with Dr. Mckinney Result Diagram: 09/07/18 0432 09/07/18 0432 Subjective 24 Hr Interval Summary Free Text/Dictation patient is alert urine is cloudy- will do UAand U c/s- fu afebrile -nad; vss - seems comfortable - will hold SNF transfer - no events overnight Exam/Review of Systems Exam Vitals Vital Signs Date Temp Pulse Resp B/P (MAP) Pulse Ox O2 O2 Flow FiO2 Time Delivery Rate 09/10/18 98.9 88 18 127/62 98 02:15 (83) 09/09/18 Room Air 14:00 Constitutional: alert Psych: nl mood/affect Eyes: nl lids, nl sclera ENMT: nl external ears & nose Neck: non-tender Cardiovascular: nl pulses, other (s1s2) Gastrointestinal: soft, non-tender Musculoskeletal: muscle weakness Extremities: normal pulses Neurological: confused Medications Medication Current Medications Acetaminophen (Tylenol Tab) 650 mg Q4H PRN PO MILD PAIN LEVEL 1-3; Start 09/07/18 at 01:30 Acetaminophen (Tylenol Tab) 650 mg Q6H PRN PO FOR TEMP>100.2; Start 09/07/18 at 01:30 Amlodipine Besylate (Norvasc) 10 mg DAILY PO Last administered on 09/09/18at 09:05; Admin Dose 10 MG; Start 09/07/18 at 09:00 Aspirin (Aspirin) 81 mg DAILY PO Last administered on 09/09/18 09:06; Admin Dose 81 MG; Start 09/07/18 at 09:00 Atorvastatin Calcium (Lipitor) 20 mg QHS PO Last administered on 09/09/18 21:13; Admin Dose 20 MG; Start 09/07/18 at 21:00 Carvedilol (Coreg) 3.125 mg BID PO Last administered on 09/09/18 21:13; Admin Dose 3.125 MG; Start 09/07/18 at 09:00 Cholecalciferol (Vitamin D) 2,000 unit DAILY PO Last administered on 09/09/18 09:06; Admin Dose 2,000 UNIT; Start 09/07/18 at 09:00 Docusate Sodium (Colace) 100 mg BID PO Last administered on 09/09/18 21:13; Admin Dose 100 MG; Start 09/07/18 at 09:00 Furosemide (Lasix) 20 mg BID PO Last administered on 09/09/18 21:13; Admin Dose 20 MG; Start 09/07/18 at 09:00 Guaifenesin/ Dextromethorphan (Robitussin Dm Liquid Cup) 10 ml Q6H PRN PO COUGH; Start 09/07/18 at 01:30 Isosorbide Dinitrate (Isordil) 10 mg TID PO Last administered on 09/09/18 21:13; Admin Dose 10 MG; Start 09/07/18 at 09:00 Levothyroxine Sodium (Synthroid) 137 mcg BEFORE BREAKFAST PO Last administered on 09/10/18 06:07; Admin Dose 137 MCG; Start 09/07/18 at 07:00 Memantine (Namenda) 5 mg QHS PO Last administered on 09/09/18 21:13; Admin Dose 5 MG; Start 09/07/18 at 21:00 Memantine (Namenda) 10 mg DAILY PO Last administered on 09/09/18 09:05; Admin Dose 10 MG; Start 09/07/18 at 09:00 Potassium Chloride (Klor-Con 20) 20 meq DAILY PO Last administered on 09/09/18 09:06; Admin Dose 20 MEQ; Start 09/07/18 at 09:00 Tramadol HCl (Ultram) 50 mg Q12H PRN PO PAIN LEVEL 4-6/10 Last administered on 09/08/18 17:20; Admin Dose 50 MG; Start 09/07/18 at 01:30 Enoxaparin Sodium (Lovenox) 30 mg DAILY SC Last administered on 09/09/18 09:07; Admin Dose 30 MG; Start 09/07/18 at 09:00 Melatonin (Melatonin) 3 mg QHS PO Last administered on 09/09/18 21:13; Admin Dose 3 MG; Start 09/07/18 at 21:00 [facility] This patient manuel... PRN PRN XX WOUND CARE; Start 09/07/18 at 04:00 Acetaminophen/ Hydrocodone Bitart ([place] (7.5-325)) 1 tab Q6H PRN PO MODERATE PAIN LEVEL 4-6 Last administered on 09/08/18 00:26; Admin Dose 1 TAB; Start 09/07/18 at 10:30 Lansoprazole (Prevacid) 30 mg DAILY@06 PO Last administered on 09/10/18 06:07; Admin Dose 30 MG; Start 09/08/18 at 06:30 TRAVIS MARTINS Sep 10, 2018 06:49
[2018-09-10 07:27] VITALS: BP 122/66; PULSE 84; RESP 18
[2018-09-10] MEDS: AMLODIPINE 10 MG TAB PO SCH (08:05)
[2018-09-10] MEDS: ISOSORBIDE DINITRATE 10 MG TAB PO SCH ×3 (08:06→21:22)
[2018-09-10] MEDS: ASPIRIN 81 MG TAB PO SCH (08:06)
[2018-09-10] MEDS: POTASSIUM CHLORIDE (SR) 20 MEQ TAB PO SCH (08:06)
[2018-09-10] MEDS: CHOLECALCIFEROL 1,000 UNIT TAB PO SCH (08:06)
[2018-09-10] MEDS: FUROSEMIDE 20 MG TAB PO SCH ×2 (08:06→21:22)
[2018-09-10] MEDS: MEMANTINE 10 MG TAB PO SCH (08:06)
[2018-09-10] MEDS: DOCUSATE SODIUM 100 MG CAP PO SCH ×2 (08:07→21:22)
[2018-09-10] MEDS: ENOXAPARIN 30 MG/0.3 ML SYG SC SCH (08:08)
[2018-09-10 14:00] VITALS: BP 106/58; PULSE 92; RESP 18
[2018-09-10 19:55] VITALS: BP 108/55; PULSE 99; RESP 16
[2018-09-10] MEDS: MELATONIN 3 MG TABLET PO SCH (21:21)
[2018-09-10] MEDS: MEMANTINE 5 MG TAB PO SCH (21:21)
[2018-09-10] MEDS: ATORVASTATIN 20 MG TAB PO SCH (21:25)
[2018-09-11] MEDS: LEVOFLOXACIN 250MG/D5W (PMX) 50 ML IVPB SCH (01:53)
[2018-09-11 02:00] VITALS: BP 116/56; PULSE 85; RESP 18
[2018-09-11] MEDS: LANSOPRAZOLE 30 MG CAP PO SCH (06:06)
[2018-09-11] MEDS: LEVOTHYROXINE 137 MCG TAB PO SCH (06:06)
[2018-09-11 08:35] VITALS: BP 135/63; PULSE 88; RESP 14
[2018-09-11] MEDS: ASPIRIN 81 MG TAB PO SCH (09:27)
[2018-09-11] MEDS: POTASSIUM CHLORIDE (SR) 20 MEQ TAB PO SCH (09:27)
[2018-09-11] MEDS: ISOSORBIDE DINITRATE 10 MG TAB PO SCH ×3 (09:27→20:19)
[2018-09-11] MEDS: MEMANTINE 10 MG TAB PO SCH (09:27)
[2018-09-11] MEDS: CHOLECALCIFEROL 1,000 UNIT TAB PO SCH (09:27)
[2018-09-11] MEDS: DOCUSATE SODIUM 100 MG CAP PO SCH ×2 (09:28→20:17)
[2018-09-11] MEDS: FUROSEMIDE 20 MG TAB PO SCH ×2 (09:28→20:19)
[2018-09-11] MEDS: AMLODIPINE 10 MG TAB PO SCH (09:28)
[2018-09-11] MEDS: ENOXAPARIN 30 MG/0.3 ML SYG SC SCH (09:35)
[2018-09-11 13:35] VITALS: BP 106/56; PULSE 94; RESP 15
--- NOTE | 2018-09-11 13:59 | PN ---
Date/Time of Note Date/Time of Note DATE: 09/11/18 TIME: 13:58 Assessment/Plan VTE Prophylaxis Risk score (from [facility] [place])>0 risk: 15 SCD applied (from [facility] [place]): No SCD contraindicated: other Pharmacological prophylaxis: other Pharm contraindication: other Lines/Catheters IV C[facility] Type ([facility] Peripheral IV Urinary Cath still in place: Yes Reason Cath still needed: urinary retention Assessment/Plan Assessment/Plan - UTI - On Rocephin - Acute comminuted and mildly displaced distal femoral fracture along the distal aspect of the femoral intramedullary kelly. The fracture seems to be due to osteopenia since the patient did not have any fall or any obvious injury. Dr. Hines is following in orthopedic surgery consultation. Continue long- leg brace. - Hypertension. Continue Coreg and Norvasc. - Acute on chronic diastolic dysfunction congestive heart failure. Continue Lasix. - Dementia. Continue Namenda. - Osteopenia. Continue vitamin D. Further recommendations based on clinical course. Plan of care discussed with Dr. Mckinney Result Diagram: 09/11/18 0618 09/11/18 0618 Results 24hrs Laboratory Tests Test 09/11/18 06:18 White Blood Count 8.7 Red Blood Count 4.40 Hemoglobin 12.4 Hematocrit 38.4 Mean Corpuscular Volume 87.3 Mean Corpuscular Hemoglobin 28.2 L Mean Corpuscular Hemoglobin Concent 32.3 Red Cell Distribution Width 14.5 Platelet Count 335 Mean Platelet Volume 10.6 H Immature Granulocytes % 0.300 Neutrophils % 65.4 Lymphocytes % 21.9 Monocytes % 8.6 Eosinophils % 3.5 Basophils % 0.3 Nucleated Red Blood Cells % 0.0 Immature Granulocytes # 0.030 Neutrophils # 5.7 Lymphocytes # 1.9 Monocytes # 0.8 Eosinophils # 0.3 Basophils # 0.0 Nucleated Red Blood Cells # 0.0 Sodium Level 141 Potassium Level 3.9 Chloride Level 103 Carbon Dioxide Level 31 Anion Gap 7 Blood Urea Nitrogen 15 Creatinine 0.50 Est Glomerular Filtrat Rate mL/min Glucose Level 127 Calcium Level 9.0 Subjective 24 Hr Interval Summary Free Text/Dictation nad afebrile no events overnight dw staff Eyes: no complaints ENT: no complaints Respiratory: no complaints Cardiovascular: no complaints Gastrointestinal: no complaints Skin: no complaints Neurologic: no complaints Exam/Review of Systems Exam Vitals Vital Signs Date Temp Pulse Resp B/P (MAP) Pulse Ox O2 O2 Flow FiO2 Time Delivery Rate 09/11/18 99.4 94 15 106/56 94 Room Air 13:35 (73) Intake and Output 09/10/18 09/10/18 09/11/18 1515:00 23:00 07:00 IntakeIntake Total 240 ml 120 ml 50 ml OutputOutput Total 950 ml 550 ml BalanceBalance -710 ml 120 ml -500 ml Constitutional: alert, well developed Psych: nl mood/affect Eyes: nl lids, nl sclera ENMT: nl external ears & nose Neck: non-tender Respiratory: clear to auscultation Cardiovascular: nl pulses, other (s1s2) Gastrointestinal: soft, non-tender Musculoskeletal: muscle weakness Extremities: normal pulses Neurological: confused Results Results 24hrs Laboratory Tests Test 09/11/18 06:18 White Blood Count 8.7 Red Blood Count 4.40 Hemoglobin 12.4 Hematocrit 38.4 Mean Corpuscular Volume 87.3 Mean Corpuscular Hemoglobin 28.2 L Mean Corpuscular Hemoglobin Concent 32.3 Red Cell Distribution Width 14.5 Platelet Count 335 Mean Platelet Volume 10.6 H Immature Granulocytes % 0.300 Neutrophils % 65.4 Lymphocytes % 21.9 Monocytes % 8.6 Eosinophils % 3.5 Basophils % 0.3 Nucleated Red Blood Cells % 0.0 Immature Granulocytes # 0.030 Neutrophils # 5.7 Lymphocytes # 1.9 Monocytes # 0.8 Eosinophils # 0.3 Basophils # 0.0 Nucleated Red Blood Cells # 0.0 Sodium Level 141 Potassium Level 3.9 Chloride Level 103 Carbon Dioxide Level 31 Anion Gap 7 Blood Urea Nitrogen 15 Creatinine 0.50 Est Glomerular Filtrat Rate mL/min Glucose Level 127 Calcium Level 9.0 Medications Medication Current Medications Acetaminophen (Tylenol Tab) 650 mg Q4H PRN PO MILD PAIN LEVEL 1-3; Start 09/07/18 at 01:30 Acetaminophen (Tylenol Tab) 650 mg Q6H PRN PO FOR TEMP>100.2; Start 09/07/18 at 01:30 Amlodipine Besylate (Norvasc) 10 mg DAILY PO Last administered on 09/11/18at 09:28; Admin Dose 10 MG; Start 09/07/18 at 09:00 Aspirin (Aspirin) 81 mg DAILY PO Last administered on 09/11/18at 09:27; Admin Dose 81 MG; Start 09/07/18 at 09:00 Atorvastatin Calcium (Lipitor) 20 mg QHS PO Last administered on 09/10/18 21:25; Admin Dose 20 MG; Start 09/07/18 at 21:00 Carvedilol (Coreg) 3.125 mg BID PO Last administered on 09/11/18 09:28; Admin Dose 3.125 MG; Start 09/07/18 at 09:00 Cholecalciferol (Vitamin D) 2,000 unit DAILY PO Last administered on 09/11/18 09:27; Admin Dose 2,000 UNIT; Start 09/07/18 at 09:00 Docusate Sodium (Colace) 100 mg BID PO Last administered on 09/11/18 09:28; Admin Dose 100 MG; Start 09/07/18 at 09:00 Furosemide (Lasix) 20 mg BID PO Last administered on 09/11/18 09:28; Admin Dose 20 MG; Start 09/07/18 at 09:00 Guaifenesin/ Dextromethorphan (Robitussin Dm Liquid Cup) 10 ml Q6H PRN PO COUGH; Start 09/07/18 at 01:30 Isosorbide Dinitrate (Isordil) 10 mg TID PO Last administered on 09/11/18 13:21; Admin Dose 10 MG; Start 09/07/18 at 09:00 Levothyroxine Sodium (Synthroid) 137 mcg BEFORE BREAKFAST PO Last administered on 09/11/18 06:06; Admin Dose 137 MCG; Start 09/07/18 at 07:00 Memantine (Namenda) 5 mg QHS PO Last administered on 09/10/18 21:21; Admin Dose 5 MG; Start 09/07/18 at 21:00 Memantine (Namenda) 10 mg DAILY PO Last administered on 09/11/18 09:27; Admin Dose 10 MG; Start 09/07/18 at 09:00 Potassium Chloride (Klor-Con 20) 20 meq DAILY PO Last administered on 09/11/18 09:27; Admin Dose 20 MEQ; Start 09/07/18 at 09:00 Tramadol HCl (Ultram) 50 mg Q12H PRN PO PAIN LEVEL 4-6/10 Last administered on 09/08/18 17:20; Admin Dose 50 MG; Start 09/07/18 at 01:30 Enoxaparin Sodium (Lovenox) 30 mg DAILY SC Last administered on 09/11/18 09:35; Admin Dose 30 MG; Start 09/07/18 at 09:00 Melatonin (Melatonin) 3 mg QHS PO Last administered on 09/10/18 21:21; Admin Dose 3 MG; Start 09/07/18 at 21:00 Miscellaneous Information (Pending Santyl Order For Wound Care) This patient manuel... PRN PRN XX WOUND CARE; Start 09/07/18 at 04:00 Acetaminophen/ Hydrocodone Bitart ([place] (7.5-325)) 1 tab Q6H PRN PO MODERATE PAIN LEVEL 4-6 Last administered on 09/08/18 00:26; Admin Dose 1 TAB; Start 09/07/18 at 10:30 Lansoprazole (Prevacid) 30 mg DAILY@06 PO Last administered on 09/11/18 06:06; Admin Dose 30 MG; Start 09/08/18 at 06:30 Levofloxacin/ Dextrose 50 ml @ 50 mls/hr Q24H IVPB Last administered on 09/11/18 01:53; Admin Dose 50 MLS/HR; Start 09/11/18 at 01:30 TRAVIS MARTINS Sep 11, 2018 13:59
[2018-09-11 20:00] VITALS: BP 128/69; PULSE 87; RESP 17
[2018-09-11] MEDS: ATORVASTATIN 20 MG TAB PO SCH (20:17)
[2018-09-11] MEDS: MEMANTINE 5 MG TAB PO SCH (20:18)
[2018-09-11] MEDS: MELATONIN 3 MG TABLET PO SCH (20:20)
[2018-09-12] MEDS: LEVOFLOXACIN 250MG/D5W (PMX) 50 ML IVPB SCH (00:50)
[2018-09-12 02:00] VITALS: BP 122/72; PULSE 86; RESP 18
[2018-09-12] MEDS: LANSOPRAZOLE 30 MG CAP PO SCH (05:23)
[2018-09-12] MEDS: LEVOTHYROXINE 137 MCG TAB PO SCH (05:23)
[2018-09-12 07:25] VITALS: BP 112/63; PULSE 84; RESP 17
[2018-09-12] MEDS: ISOSORBIDE DINITRATE 10 MG TAB PO SCH ×3 (09:04→20:29)
[2018-09-12] MEDS: MEMANTINE 10 MG TAB PO SCH (09:04)
[2018-09-12] MEDS: POTASSIUM CHLORIDE (SR) 20 MEQ TAB PO SCH (09:04)
[2018-09-12] MEDS: CHOLECALCIFEROL 1,000 UNIT TAB PO SCH (09:04)
[2018-09-12] MEDS: ASPIRIN 81 MG TAB PO SCH (09:05)
[2018-09-12] MEDS: FUROSEMIDE 20 MG TAB PO SCH ×2 (09:05→20:30)
[2018-09-12] MEDS: AMLODIPINE 10 MG TAB PO SCH (09:05)
[2018-09-12] MEDS: DOCUSATE SODIUM 100 MG CAP PO SCH ×2 (09:05→20:29)
[2018-09-12] MEDS: ENOXAPARIN 30 MG/0.3 ML SYG SC SCH (09:09)
--- NOTE | 2018-09-12 10:04 | PN ---
Date/Time of Note Date/Time of Note DATE: 09/12/18 TIME: 10:03 Assessment/Plan VTE Prophylaxis Risk score (from [facility] [place])>0 risk: 12 SCD applied (from [facility] [place]): No SCD contraindicated: other Pharmacological prophylaxis: other Pharm contraindication: other Lines/Catheters [facility] C[facility] Type ([facility] Saline Lock Urinary Cath still in place: Yes Reason Cath still needed: urinary retention Assessment/Plan Assessment/Plan - UTI - On Rocephin - Acute comminuted and mildly displaced distal femoral fracture along the distal aspect of the femoral intramedullary kelly. The fracture seems to be due to osteopenia since the patient did not have any fall or any obvious injury. Dr. Hines is following in orthopedic surgery consultation. Continue long- leg brace. - Hypertension. Continue Coreg and Norvasc. - Acute on chronic diastolic dysfunction congestive heart failure. Continue Lasix. - Dementia. Continue Namenda. - Osteopenia. Continue vitamin D. Further recommendations based on clinical course. Plan of care discussed with Dr. Mckinney Result Diagram: 09/11/1861709/11/1818 Subjective 24 Hr Interval Summary Free Text/Dictation nad; vss Urine getting clear; afebrile seems comfortable no new events reported last night dw staff Exam/Review of Systems Exam Vitals Vital Signs Date Temp Pulse Resp B/P (MAP) Pulse Ox O2 O2 Flow FiO2 Time Delivery Rate 09/12/18 98.3 84 17 112/63 96 07:25 (79) 09/11/18 Room Air 13:35 Intake and Output 09/11/18 09/11/18 09/12/18 1515:00 23:00 07:00 IntakeIntake Total 70 ml 250 ml OutputOutput Total 400 ml 600 ml BalanceBalance -330 ml -350 ml Constitutional: alert, well developed Psych: nl mood/affect Eyes: nl lids, nl sclera ENMT: nl external ears & nose Neck: non-tender Respiratory: clear to auscultation Cardiovascular: nl pulses, other (s1s2) Gastrointestinal: soft, non-tender Musculoskeletal: muscle weakness Extremities: normal pulses Neurological: confused Lymph: nontender Medications Medication Current Medications Acetaminophen (Tylenol Tab) 650 mg Q4H PRN PO MILD PAIN LEVEL 1-3; Start at 01:30 Acetaminophen (Tylenol Tab) 650 mg Q6H PRN PO FOR TEMP>100.2; Start 09/07/18 at 01:30 Amlodipine Besylate (Norvasc) 10 mg DAILY PO Last administered on 09/12/18 09:05; Admin Dose 10 MG; Start 09/07/18 at 09:00 Aspirin (Aspirin) 81 mg DAILY PO Last administered on 09/12/18 09:05; Admin Dose 81 MG; Start 09/07/18 at 09:00 Atorvastatin Calcium (Lipitor) 20 mg QHS PO Last administered on 09/11/18 20:17; Admin Dose 20 MG; Start 09/07/18 at 21:00 Carvedilol (Coreg) 3.125 mg BID PO Last administered on 09/12/18 09:06; Admin Dose 3.125 MG; Start 09/07/18 at 09:00 Cholecalciferol (Vitamin D) 2,000 unit DAILY PO Last administered on 09/12/18 09:04; Admin Dose 2,000 UNIT; Start 09/07/18 at 09:00 Docusate Sodium (Colace) 100 mg BID PO Last administered on 09/12/18 09:05; Admin Dose 100 MG; Start 09/07/18 at 09:00 Furosemide (Lasix) 20 mg BID PO Last administered on 09/12/18 09:05; Admin Dose 20 MG; Start 09/07/18 at 09:00 Guaifenesin/ Dextromethorphan (Robitussin Dm Liquid Cup) 10 ml Q6H PRN PO COUGH; Start 09/07/18 at 01:30 Isosorbide Dinitrate (Isordil) 10 mg TID PO Last administered on 09/12/18 09:04; Admin Dose 10 MG; Start 09/07/18 at 09:00 Levothyroxine Sodium (Synthroid) 137 mcg BEFORE BREAKFAST PO Last administered on 09/12/18 05:23; Admin Dose 137 MCG; Start 09/07/18 at 07:00 Memantine (Namenda) 5 mg QHS PO Last administered on 09/11/18 20:18; Admin Dose 5 MG; Start 09/07/18 at 21:00 Memantine (Namenda) 10 mg DAILY PO Last administered on 09/12/18 09:04; Admin D ose 10 MG; Start 09/07/18 at 09:00 Potassium Chloride (Klor-Con 20) 20 meq DAILY PO Last administered on 09/12/18 09:04; Admin Dose 20 MEQ; Start 09/07/18 at 09:00 Tramadol HCl (Ultram) 50 mg Q12H PRN PO PAIN LEVEL 4-6/10 Last administered on 09/08/18 17:20; Admin Dose 50 MG; Start 09/07/18 at 01:30 Enoxaparin Sodium (Lovenox) 30 mg DAILY SC Last administered on 09/12/18 09:09; Admin Dose 30 MG; Start 09/07/18 at 09:00 Melatonin (Melatonin) 3 mg QHS PO Last administered on 09/11/18 20:20; Admin Dose 3 MG; Start 09/07/18 at 21:00 [facility]isc[facility] This patient manuel... PRN PRN XX WOUND CARE; Start 09/07/18 at 04:00 Acetaminophen/ Hydrocodone Bitart ([place] (7.5-325)) 1 tab Q6H PRN PO MODERATE PAIN LEVEL 4-6 Last administered on 09/08/18 00:26; Admin Dose 1 TAB; Start 09/07/18 at 10:30 Lansoprazole (Prevacid) 30 mg DAILY@06 PO Last administered on 09/12/18 05:23; Admin Dose 30 MG; Start 09/08/18 at 06:30 Levofloxacin/ Dextrose 50 ml @ 50 mls/hr Q24H IVPB Last administered on 09/12/18 00:50; Admin Dose 50 MLS/HR; Start 09/11/18 at 01:30 TRAVIS MARTINS Sep 12, 2018 10:04
[2018-09-12 13:36] VITALS: BP 105/54; PULSE 82; RESP 19
[2018-09-12 20:14] VITALS: BP 124/72; PULSE 70; RESP 18
[2018-09-12] MEDS: MELATONIN 3 MG TABLET PO SCH (20:30)
[2018-09-12] MEDS: ATORVASTATIN 20 MG TAB PO SCH (20:30)
[2018-09-12] MEDS: MEMANTINE 5 MG TAB PO SCH (20:41)
[2018-09-13] MEDS: LEVOFLOXACIN 250MG/D5W (PMX) 50 ML IVPB SCH (01:00)
[2018-09-13 02:08] VITALS: BP 142/78; PULSE 88; RESP 18
[2018-09-13] MEDS: LANSOPRAZOLE 30 MG CAP PO SCH (06:07)
[2018-09-13] MEDS: LEVOTHYROXINE 137 MCG TAB PO SCH (06:07)
[2018-09-13 07:07] VITALS: BP 140/65; PULSE 88; RESP 16
[2018-09-13] MEDS: FUROSEMIDE 20 MG TAB PO SCH ×2 (08:53→21:48)
[2018-09-13] MEDS: CHOLECALCIFEROL 1,000 UNIT TAB PO SCH (08:53)
[2018-09-13] MEDS: ASPIRIN 81 MG TAB PO SCH (08:53)
[2018-09-13] MEDS: MEMANTINE 10 MG TAB PO SCH (08:54)
[2018-09-13] MEDS: ISOSORBIDE DINITRATE 10 MG TAB PO SCH ×3 (08:54→21:49)
[2018-09-13] MEDS: AMLODIPINE 10 MG TAB PO SCH (08:54)
[2018-09-13] MEDS: POTASSIUM CHLORIDE 20 MEQ POWDER FOR ORAL SOLN PO SCH (09:00)
[2018-09-13] MEDS: DOCUSATE SODIUM 10 MG/ML (10ML CUP) PO SCH ×3 (09:00→22:23)
[2018-09-13] MEDS: ENOXAPARIN 30 MG/0.3 ML SYG SC SCH (09:16)
[2018-09-13 14:32] VITALS: BP 112/60; PULSE 87; RESP 75
--- NOTE | 2018-09-13 17:54 | PN ---
Date/Time of Note Date/Time of Note DATE: 09/13/18 TIME: 17:54 Assessment/Plan VTE Prophylaxis Risk score (from Ns)>0 risk: 12 SCD applied (from Ns): Yes Pharmacological prophylaxis: LMWH Lines/Catheters IV Catheter Type (from Nrs): Saline Lock Urinary Cath still in place: Yes Reason Cath still needed: urinary retention Assessment/Plan Hospital Course Patient is undergoing treatment for urinary tract infection, case management is working on DC planning. Assessment/Plan -Proteus UTI, continue meropenem - Acute comminuted and mildly displaced distal femoral fracture along the distal aspect of the femoral intramedullary kelly. The fracture seems to be due to osteopenia since the patient did not have any fall or any obvious injury. Dr. Hines is following in orthopedic surgery consultation. Continue long-leg brace. - Hypertension. Continue Coreg and Norvasc. - Acute on chronic diastolic dysfunction congestive heart failure. Continue Lasix. - Dementia. Continue Namenda. - Osteopenia. Continue vitamin D. Further recommendations based on clinical course. Plan of care discussed with Dr. Mckinney Result Diagram: 09/13/1844 09/13/1844 Results 24hrs Laboratory Tests Test 09/13/18 05:44 White Blood Count 7.7 Red Blood Count 4.33 Hemoglobin 12.4 Hematocrit 38.4 Mean Corpuscular Volume 88.7 Mean Corpuscular Hemoglobin 28.6 L Mean Corpuscular Hemoglobin Concent 32.3 Red Cell Distribution Width 14.3 Platelet Count 312 Mean Platelet Volume 10.4 Immature Granulocytes % 0.700 H Neutrophils % 56.0 Lymphocytes % 27.2 Monocytes % 10.7 Eosinophils % 5.0 Basophils % 0.4 Nucleated Red Blood Cells % 0.0 Immature Granulocytes # 0.050 H Neutrophils # 4.3 Lymphocytes # 2.1 Monocytes # 0.8 Eosinophils # 0.4 Basophils # 0.0 Nucleated Red Blood Cells # 0.0 Sodium Level 139 Potassium Level 3.9 Chloride Level 103 Carbon Dioxide Level 30 Anion Gap 6 Blood Urea Nitrogen 16 Creatinine 0.47 Est Glomerular Filtrat Rate mL/min Glucose Level 126 Calcium Level 9.3 Exam/Review of Systems Exam Vitals Vital Signs Date Temp Pulse Resp B/P (MAP) Pulse Ox O2 O2 Flow FiO2 Time Delivery Rate 09/13/18 97.7 87 75 112/60 98 Room Air 14:32 (77) Intake and Output 09/12/18 09/12/18 09/13/18 1515:00 23:00 07:00 IntakeIntake Total 200 ml 120 ml 50 ml OutputOutput Total 300 ml BalanceBalance 200 ml -180 ml 50 ml Exam Constitutional: alert, frail Neck: supple Respiratory: clear to auscultation Cardiovascular: nl pulses Gastrointestinal: soft, non-tender Extremities: normal pulses Results Results 24hrs Laboratory Tests Test 09/13/18 05:44 White Blood Count 7.7 Red Blood Count 4.33 Hemoglobin 12.4 Hematocrit 38.4 Mean Corpuscular Volume 88.7 Mean Corpuscular Hemoglobin 28.6 L Mean Corpuscular Hemoglobin Concent 32.3 Red Cell Distribution Width 14.3 Platelet Count 312 Mean Platelet Volume 10.4 Immature Granulocytes % 0.700 H Neutrophils % 56.0 Lymphocytes % 27.2 Monocytes % 10.7 Eosinophils % 5.0 Basophils % 0.4 Nucleated Red Blood Cells % 0.0 Immature Granulocytes # 0.050 H Neutrophils # 4.3 Lymphocytes # 2.1 Monocytes # 0.8 Eosinophils # 0.4 Basophils # 0.0 Nucleated Red Blood Cells # 0.0 Sodium Level 139 Potassium Level 3.9 Chloride Level 103 Carbon Dioxide Level 30 Anion Gap 6 Blood Urea Nitrogen 16 Creatinine 0.47 Est Glomerular Filtrat Rate mL/min Glucose Level 126 Calcium Level 9.3 Medications Medication Current Medications Acetaminophen (Tylenol Tab) 650 mg Q4H PRN PO MILD PAIN LEVEL 1-3; Start 09/07/18 at 01:30 Acetaminophen (Tylenol Tab) 650 mg Q6H PRN PO FOR TEMP>100.2; Start 09/07/18 at 01:30 Amlodipine Besylate (Norvasc) 10 mg DAILY PO Last administered on 09/13/18at 08:54; Admin Dose 10 MG; Start 09/07/18 at 09:00 Aspirin (Aspirin) 81 mg DAILY PO Last administered on 09/13/18at 08:53; Admin Dose 81 MG; Start 09/07/18 at 09:00 Atorvastatin Calcium (Lipitor) 20 mg QHS PO Last administered on 09/12/18at 20:30; Admin Dose 20 MG; Start 09/07/18 at 21:00 Carvedilol (Coreg) 3.125 mg BID PO Last administered on 09/13/18at 08:54; Admin Dose 3.125 MG; Start 09/07/18 at 09:00 Cholecalciferol (Vitamin D) 2,000 unit DAILY PO Last administered on 09/13/18 08:53; Admin Dose 2,000 UNIT; Start 09/07/18 at 09:00 Furosemide (Lasix) 20 mg BID PO Last administered on 09/13/18 08:53; Admin Dose 20 MG; Start 09/07/18 at 09:00 Guaifenesin/ Dextromethorphan (Robitussin Dm Liquid Cup) 10 ml Q6H PRN PO COUGH; Start 09/07/18 at 01:30 Isosorbide Dinitrate (Isordil) 10 mg TID PO Last administered on 09/13/18 12:33; Admin Dose 10 MG; Start 09/07/18 at 09:00 Levothyroxine Sodium (Synthroid) 137 mcg BEFORE BREAKFAST PO Last administered on 09/13/18 06:07; Admin Dose 137 MCG; Start 09/07/18 at 07:00 Memantine (Namenda) 5 mg QHS PO Last administered on 09/12/18 20:41; Admin Dose 5 MG; Start 09/07/18 at 21:00 Memantine (Namenda) 10 mg DAILY PO Last administered on 09/13/18 08:54; Admin Dose 10 MG; Start 09/07/18 at 09:00 Tramadol HCl (Ultram) 50 mg Q12H PRN PO PAIN LEVEL 4-6/10 Last administered on 09/08/18 17:20; Admin Dose 50 MG; Start 09/07/18 at 01:30 Enoxaparin Sodium (Lovenox) 30 mg DAILY SC Last administered on 09/13/18 09:16; Admin Dose 30 MG; Start 09/07/18 at 09:00 Melatonin (Melatonin) 3 mg QHS PO Last administered on 09/12/18 20:30; Admin Dose 3 MG; Start 09/07/18 at 21:00 Miscellaneous Information (Pending Santyl Order For Wound Care) This patient manuel... PRN PRN XX WOUND CARE; Start 09/07/18 at 04:00 Acetaminophen/ Hydrocodone Bitart ([place] (7.5-325)) 1 tab Q6H PRN PO MODERATE PAIN LEVEL 4-6 Last administered on 09/08/18at 00:26; Admin Dose 1 TAB; Start 09/07/18 at 10:30 Lansoprazole (Prevacid) 30 mg DAILY@06 PO Last administered on 09/13/18at 06:07; Admin Dose 30 MG; Start 09/08/18 at 06:30 Docusate Sodium (Colace Liquid Cup) 100 mg BID PO ; Start 09/13/18 at 09:00 Potassium Chloride (Potassium Chloride Pwd/Soln) 20 meq DAILY PO ; Start 09/13/18 at 09:00 Meropenem/Sodium Chloride 50 ml @ 100 mls/hr Q12 IVPB ; Start 09/13/18 at 21:00; Stop 09/18/18 at 09:29 ALO GUERRERO Sep 13, 2018 17:54
[2018-09-13 19:44] VITALS: BP 116/63; PULSE 82; RESP 18
[2018-09-13] MEDS: MEROPENEM 1 GM/50ML(PMX) 50 ML IVPB SCH (21:47)
[2018-09-13] MEDS: MEMANTINE 5 MG TAB PO SCH (21:48)
[2018-09-13] MEDS: MELATONIN 3 MG TABLET PO SCH (21:48)
[2018-09-13] MEDS: ATORVASTATIN 20 MG TAB PO SCH (21:49)
[2018-09-13] MEDS ORDERED: DIPHENHYDRAMINE 50 MG INJ IV PRN (22:00)
[2018-09-14 01:59] VITALS: BP 118/71; PULSE 74; RESP 18
[2018-09-14] MEDS: LANSOPRAZOLE 30 MG CAP PO SCH (06:00)
[2018-09-14] MEDS: LEVOTHYROXINE 137 MCG TAB PO SCH (06:02)
[2018-09-14 08:01] VITALS: BP 125/64; PULSE 83; RESP 18
[2018-09-14] MEDS: AMLODIPINE 10 MG TAB PO SCH (08:55)
[2018-09-14] MEDS: CHOLECALCIFEROL 1,000 UNIT TAB PO SCH (08:55)
[2018-09-14] MEDS: DOCUSATE SODIUM 10 MG/ML (10ML CUP) PO SCH ×3 (08:55→20:28)
[2018-09-14] MEDS: MEROPENEM 1 GM/50ML(PMX) 50 ML IVPB SCH ×2 (08:55→20:20)
[2018-09-14] MEDS: MEMANTINE 10 MG TAB PO SCH (08:56)
[2018-09-14] MEDS: ASPIRIN 81 MG TAB PO SCH (08:56)
[2018-09-14] MEDS: FUROSEMIDE 20 MG TAB PO SCH ×2 (08:56→20:22)
[2018-09-14] MEDS: ISOSORBIDE DINITRATE 10 MG TAB PO SCH ×3 (08:57→20:22)
[2018-09-14] MEDS: POTASSIUM CHLORIDE 20 MEQ POWDER FOR ORAL SOLN PO SCH (08:58)
[2018-09-14] MEDS: ENOXAPARIN 30 MG/0.3 ML SYG SC SCH (08:59)
[2018-09-14 14:50] VITALS: BP 113/64; PULSE 69; RESP 15
--- NOTE | 2018-09-14 17:15 | PN ---
Date/Time of Note Date/Time of Note DATE: 09/14/18 TIME: 17:15 Assessment/Plan VTE Prophylaxis Risk score (from Ns)>0 risk: 18 SCD applied (from Ns): Yes Pharmacological prophylaxis: LMWH Lines/Catheters IV Catheter Type (from Nrs): Saline Lock Urinary Cath still in place: Yes Reason Cath still needed: urinary retention Assessment/Plan Hospital Course Patient is undergoing treatment for urinary tract infection, case management is working on DC planning. Assessment/Plan -Proteus UTI, continue meropenem - Acute comminuted and mildly displaced distal femoral fracture along the distal aspect of the femoral intramedullary kelly. The fracture seems to be due to osteopenia since the patient did not have any fall or any obvious injury. Dr. Hines is following in orthopedic surgery consultation. Continue long-leg brace. - Hypertension. Continue Coreg and Norvasc. - Acute on chronic diastolic dysfunction congestive heart failure. Continue Lasix. - Dementia. Continue Namenda. - Osteopenia. Continue vitamin D. Further recommendations based on clinical course. Plan of care discussed with Dr. Mckinney Result Diagram: 09/13/18 0544 09/13/18 0544 Exam/Review of Systems Exam Vitals Vital Signs Date Temp Pulse Resp B/P (MAP) Pulse Ox O2 O2 Flow FiO2 Time Delivery Rate 09/14/18 97.6 69 15 113/64 99 Room Air 14:50 (80) Intake and Output 09/13/18 09/13/18 09/14/18 1515:00 23:00 07:00 IntakeIntake Total 118 ml 350 ml OutputOutput Total 500 ml 500 ml 300 ml BalanceBalance -382 ml -150 ml -300 ml Exam Constitutional: alert, frail Neck: supple Respiratory: clear to auscultation Cardiovascular: nl pulses Gastrointestinal: soft, non-tender Extremities: normal pulses Medications Medication Current Medications Acetaminophen (Tylenol Tab) 650 mg Q4H PRN PO MILD PAIN LEVEL 1-3; Start 09/07/18 at 01:30 Acetaminophen (Tylenol Tab) 650 mg Q6H PRN PO FOR TEMP>100.2; Start 09/07/18 at 01:30 Amlodipine Besylate (Norvasc) 10 mg DAILY PO Last administered on 09/14/18at 08:55; Admin Dose 10 MG; Start 09/07/18 at 09:00 Aspirin (Aspirin) 81 mg DAILY PO Last administered on 09/14/18 08:56; Admin Dose 81 MG; Start 09/07/18 at 09:00 Atorvastatin Calcium (Lipitor) 20 mg QHS PO Last administered on 09/13/18 21:49; Admin Dose 20 MG; Start 09/07/18 at 21:00 Carvedilol (Coreg) 3.125 mg BID PO Last administered on 09/14/18 08:56; Admin Dose 3.125 MG; Start 09/07/18 at 09:00 Cholecalciferol (Vitamin D) 2,000 unit DAILY PO Last administered on 09/14/18 08:55; Admin Dose 2,000 UNIT; Start 09/07/18 at 09:00 Furosemide (Lasix) 20 mg BID PO Last administered on 09/14/18 08:56; Admin Dose 20 MG; Start 09/07/18 at 09:00 Guaifenesin/ Dextromethorphan (Robitussin Dm Liquid Cup) 10 ml Q6H PRN PO COUGH; Start 09/07/18 at 01:30 Isosorbide Dinitrate (Isordil) 10 mg TID PO Last administered on 09/14/18 08:57; Admin Dose 10 MG; Start 09/07/18 at 09:00 Levothyroxine Sodium (Synthroid) 137 mcg BEFORE BREAKFAST PO Last administered on 09/13/18 06:07; Admin Dose 137 MCG; Start 09/07/18 at 07:00 Memantine (Namenda) 5 mg QHS PO Last administered on 09/13/18 21:48; Admin Dose 5 MG; Start 09/07/18 at 21:00 Memantine (Namenda) 10 mg DAILY PO Last administered on 09/14/18 08:56; Admin Dose 10 MG; Start 09/07/18 at 09:00 Tramadol HCl (Ultram) 50 mg Q12H PRN PO PAIN LEVEL 4-610 Last administered on 09/08/18 17:20; Admin Dose 50 MG; Start 09/07/18 at 01:30 Enoxaparin Sodium (Lovenox) 30 mg DAILY SC Last administered on 09/14/18 08:59; Admin Dose 30 MG; Start 09/07/18 at 09:00 Melatonin (Melatonin) 3 mg QHS PO Last administered on 09/13/18at 21:48; Admin Dose 3 MG; Start 09/07/18 at 21:00 [facility] This patient manuel... PRN PRN XX WOUND CARE; Start 09/07/18 at 04:00 Acetaminophen/ Hydrocodone Bitart ([place] (7.5-325)) 1 tab Q6H PRN PO MODERATE PAIN LEVEL 4-6 Last administered on 09/08/18at 00:26; Admin Dose 1 TAB; Start 09/07/18 at 10:30 Lansoprazole (Prevacid) 30 mg DAILY@06 PO Last administered on 09/13/18 06:07; Admin Dose 30 MG; Start 09/08/18 at 06:30 Docusate Sodium (Colace Liquid Cup) 100 mg BID PO Last administered on 09/14/18 08:55; Admin Dose 100 MG; Start 09/13/18 at 09:00 Potassium Chloride (Potassium Chloride Pwd/Soln) 20 meq DAILY PO Last administered on 09/14/18 08:58; Admin Dose 20 MEQ; Start 09/13/18 at 09:00 Meropenem/Sodium Chloride 50 ml @ 100 mls/hr Q12 IVPB Last administered on 09/14/18 08:55; Admin Dose 100 MLS/HR; Start 09/13/18 at 21:00; Stop 09/18/18 at 09:29 Diphenhydramine HCl (Benadryl) 25 mg Q6H PRN IV for reaction to merrem; Start 09/13/18 at 22:00 ALO GUERRERO Sep 14, 2018 17:15
[2018-09-14 20:00] VITALS: BP 135/71; PULSE 92; RESP 19
[2018-09-14] MEDS: ATORVASTATIN 20 MG TAB PO SCH (20:21)
[2018-09-14] MEDS: MELATONIN 3 MG TABLET PO SCH (20:21)
[2018-09-14] MEDS: MEMANTINE 5 MG TAB PO SCH (20:23)
[2018-09-15 02:50] VITALS: BP 124/67; PULSE 90; RESP 17
[2018-09-15] MEDS: LANSOPRAZOLE 30 MG CAP PO SCH (05:48)
[2018-09-15] MEDS: LEVOTHYROXINE 137 MCG TAB PO SCH (05:48)
[2018-09-15 07:22] VITALS: BP 133/69; PULSE 85; RESP 18
[2018-09-15] MEDS: MEROPENEM 1 GM/50ML(PMX) 50 ML IVPB SCH ×2 (08:49→21:54)
[2018-09-15] MEDS: DOCUSATE SODIUM 10 MG/ML (10ML CUP) PO SCH ×2 (08:49→21:55)
[2018-09-15] MEDS: AMLODIPINE 10 MG TAB PO SCH (08:50)
[2018-09-15] MEDS: FUROSEMIDE 20 MG TAB PO SCH ×2 (08:50→21:54)
[2018-09-15] MEDS: ASPIRIN 81 MG TAB PO SCH (08:50)
[2018-09-15] MEDS: MEMANTINE 10 MG TAB PO SCH (08:50)
[2018-09-15] MEDS: CHOLECALCIFEROL 1,000 UNIT TAB PO SCH (08:50)
[2018-09-15] MEDS: ISOSORBIDE DINITRATE 10 MG TAB PO SCH ×3 (08:51→21:55)
[2018-09-15] MEDS: ENOXAPARIN 30 MG/0.3 ML SYG SC SCH (08:53)
[2018-09-15] MEDS: POTASSIUM CHLORIDE 20 MEQ POWDER FOR ORAL SOLN PO SCH (08:57)
[2018-09-15] MEDS: HYDROCODONE/APAP (7.5/325) TAB PO PRN (11:03)
[2018-09-15 13:37] VITALS: BP 107/61; PULSE 75; RESP 18
--- NOTE | 2018-09-15 16:57 | PN ---
Date/Time of Note Date/Time of Note DATE: 09/15/18 TIME: 16:56 Assessment/Plan VTE Prophylaxis Risk score (from Ns)>0 risk: 15 SCD applied (from Ns): Yes Pharmacological prophylaxis: LMWH Lines/Catheters IV Catheter Type (from Nrsg): Saline Lock Urinary Cath still in place: Yes Reason Cath still needed: urinary retention Assessment/Plan Hospital Course No acute events, stable VS, patient is undergoing treatment for urinary tract infection, case management is working on DC planning. Assessment/Plan -Proteus UTI, continue meropenem - Acute comminuted and mildly displaced distal femoral fracture along the distal aspect of the femoral intramedullary kelly. The fracture seems to be due to osteopenia since the patient did not have any fall or any obvious injury. Dr. Hines is following in orthopedic surgery consultation. Continue long-leg brace. - Hypertension. Continue Coreg and Norvasc. - Acute on chronic diastolic dysfunction congestive heart failure. Continue Lasix. - Dementia. Continue Namenda. - Osteopenia. Continue vitamin D. Further recommendations based on clinical course. Plan of care discussed with Dr. Mckinney Result Diagram: 09/13/1844 09/13/1844 Exam/Review of Systems Exam Vitals Vital Signs Date Temp Pulse Resp B/P (MAP) Pulse Ox O2 O2 Flow FiO2 Time Delivery Rate 09/15/18 98.4 75 18 107/61 98 13:37 (76) 09/14/18 Room Air 14:50 Intake and Output 09/14/18 09/14/18 09/15/18 1515:00 23:00 07:00 IntakeIntake Total 50 ml 200 ml OutputOutput Total 250 ml BalanceBalance 50 ml -50 ml Exam Constitutional: alert, frail Neck: supple Respiratory: clear to auscultation Cardiovascular: nl pulses Gastrointestinal: soft, non-tender Extremities: normal pulses Medications Medication Current Medications Acetaminophen (Tylenol Tab) 650 mg Q4H PRN PO MILD PAIN LEVEL 1-3; Start 09/07/18 at 01:30 Acetaminophen (Tylenol Tab) 650 mg Q6H PRN PO FOR TEMP>100.2; Start 09/07/18 at 01:30 Amlodipine Besylate (Norvasc) 10 mg DAILY PO Last administered on 09/15/18at 08:50; Admin Dose 10 MG; Start 09/07/18 at 09:00 Aspirin (Aspirin) 81 mg DAILY PO Last administered on 09/15/18 08:50; Admin Dose 81 MG; Start 09/07/18 at 09:00 Atorvastatin Calcium (Lipitor) 20 mg QHS PO Last administered on 09/14/18 20:21; Admin Dose 20 MG; Start 09/07/18 at 21:00 Carvedilol (Coreg) 3.125 mg BID PO Last administered on 09/15/18 08:51; Admin Dose 3.125 MG; Start 09/07/18 at 09:00 Cholecalciferol (Vitamin D) 2,000 unit DAILY PO Last administered on 09/15/18 08:50; Admin Dose 2,000 UNIT; Start 09/07/18 at 09:00 Furosemide (Lasix) 20 mg BID PO Last administered on 09/15/18 08:50; Admin Dose 20 MG; Start 09/07/18 at 09:00 Guaifenesin/ Dextromethorphan (Robitussin Dm Liquid Cup) 10 ml Q6H PRN PO COUGH; Start 09/07/18 at 01:30 Isosorbide Dinitrate (Isordil) 10 mg TID PO Last administered on 09/15/18 08:51; Admin Dose 10 MG; Start 09/07/18 at 09:00 Levothyroxine Sodium (Synthroid) 137 mcg BEFORE BREAKFAST PO Last administered on 09/13/18 06:07; Admin Dose 137 MCG; Start 09/07/18 at 07:00 Memantine (Namenda) 5 mg QHS PO Last administered on 09/14/18 20:23; Admin Dose 5 MG; Start 09/07/18 at 21:00 Memantine (Namenda) 10 mg DAILY PO Last administered on 09/15/18 08:50; Admin Dose 10 MG; Start 09/07/18 at 09:00 Tramadol HCl (Ultram) 50 mg Q12H PRN PO PAIN LEVEL 4-6/10 Last administered on 09/08/18 17:20; Admin Dose 50 MG; Start 09/07/18 at 01:30 Enoxaparin Sodium (Lovenox) 30 mg DAILY SC Last administered on 09/15/18 08:53; Admin Dose 30 MG; Start 09/07/18 at 09:00 Melatonin (Melatonin) 3 mg QHS PO Last administered on 09/14/18 20:21; Admin Dose 3 MG; Start 09/07/18 at 21:00 Miscellaneous Information (Pending Santyl Order For Wound Care) This patient manuel... PRN PRN XX WOUND CARE; Start 09/07/18 at 04:00 Acetaminophen/ Hydrocodone Bitart ([place] (7.5-325)) 1 tab Q6H PRN PO MODERATE PAIN LEVEL 4-6 Last administered on 09/15/18 11:03; Admin Dose 1 TAB; Start 09/07/18 at 10:30 Lansoprazole (Prevacid) 30 mg DAILY@06 PO Last administered on 09/13/18 06:07; Admin Dose 30 MG; Start 09/08/18 at 06:30 Docusate Sodium (Colace Liquid Cup) 100 mg BID PO Last administered on 09/15/18 08:49; Admin Dose 100 MG; Start 09/13/18 at 09:00 Potassium Chloride (Potassium Chloride Pwd/Soln) 20 meq DAILY PO Last admin istered on 09/15/18 08:57; Admin Dose 20 MEQ; Start 09/13/18 at 09:00 Meropenem/Sodium Chloride 50 ml @ 100 mls/hr Q12 IVPB Last administered on 09/15/18 08:49; Admin Dose 100 MLS/HR; Start 09/13/18 at 21:00; Stop 09/18/18 at 09:29 Diphenhydramine HCl (Benadryl) 25 mg Q6H PRN IV for reaction to merrem; Start 09/13/18 at 22:00 ALO GUERRERO Sep 15, 2018 16:57
[2018-09-15 19:28] VITALS: BP 126/71; PULSE 85; RESP 18
[2018-09-15] MEDS: MELATONIN 3 MG TABLET PO SCH (21:55)
[2018-09-15] MEDS: ATORVASTATIN 20 MG TAB PO SCH (21:55)
[2018-09-15] MEDS: MEMANTINE 5 MG TAB PO SCH (21:55)
[2018-09-16 02:38] VITALS: BP 115/70; PULSE 87; RESP 16
[2018-09-16] MEDS: LANSOPRAZOLE 30 MG CAP PO SCH (06:20)
[2018-09-16] MEDS: LEVOTHYROXINE 137 MCG TAB PO SCH (06:20)
[2018-09-16 07:30] VITALS: BP 122/71; PULSE 79; RESP 18
[2018-09-16] MEDS: ASPIRIN 81 MG TAB PO SCH (08:56)
[2018-09-16] MEDS: POTASSIUM CHLORIDE 20 MEQ POWDER FOR ORAL SOLN PO SCH (08:56)
[2018-09-16] MEDS: MEMANTINE 10 MG TAB PO SCH (08:56)
[2018-09-16] MEDS: AMLODIPINE 10 MG TAB PO SCH (08:56)
[2018-09-16] MEDS: ISOSORBIDE DINITRATE 10 MG TAB PO SCH ×2 (08:56→13:00)
[2018-09-16] MEDS: FUROSEMIDE 20 MG TAB PO SCH (08:57)
[2018-09-16] MEDS: DOCUSATE SODIUM 10 MG/ML (10ML CUP) PO SCH ×2 (08:58→11:24)
[2018-09-16] MEDS: CHOLECALCIFEROL 1,000 UNIT TAB PO SCH (08:58)
[2018-09-16] MEDS: MEROPENEM 1 GM/50ML(PMX) 50 ML IVPB SCH (08:58)
[2018-09-16] MEDS: ENOXAPARIN 30 MG/0.3 ML SYG SC SCH (09:05)
[2018-09-16 14:25] VITALS: BP 123/71; PULSE 83; RESP 18
[2018-09-16 19:54] VITALS: BP 118/63; PULSE 85; RESP 18
--- NOTE | 2018-09-16 22:55 | DS ---
Date/Time of Note Date/Time of Note DATE: 09/16/18 TIME: 22:54 Discharge Summary Admission/Discharge Info Admit Date/Time Sep 06, 2018 at 18:58 Discharge Date/Time Sep 16, 2018 at 21:10 Patient Condition: Stable Hx of Present Illness The patient is an 88-year-old female well known to me from previous admission. The patient has Alzheimer's dementia, diastolic heart failure, hypertension, dyslipidemia, hypothyroidism, osteoarthritis, also history of bilateral hip fracture status post surgery. The patient also has history of chronic soft tissue mass in the left thigh for the last several years. The patient is resident of a [facility] facility and was brought into ER because of left thigh swelling. The patient did not have any fall, no reported fever or chills. However, the patient's white count at [facility] was elevated. The patient did not have any cough or chest congestion. The patient did not have any leg edema. The patient denied any fever or chills. No reported vo miting. The patient remains awake, alert, however, confused. The patient was sent to ER and femur x-ray done in ER revealed acute comminuted and mildly displaced distal femoral fracture. The patient also had osteopenia and also left hip and knee joint osteoarthritis, postsurgical changes of left femoral artery. I spoke with Dr. Valencia from ER and requested him to notify Dr. Hines, who had seen her before. The patient could not provide any useful review of systems due to Alzheimer's disease. The patient, however, did not have any shortness of breath, chest congestion, abdominal distention or any acute skin rash. Hospital Course -Proteus UTI, continue meropenem - Acute comminuted and mildly displaced distal femoral fracture along the distal aspect of the femoral intramedullary kelly. The fracture seems to be due to osteopenia since the patient did not have any fall or any obvious injury. Dr. Hines is following in orthopedic surgery consultation. Continue long-leg brace. - Hypertension. Continue Coreg and Norvasc. - Acute on chronic diastolic dysfunction congestive heart failure. Continue Lasix. - Dementia. Continue Namenda. - Osteopenia. Continue vitamin D. Plan of care discussed with Dr. Mckinney Home Meds Reported Medications Guaifenesin-Dextromethorphan* (Robitussin* DM) 100MG/10MG/5ML Syrup, 10 ML PO Q6H PRN for COUGH, ML STOP DATE 09/17/18 09/06/18 Memantine* (Namenda*) 10 Mg Tablet, 10 MG PO DAILY, #30 TAB 09/06/18 Memantine* (Namenda*) 5 Mg Tablet, 5 MG PO QHS, #30 TAB 09/06/18 Carvedilol* (Carvedilol*) 3.125 Mg Tablet, 3.125 MG PO BID, #60 TAB HOLD IF SBP<110 OR HR<60 09/06/18 Tramadol Hcl* (Ultram*) 50 Mg Tablet, 50 MG PO Q12H PRN for PAIN LEVEL 4-10, TAB 05/20/18 Potassium Chloride* (Potassium Chloride*) 20 Meq Tablet.er, 20 MEQ PO DAILY, TAB.SA 05/20/18 Amlodipine Besylate* (Norvasc*) 10 Mg Tablet, 10 MG PO DAILY, TAB HOLD FOR SBP<110 OR MN<60 05/20/18 Melatonin (Melatonin) 3 Mg Tablet.sa, 3 MG PO HS, TAB.SA 05/20/18 Atorvastatin Calcium* (Atorvastatin Calcium*) 20 Mg Tablet, 20 MG PO QHS, #30 TAB 05/20/18 Levothyroxine Sodium* (Levothyroxine Sodium*) 137 Mcg Tablet, 137 MCG PO BEFORE BREAKFAST, #30 TAB 05/20/18 Furosemide* (Lasix*) 20 Mg Tablet, 20 MG PO BID, TAB HOLD FOR SBP<110 OR MN<60 05/20/18 Isosorbide Dinitrate* (Isosorbide Dinitrate*) 10 Mg Tablet, 10 MG PO TID, TAB HOLD FOR SBP<110 OR MN<60 05/20/18 Docusate Sodium* (Colace*) 100 Mg Capsule, 100 MG PO BID, #60 CAP 05/20/18 Cholecalciferol* (Vitamin D3*) 1,000 Unit Tablet, 2000 UNIT PO DAILY, TAB 05/20/18 Aspirin* (Aspirin* Chew) 81 Mg Tab.chew, 81 MG PO DAILY, TAB.CHEW 05/20/18 Acetaminophen* (Tylenol*) 325 Mg Tablet, 650 MG PO Q6H PRN for FOR TEMP>100.2, TAB 05/20/18 Discontinued Reported Medications Hydrocodone/Acetaminophen (Ehrenberg 5-325 Tablet) 1 Each Tablet, 1 EACH PO Q8H, TAB FOR PAIN LEVEL 7-10/10 09/06/18 Acetaminophen* (Tylenol*) 325 Mg Tablet, 650 MG PO Q4H PRN for MILD PAIN LEVEL 1-3, TAB 09/06/18 Omeprazole* (Omeprazole*) 20 Mg Capsule.dr, 40 MG PO QAM, #30 CAP 05/20/18 Follow-up Plan Continue immobilization with a long brace, follow-up with Dr. Hines in 2 weeks. Primary Care Provider Troy Mckinney MD Time spent on discharge: > 30 minutes Pending Labs Laboratory Tests Test 09/16/18 13:20 Hepatitis B Surface Antigen NEGATIVE (NEGATIVE) Hepatitis B Core Total Antibody REACTIVE (NEGATIVE) Hepatitis C Antibody NEGATIVE (NEGATIVE) ALO GUERRERO Sep 16, 2018 22:55
== END 2018-09-16 21:10 | DRG 542 ==
LOC: E/R 16:04 → 2NE 18:58 → 5EC 09-07 20:50
PROVIDERS: ADMIT Internal Medicine; ATTEND Internal Medicine
DX: M80.052A Age-related osteoporosis with current pathological fracture, left femur, initial encounter for fracture (principal); I50.33 Acute on chronic diastolic (congestive) heart failure; N39.0 Urinary tract infection, site not specified; M85.80 Other specified disorders of bone density and structure, unspecified site; I11.0 Hypertensive heart disease with heart failure; E03.9 Hypothyroidism, unspecified; Z96.643 Presence of artificial hip joint, bilateral; G30.9 Alzheimer's disease, unspecified; F02.80 Dementia in other diseases classified elsewhere, unspecified severity, without behavioral disturbance, psychotic disturbance, mood disturbance, and anxiety; E78.5 Hyperlipidemia, unspecified; F32.9 Major depressive disorder, single episode, unspecified; F41.9 Anxiety disorder, unspecified; G47.00 Insomnia, unspecified
CPT/HCPCS: 71045; 73550; 73560; 80048; 81001; 83880; 84484; 85025; 85610; 85730; 86704; 86709; 86803; 87081; 87086; 87340; 93005; 93971; J1650; J1956; J2185; L1832